=== PATIENT | male | born 1980 | race Caucasian/White ===

== ENCOUNTER 2019-07-26 17:22 | Outpatient (CLI) | payer OTHER, SELFPAY ==
--- NOTE | ~2019-07-26 | XR_ITS ---
XR shoulder LT min 2V 07/26/2019 17:54 INDICATION: Left shoulder pain PROCEDURE: 2 views left shoulder COMPARISON: No prior studies for comparison. FINDINGS: Fracture, dislocation or subluxation is not identified. The soft tissues appear within norm al limits. No foreign bodies are identified. IMPRESSION: 1: NO ACUTE BONE OR JOINT ABNORMALITY IDENTIFIED. Reviewed, dictated and finalized at location A. [facility]
== END 2019-07-26 17:23 | disposition home or self-care (01) ==
LOC: CHSIMG 17:26
PROVIDERS: PCP Family Medicine; Visit Provider Family Medicine
DX: M75.42 Impingement syndrome of left shoulder (principal); M25.512 Pain in left shoulder
CPT/HCPCS: 73030

== ENCOUNTER 2019-08-01 16:53 | Outpatient (RCR) | payer OTHER, SELFPAY ==
--- NOTE | 2019-08-01 17:55 | PTOPEVAL ---
Thank you for referring this patient to [facility] [place]. Please review, sign, date and return this plan of care [facility]. I agree with and certify that the following plan of care is medically necessary. Referring Physician Date Admitting Provider: Attending Provider: Camron Nielsen MD Referring Provider: *PT Outpatient Evaluation Start: 08/01/19 17:08 Freq: Status: Active Protocol: Document 08/01/19 17:07 OLMAN (Rec: 08/01/19 17:32 OLMAN [email or web address]) Therapy Assessment Status Assessment Status Assessment Status Evaluation Evaluation Information Problem Diagnosis left shoulder pain, impingement syndrome Onset 09/04/18 Subjective Information Pt. reports that he developed Query Text:As Reported By Patient/ shoulder pain around September of Family last year. He notes no particular incident. He describes on the top of the left shoulder and notes pain with reaching overhead. He reports no difficulty with sleeping. 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 He reports that his goal is to decrease his shoulder pain. Diagnostic Tests X-Rays For This Problem Yes Prior Level of Function Activity Level (Last 3 Months) Hand Dominance Left Activity of Daily Living Ability Independent Indoor/Home Mobility Independent Community Mobility Independent Stairs Ability Independent Functional Cognition (Planning, Shopping Independent , Taking Medications) Cooking Yes Cleaning Yes Laundry Yes Shopping Yes Driving Yes Pain Assessment Pain Scale Pain Scale Used Numeric (1 - 10) Self Report Pain Assessment Left Shoulder(s) Reported Pain Level 8 Pain Score Pain Score 8: Self Report Upper Extremity Range of Motion General Upper Extremity Range of Motion Gross Upper Extremity Range of Motion right shoulder flexion 170 Comments degrees, left shoulder flexion 138 degrees, right shoulder IR 75 degrees, left shoulder IR 50 degrees, right shoulder ER 95 degrees, left shoulder ER 75 degrees Upper Extremity
--- NOTE | 2019-09-03 11:49 | PTOPEVAL ---
Thank you for referring this patient to [facility]. Please review, sign, date and return this plan of care DIANNA. I agree with and certify that the following plan of care is medically necessary. Referring Physician Date Admitting Provider: Attending Provider: Camron Nielsen MD Referring Provider: *PT Outpatient Evaluation Start: 08/01/19 17:08 Freq: Status: Active Protocol: Document 08/31/19 12:55 OLMAN (Rec: 09/03/19 11:43 OLMAN [id number]) Therapy Assessment Status Assessment Status Assessment Status Discharge Evaluation Information Problem Diagnosis left shoulder pain Subjective Information Pt. reports that his pain is Query Text:As Reported By Patient/ much less intense. He states Family that despite pain improvments, he continues to note discouragement in regards to end range pain with overhead movement. He denies any difficulty with sleep at this time. Pt. inquires regarding possible injection. Pain Assessment Pain Scale Pain Scale Used Numeric (1 - 10) Self Report Pain Assessment Left Shoulder(s) Reported Pain Level 4 Lowest Pain Intensity 0 Greatest Pain Intensity 4 Pain Score Pain Score 4: Self Report Upper Extremity Range of Motion General Upper Extremity Range of Motion Gross Upper Extremity Range of Motion left shoulder flexion AROM 150 Comments degrees, left shoulder ER AROM 92 degrees, left shoulder IR AROM 72 degrees. Upper Extremity Muscle Strength Testing General Upper Extremity Strength Gross Upper Extremity Strength Comments left shoulder flexion 5/5, left shoulder abduction 5/5, left shoulder IR 5/5, left shoulder ER 4+/5 Special Tests-Upper Extremity Shoulder Special Tests Hawkin's Armand Test Positive Left Shoulder Special Tests Comments Neers Impingement test is positive on the left PT Clinical Summary Clinical Summary Protocol: PTEVCODE PT Clinical Summary Pt. has demonstrated progress in regards to range of motion, reported pain levels and proximal left u.e. strength. Despite these improvments he still has pain at end range of motion. At this time recommend pt. follow up with his
== END 2019-08-31 09:23 | disposition home or self-care (01) ==
LOC: CHSPT 16:53
PROVIDERS: PCP Family Medicine; Visit Provider Family Medicine
DX: M25.512 Pain in left shoulder (principal); M75.42 Impingement syndrome of left shoulder
CPT/HCPCS: 97014; 97110; 97140; 97161; G0283

== ENCOUNTER 2019-10-03 08:13 | Outpatient (CLI) | payer OTHER, SELFPAY ==
--- NOTE | ~2019-10-03 | XR_ITS ---
EXAMINATION: XR chest 2V 10/03/2019 08:33 INDICATION: Hypertension. Hyperhidrosis. PROCEDURE: 2 view chest COMPARISON: No prior studies for comparison. FINDINGS: The lungs are clear. The cardiomediastinal silhouette is within normal limits. There are no pleural effusions. There is no pneumothorax suspected. IMPRESSION: 1: NO ACUTE CARDIOPULMONARY DISEASE. Reviewed, dictated and finalized at location A.
[2019-10-03 08:26] LABS: Basophils Absolute Auto 0.05 K/mm3 (0.00-0.10); Basophils Percent Auto 0.7 % (0.0-1.0); Eosinophils Absolute Auto 0.23 K/mm3 (0.02-0.50); Eosinophils Percent Auto 3.3 % (1.0-6.0); Hematocrit 45.5 % (40.0-54.0); Hemoglobin 15.9 g/dL (14.0-18.0); Immature Granulocyte Absolute 0.04 K/mm3 (0.00-0.00); Immature Granulocyte Percent A 0.6 % (0.0-0.0); Lymphocytes Absolute Auto 2.05 K/mm3 (1.10-4.50); Lymphocytes Percent Auto 29.5 % (18.0-42.0); Mean Corpuscular HGB Conc 34.9 g/dL (32.0-36.0); Mean Corpuscular Hemoglobin 29.8 pg (27.0-31.0); Mean Corpuscular Volume 85.4 fL (78.0-102.0); Monocytes Absolute Auto 0.56 K/mm3 (0.10-0.90); Monocytes Percent Auto 8.1 % (2.0-11.0); Neutrophils Percent Auto 57.8 % (50.0-70.0); Platelet Count Result 240 K/mm3 (150-420); Red Blood Count 5.33 M/mm3 (4.70-6.10); Red Cell Distribution Width 12.4 % (11.6-14.4)
[2019-10-03 09:25] LABS: Erythrocyte Sedimentation Rate 1 mm/hr (0-15)
[2019-10-03 10:37] LABS: Alanine Aminotransferase 72 U/L (16-63); Alkaline Phosphatase 79 U/L (46-116); Anion Gap 15.6 mmol/L (7-16); Aspartate Amino Transferase 34 U/L (15-37); Bilirubin,Total 1.8 mg/dL (0.00-1.00); Blood Urea Nitrogen 12 mg/dL (7-18); Carbon Dioxide 25 mmol/L (21-32); Chloride 104 mmol/L (98-108); Estimated Glomerular Filt Rate > 60; Glucose 99 mg/dL (70-99); Osmolality Calculated 289 mOsm/kg (285-295); Potassium 4.6 mmol/L (3.5-5.1); Sodium 140 mmol/L (136-145); Total Protein 6.8 g/dL (6.4-8.2)
[2019-10-03 10:39] LABS: CRP < 0.2 mg/dL (0.0-0.9)
[2019-10-03 10:40] LABS: Thyroid Stimulating Hormone Reflex 2.43 u/IU/mL (0.36-3.74)
== END 2019-10-03 08:14 | disposition home or self-care (01) ==
LOC: CHSLAB 08:16
PROVIDERS: PCP Family Medicine; Visit Provider Specialist
DX: R61 Generalized hyperhidrosis (principal); I10 Essential (primary) hypertension
CPT/HCPCS: 36415; 71046; 80053; 84443; 85025; 85652; 86140

== ENCOUNTER 2020-09-11 07:29 | Outpatient (CLI) | payer OTHER, SELFPAY ==
--- NOTE | ~2020-09-11 | MR_ITS ---
EXAMINATION: MR shoulder LT wo con DATE: 09/11/2020 08:38 INDICATION: Impingement syndrome of the left shoulder TECHNIQUE: Magnetic resonance imaging (MRI) of the left shoulder was performed without intravenous co ntrast. Sequences included axial PD-weighted FS FSE, coronal oblique PD-weighted FS FSE, coronal obli que T2-weighted FS FSE, sagittal PD-weighted FS FSE, and sagittal T1-weighted SE. COMPARISON: None. FINDINGS: Coracoacromial arch: The acromion undersurface is curved in morphology (type II). The coracoacromial ligament is normal. M ild acromioclavicular osteoarthritis with tiny inferior osteophyte at the lateral head of the clavicl e. Rotator cuff: Mild supraspinatus and infraspinatus tendinopathy without discrete tear. Subscapularis and teres demetrius r tendons are normal. Normal rotator cuff muscle bulk and signal. Biceps tendon, glenoid labrum and glenohumeral cartilage: Long head of the biceps tendon is normal. Glenohumeral osteoarthritis with mild to moderate nonunifor m joint space narrowing with partial thickness cartilage loss with smooth chondral surface and withou t degenerative subchondral changes most prominent at the posterior superior glenoid and at the greens cutter ior and superomedial aspect of the humeral head. There are moderate size marginal osteophytes along t he inferior aspect of the humeral head. There is a linear tear at the 9:00-10:00 position of the post erior glenoid labrum. More amorphous increased signal extending into the superior glenoid labrum whic h appears consistent with less well-defined degenerative tearing. Fluid: Physiologic amount of fluid in the glenohumeral joint and biceps tendon sheath. No loose osteochondra l bodies. Small amount of fluid in the subacromial/subdeltoid bursa consistent with mild bursitis. Bones: There is cystic change at the humeral head at the bare space along the medial facet of the greater tu berosity. Otherwise normal marrow signal with no fracture or pathologic marrow replacing process. IMPRESSION: 1. Mild to moderate left glenohumeral osteoarthritis with degenerative tearing of the superior labrum and well-defined linear tear at the posterior labrum. 2. Mild supraspinatus and infraspinatus tendinopathy without discrete tear. Reviewed, dictated and finalized at location B.
== END 2020-09-11 07:30 | disposition home or self-care (01) ==
PROVIDERS: PCP Family Medicine; Visit Provider Orthopaedic Surgery
DX: M75.42 Impingement syndrome of left shoulder (principal); M19.012 Primary osteoarthritis, left shoulder
CPT/HCPCS: 73221

== ENCOUNTER 2020-09-25 14:51 | Outpatient (CLI) | payer OTHER, SELFPAY ==
--- NOTE | 2020-09-25 14:55 | ECG_ITS ---
Measurements Intervals [place] Rate: 58 P: 27 ID: [id number] QRS: 28 QRSD: 93 T: 16 QT: 395 QTc: 390 Interpretive Statements SINUS BRADYCARDIA DELAYED PRECORDIAL R/S TRANSITION BASELINE ARTIFACT- I, II, AVR, AVL, AVF BORDERLINE ECG Electronically Signed On 09-25-2020 15:22:10 CDT by Juan Torres D.O.
== END 2020-09-25 14:52 | disposition home or self-care (01) ==
LOC: ANHSURGERY 14:55
PROVIDERS: PCP Family Medicine; Visit Provider Orthopaedic Surgery
DX: Z01.818 Encounter for other preprocedural examination (principal); I10 Essential (primary) hypertension; E78.5 Hyperlipidemia, unspecified
CPT/HCPCS: 93005

== ENCOUNTER → 2020-09-30 01:04 | Outpatient (CLI) | payer OTHER, SELFPAY ==
[2020-09-30 20:47] LABS: SARS-CoV-2 RNA PCR Negative
== END ==
PROVIDERS: PCP Family Medicine; Visit Provider Orthopaedic Surgery
DX: Z01.812 Encounter for preprocedural laboratory examination (principal); Z20.822 Contact with and (suspected) exposure to COVID-19
CPT/HCPCS: C9803; U0003; U0005

== ENCOUNTER 2020-10-03 01:02 | Day surgery (SDC) | payer OTHER, SELFPAY ==
[2020-09-24 13:24] VITALS: BMI 38.2
--- NOTE | 2020-10-02 12:32 | WPDANESEPPF ---
Anes - Initial Pre Proc Eval Procedure: Operation Date: 10/03/20 12:30 Proposed Procedures p Left Shoulder Arthroscopic Labral Debridement And Subacromial Decompression, Posterior Capsular Release - Jose Stone MD Date/Time: 10/02/20 12:32 Surgeon: Jose Stone MD Pre Op Diagnosis: primary OA, Left Shoulder Patient Data Age: 40 Gender: M Height: 1.83 m Weight: 128 kg Allergies Allergy/AdvReac Type Severity Reaction Status Date / Time No Known Allergies Allergy Verified 09/24/20 13:21 Home Medications Medication Instructions Recorded Confirmed Type atenolol 25 mg tablet 50 mg PO DAILY tablet 05/17/19 09/24/20 History paroxetine HCl 20 mg tablet 10 mg PO DAILY 05/17/19 09/24/20 History rosuvastatin 20 mg tablet 20 mg PO DAILY 07/26/19 09/24/20 History Patient hx anesthesia problems: none Family hx anesthesia problems: none PMFSH Past Medical History Medical History (Updated 09/15/20 @ 16:03 by Jose Stone MD) Depression Hyperlipidemia Hypertension Impingement syndrome, shoulder, left YASMANI (obstructive sleep apnea) Uses CPAP Overweight Surgical History Surgical History History of ear surgery Hole in Right Eardrum . Family History Family History Unknown Arthritis Social History Social History Smoking packs per day: 1 Smoking cigarettes per day: 20.0 Years smoked: 17 Smoking pack-years: 17.00 Smoking status: Former smoker Tobacco type: cigarettes Smoking end date: 06/06/14 Alcohol intake: current Alcohol use details: 4/MONTH Substance use: never Substance use type: does not use Living arrangements: with family Additional living arrangements comments: Single. No Children. Additional occupation/education comments: Works at [employer] Gender identity (if verbalized by the patient): Male Spiritual care concerns: No Anes - Eval Final PreProcedure Day of Procedure 10/02/20 12:32 Patient weight: obese Heart: regular rate and rhythm Lungs: clear to auscultation and normal air movement Airway: Mallampati scale class II Neurological: alert and oriented Last oral intake: >/= 8 hours ASA classification: III Emergent: no Anesthetic plan: proceed Anesthesia type and monitoring: general ETT and standard monitoring Informed Consent: The patient's anesthetic plan and its attendant risks and benefits were discussed with the patient/family/POA. Questions were solicited and answers provided to the satisfaction of the patient/family/POA.
--- NOTE | 2020-10-02 12:37 | WPDANESPNB ---
Anes - Peripheral Nerve Block Date/Time: 10/02/20 12:37 I have discussed with the patient/family/POA the placement of a peripheral nerve block for post-operative pain management, including associated risks, benefits, complications, and side effects. Alternative methods of post-operative analgesia were detailed. Questions were solicited and answers provided to the satisfaction of the patient/family/POA. Time-Out: A pre-procedural Time-Out was completed immediately before starting the procedure and confirmed: Patient Identification, Site, Procedure, Patient Position and the Availability of Requisite Equipment. Clinical Indications: Acute post-operative pain management requested by the operative surgeon. Nerve Block Insertion Note Anes-nerve block: interscalene left Patient position: supine Skin prep: chlorhexidine Needle: 22 gauge, stimulating, insulated echogenic needle. Needle length: 50 mm Technique: ultrasound Injectate: bupivacaine 0.5% with epi 5 mcg/ml (30cc- no epi) Observations: tolerated well Complications: none Procedure start time:: 1209 Procedure end time:: 1213
[2020-10-03] VITALS (13 sets, daily range): BP systolic 118–173; BP diastolic 62–101; PULSE 50–74; RESP 14–18; TEMP 36.3–36.6; O2SAT 91–100
--- NOTE | 2020-10-03 07:28 | WPDHPUPDATE1 ---
History and Physical Update Update Date/Time: 10/03/20 07:28 History and Physical has been reviewed, including an updated exam of the patient. There are NO changes in the patient's condition. Risks, benefits, and alternatives have been discussed and questions answered. Patient agrees to proceed with procedure.
[2020-10-03] MEDS: ACETAMINOPHEN 500 MG TABLET 1000 MG PO (11:38)
[2020-10-03] MEDS: LACTATED RINGERS 1,000 ML 30 ML IV CONT ×2 (11:38→15:00)
[2020-10-03] MEDS: KETOROLAC 15 MG/ML VIAL (*BKC) IV PUSH (11:38)
[2020-10-03] MEDS: ceFAZolin 3 GM/D5W 100 ML 100 ML IVPB (12:29)
--- NOTE | 2020-10-03 17:19 | PM.PROC ---
Procedure Note - Detailed Date of procedure: 10/03/20 Post-op diagnosis: other (1. Degenerative arthritis left shoulder. 2. Impingement syndrome ) Procedure performed: 1. Arthroscopic labral debridement with chondroplasty. 2. Arthroscopic subacromial decompression. Description of procedure: The humeral head showed a large area of exposed bone, posterior superiorly. Early osteophytes were forming. Minimal synovitis; no contracture. Labrum was degenerative particularly anteriorly and posteriorly. The subscapularis was intact. No evidence of subcoracoid impingement. The posterior superior labrum was carefully trimmed and debrided. Exposed bone was evident along the entire posterior section of the glenoid approximately 15-20%. The biceps tendon appeared normal and the superior labrum was intact. The rotator cuff appeared normal both on the articular and bursal side. There was slight evidence of subacromial impingement and modest acromioplasty was performed. Anesthesia: GETA and regional Surgeon: Jose Stone MD Food And Beverage Cashier: Evelyn Carvalho PA-C Estimated blood loss (mL): 10 Complications: None Condition: stable Disposition: PACU Findings: Patient was given an interscalene block in the holding area. Preoperative antibiotics were given. The patient was brought to the operating room. Careful positioning in the lateral decubitus position was accomplished. The head neck were carefully positioned. An axillary roll was placed. The shoulder was examined. No significant instability or pathologic contracture was identified. The shoulder was prepped and draped in the usual sterile fashion. Standard posterior and anterior arthroscopic portals were established. The shoulder was inspected. The humeral head showed a large area of exposed bone, posterior superiorly. Early osteophytes were forming. Mild synovitis; no contracture. Labrum was degenerative particularly anteriorly and posteriorly. The subscapularis was intact. No evidence of subcoracoid impingement. The posterior labrum was carefully trimmed and debrided. Exposed bone was evident along the entire posterior section of the glenoid approximately 15-20%. The biceps tendon appeared normal and the superior labrum was stable. The tendon was pulled into the joint and found to have no evidence of tendinosis or tearing at the intertubercular portion. The articular rotator cuff appeared normal. Attention was turned to the subacromial space. A complete bursectomy was performed. An accessory lateral portal was created. The acromion was clearly visualized. There was subtle evidence of impingement on the bursal side rotator cuff without any significant tearing. The coracoacromial ligament was released. Careful acromioplasty was performed utilizing views from both lateral and posterior. Loose bone fragments were carefully irrigated from the joint. The arthroscopic instruments were removed. The wounds were closed with interrupted 3-0 Monocryl suture followed by Steri-Strips. A sterile dressing was applied with a sling. The patient was extubated and brought to the recovery room in stable condition. There were no complications.
== END 2020-10-03 17:42 | disposition home or self-care (01) ==
PROVIDERS: PCP Family Medicine; Visit Provider Orthopaedic Surgery
PROC: (CPT 29805; principal; 2020-10-03 12:30)
DX: M19.012 Primary osteoarthritis, left shoulder (principal); M75.42 Impingement syndrome of left shoulder; M23.42 Loose body in knee, left knee; G89.18 Other acute postprocedural pain; I10 Essential (primary) hypertension; E78.5 Hyperlipidemia, unspecified; G47.33 Obstructive sleep apnea (adult) (pediatric); E66.9 Obesity, unspecified; Z68.38 Body mass index [BMI] 38.0-38.9, adult; F32.9 Major depressive disorder, single episode, unspecified; Z87.891 Personal history of nicotine dependence
CPT/HCPCS: 64415; 29822; 93005; 94002; 94660; A4565; A9270; C9803; J0330; J0690; J1100; J1200; J1885; J2250; J2405; J2704; J2710; J3010; J7120; U0003; U0005

== ENCOUNTER 2020-10-10 07:57 | Outpatient (RCR) | payer OTHER, SELFPAY ==
--- NOTE | 2020-10-10 11:51 | PCPTNOTE ---
On 10/10/20, the student, [Lyssa Potter, SPT], provided care and completed [employer] documentation on this patient. I have reviewed the student's documentation and agree with the findings.
--- NOTE | 2020-10-10 12:23 | PTOPEVAL ---
Thank you for referring Scott Monsalve to [facility].? The patient is scheduled to be seen for therapy? ____x/week for ___ weeks. Please review, sign, date and return this plan of care DIANNA. I agree with and certify that the following plan of care is medically necessary. Referring Physician Date Admitting Provider: Attending Provider: Jose Stone MD Referring Provider: *PT Outpatient Evaluation Start: 10/10/20 07:54 Freq: Status: Active Protocol: Document 10/10/20 08:00 MS (Rec: 10/10/20 10:52 MS [email or web address]) Therapy Assessment Status Assessment Status Assessment Status Evaluation Outpatient Past Medical History Neurological History Hx Neurological Disorders No Significant History Cardiovascular History Hx Hypercholesterolemia Yes Hx Hypertension Yes Respiratory History Hx Sleep Apnea Yes: WEARS CPAP Hx Other Respiratory Disorders Yes: COVID + 06/27/20 - BODY ACHES, SNEEZING Gastrointestinal History Hx Gastrointestinal Disorders No Significant History Genitourinary History Hx Genitourinary Disorders No Significant History Musculoskeletal History Hx Arthritis Yes: BACK, HIP Hx Other Musculoskeletal Disorders Yes: OA LT SHOULDER CURRENTLY Hematological History Hx Hematological Disorders No Significant History Endocrine History Hx Endocrine Disorders No Significant History HEENT History Hx Ear Surgery Yes: 1997 Integumentary History Hx Skin Disorders No Significant History Reproductive History Hx Reproductive Disorders No Significant History Psychosocial History Hx Anxiety Yes Pain History History of Any Previous or Ongoing No Significant History Instance of Pain Anesthesia History Hx Anesthesia Reactions No Significant History Evaluation Information Problem Diagnosis L labral debridement, SAD, posterior capsule release Onset 10/03/20 Additional Evaluation Detail quick dash = 88% functionally declined Subjective Information Mr. Monsalve is a 40 year old Query Text:As Reported By Patient/ male who reports to the clinic Family s/p L labral debridement, SAD , and posterior capsule release. He reports he enters to the clinic by getting a ride from his mother who he lives in addition to his father. 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 Part of his job d
--- NOTE | 2020-10-15 16:09 | PCPTNOTE ---
On 10/15/20, the student, [Lyssa Potter, SPT], provided care and completed [employer] documentation on this patient. I have reviewed the student's documentation and agree with the findings.
--- NOTE | 2020-10-22 10:59 | PCPTNOTE ---
On 10/22/20, the student, [Lyssa Potter, SPT], provided care and completed [employer] documentation on this patient. I have reviewed the student's documentation and agree with the findings.
--- NOTE | 2020-11-06 09:16 | PCPTNOTE ---
Patient is a 40 year old male that has participated in 8 visits s/p L shoulder labral debridement. The patient presents with 174 degrees of flexion, 84 degrees of external rotation, and 74 degrees of internal rotation. He also presents with improved strength in the LUE: flexion 4+/5, ER 4/5, IR 4+/5. The patient has been progressing with open chained strengthening exercises with no increase in pain or discomfort and has consistently reported minimal pain over the past few visits. Thank you for this referral, Pamela Horton DPT
--- NOTE | 2020-11-10 14:30 | PTOPEVAL ---
Thank you for referring Scott Monsalve to [facility].? The patient is scheduled to be seen for therapy? ____x/week for ___ weeks. Please review, sign, date and return this plan of care DIANNA. I agree with and certify that the following plan of care is medically necessary. Referring Physician Date Admitting Provider: Attending Provider: Jose Stone MD Referring Provider: *PT Outpatient Evaluation Start: 10/10/20 07:54 Freq: Status: Active Protocol: Document 11/10/20 13:56 [facility] (Rec: 11/10/20 14:27 [facility] [email or web address]) Therapy Assessment Status Assessment Status Assessment Status Discharge Outpatient Past Medical History Neurological History Hx Neurological Disorders No Significant History Cardiovascular History Hx Hypercholesterolemia Yes Hx Hypertension Yes Respiratory History Hx Sleep Apnea Yes: WEARS CPAP Hx Other Respiratory Disorders Yes: COVID + 06/27/20 - BODY ACHES, SNEEZING Gastrointestinal History Hx Gastrointestinal Disorders No Significant History Genitourinary History Hx Genitourinary Disorders No Significant History Musculoskeletal History Hx Arthritis Yes: BACK, HIP Hx Other Musculoskeletal Disorders Yes: OA LT SHOULDER CURRENTLY Hematological History Hx Hematological Disorders No Significant History Endocrine History Hx Endocrine Disorders No Significant History HEENT History Hx Ear Surgery Yes: 1998 Integumentary History Hx Skin Disorders No Significant History Reproductive History Hx Reproductive Disorders No Significant History Psychosocial History Hx Anxiety Yes Pain History History of Any Previous or Ongoing No Significant History Instance of Pain Anesthesia History Hx Anesthesia Reactions No Significant History Evaluation Information Problem Diagnosis L labral debridement, SAD, posterior capsule release Onset 10/03/20 Subjective Information patient reports he feels good Query Text:As Reported By Patient/ this date. he reports he was Family released from his MD today to return to work. he reports he is returning to work tomorrow without restrictions. he reports no pain today. Pain Assessment Timing of Pain Assessment Timing of Pain Assessment Assessment Self Report Self Report Pain Level 0 Pain Score Pain Score 0: Self Report Upper Extremity Range of Motion General Upper Extremity Range of Motion Gross Upper Extremity Range of Motion arom L shoulder flex = 170 Comments degrees
== END 2020-11-10 17:37 | disposition home or self-care (01) ==
LOC: CHSPT 07:57
PROVIDERS: Visit Provider Orthopaedic Surgery
DX: Z48.89 Encounter for other specified surgical aftercare (principal)
CPT/HCPCS: 97014; 97110; 97161; G0283

== ENCOUNTER 2020-11-07 14:46 | Outpatient (CLI) | payer OTHER, SELFPAY ==
--- NOTE | ~2020-11-07 | XR_ITS ---
EXAMINATION: XR hip RT min 2V DATE: 11/07/2020 15:05 INDICATION: Chronic right hip pain. TECHNIQUE: 2 views of right hip were obtained. COMPARISON: None. FINDINGS: Bone alignment is normal. No fracture. There is mild right hip osteoarthritis. IMPRESSION: 1. Mild right hip osteoarthritis. Reviewed, dictated and finalized at location A.
== END 2020-11-07 14:47 | disposition home or self-care (01) ==
LOC: CHSIMG 14:49
PROVIDERS: PCP Family Medicine; Visit Provider Family Medicine
DX: M25.551 Pain in right hip (principal); G89.29 Other chronic pain
CPT/HCPCS: 73502

== ENCOUNTER 2020-12-16 12:50 | Outpatient (CLI) | payer OTHER, SELFPAY ==
--- NOTE | ~2020-12-16 | MR_ITS ---
EXAMINATION: MR hip RT wo con DATE: 12/16/2020 13:58 INDICATION: Right hip pain TECHNIQUE: Magnetic resonance imaging (MRI) of the right hip was performed without intravenous contr ast. Sequences included full-field axial PD-weighted FS FSE and T1-weighted FSE, coronal of the pelvi s with PD-weighted FS FSE, small field of view of the right hip with axial PD-weighted FS FSE, sagit nils PD-weighted FS FSE and coronal PD weighted FS FSE. Additional radial T1-weighted FGR oriented ort hogonal to the acetabular rim were obtained for evaluation of the labrum. COMPARISON: None FINDINGS: Bones/labrum/cartilage: Alignment is normal. No fracture, avascular necrosis or pathologic marrow replacing process. Labrum is normal. There is mild nonuniform joint space narrowing at the right hip with partial thickness car tilage loss with smooth chondral surface most prominent at the posterior superior aspect of the joint space. Mild lower lumbar spondylosis with disc height loss at L5-S1 and right paracentral disc protr usion versus extrusion at L4-L5. Fluid: Symmetric physiologic amount of fluid within both hip joints. Soft tissues: Normal and symmetric muscle bulk and signal in the pelvis and visualized proximal thighs. The iliopso as, gluteal and proximal hamstring tendons are normal. Limited evaluation of visceral organs of the p serge is unremarkable including a normal appendix. No pathologically enlarged pelvic/inguinal lympha denopathy. IMPRESSION: 1. Mild right hip osteoarthritis. 2. Mild lower lumbar spondylosis. Reviewed, dictated and finalized at location A.
== END 2020-12-16 12:51 | disposition home or self-care (01) ==
PROVIDERS: PCP Family Medicine; Visit Provider Family Medicine
DX: M25.559 Pain in unspecified hip (principal); M16.11 Unilateral primary osteoarthritis, right hip; M47.816 Spondylosis without myelopathy or radiculopathy, lumbar region
CPT/HCPCS: 73721

== ENCOUNTER → 2022-04-07 10:53 | Outpatient (CLI) | payer OTHER, SELFPAY ==
--- NOTE | ~2022-04-07 | US_ITS ---
US abdomen limited DATE: 04/07/2022 14:27 INDICATION: Elevated serum bilirubin TECHNIQUE: Real-time imaging and Doppler analysis COMPARISON: None FINDINGS: A 9 mm left hepatic cyst is noted. No other hepatic space-occupying mass lesion is evident. Normal hepatopedal portal venous flow direction. There is a nonmobile 4 mm polyp along the posterior mid wall of the body of the gallbladder. No galls tones, gallbladder wall thickening or pericholecystic fluid is noted otherwise. Negative sonographic Noland's sign. The common bile duct measures 4 mm, normal. The pancreatic tail is obscured. The pancreas is otherwise unremarkable. IMPRESSION: 4 mm gallbladder polyp 9 mm left hepatic cyst Reviewed, dictated and finalized at Location A. Reviewed, dictated and finalized at location A.
== END ==
PROVIDERS: PCP Nurse Practitioner Family; Visit Provider Nurse Practitioner Family
DX: K82.4 Cholesterolosis of gallbladder (principal); K76.89 Other specified diseases of liver
CPT/HCPCS: 76705

== ENCOUNTER 2023-08-22 10:17 | Outpatient (CLI) | payer OTHER, SELFPAY | END 2023-08-22 10:18 | disposition home or self-care (01) | LOC: CHSAUDIO 10:19 | PROVIDERS: PCP Otolaryngology; Visit Provider Otolaryngology | DX: H91.90 Unspecified hearing loss, unspecified ear (principal) | CPT/HCPCS: 92557; 92567 ==

== ENCOUNTER 2024-01-27 09:11 | Outpatient (CLI) | payer OTHER, SELFPAY ==
[2024-01-27 09:28] LABS: Basophils Absolute Auto 0.07 K/mm3 (0.00-0.10); Basophils Percent Auto 0.9 % (0.0-1.0); Eosinophils Absolute Auto 0.12 K/mm3 (0.02-0.50); Eosinophils Percent Auto 1.6 % (1.0-6.0); Hemoglobin 16.3 g/dL (14.0-18.0); Immature Granulocyte Absolute 0.05 K/mm3 (0.00-0.00); Immature Granulocyte Percent A 0.7 % (0.0-0.0); Lymphocytes Absolute Auto 2.71 K/mm3 (1.10-4.50); Lymphocytes Percent Auto 35.3 % (18.0-42.0); Mean Corpuscular Hemoglobin 28.6 pg (27.0-31.0); Mean Corpuscular Volume 84.2 fL (78.0-102.0); Mean Platelet Volume 9.5 fl (8.7-11.0); Monocytes Absolute Auto 0.65 K/mm3 (0.10-0.90); Monocytes Percent Auto 8.5 % (2.0-11.0); Neutrophils Absolute Auto 4.08 K/mm3 (1.70-7.20); Platelet Count Result 299 K/mm3 (150-420); Red Cell Distribution Width 12.6 % (11.6-14.4); White Blood Count 7.7 K/mm3 (4.8-10.8)
[2024-01-27 09:47] LABS: Hemoglobin A1C 5.4 % (<5.7)
[2024-01-27 10:26] LABS: Alanine Aminotransferase 48 U/L (16-63); Albumin Level 4.5 g/dL (3.4-5.0); Alkaline Phosphatase 86 U/L (46-116); Anion Gap 10 mmol/L (4-12); Aspartate Amino Transferase 24 U/L (15-37); Blood Urea Nitrogen 12 mg/dL (7-18); Calcium 9.8 mg/dL (8.5-10.1); Carbon Dioxide 28 mmol/L (21-32); Chloride 100 mmol/L (98-108); Cholesterol 137 mg/dL (0-200); Estimated Glomerular Filt Rate > 60; Glucose 95 mg/dL (70-99); HDL Direct 39 mg/dL (40-60); LDL Cholesterol Calculated 67 mg/dL (<130); Osmolality Calculated 285 mOsm/kg (285-295); Potassium 4.6 mmol/L (3.5-5.1); Sodium 138 mmol/L (136-145); Total Protein 7.2 g/dL (6.4-8.2); Triglycerides 153 mg/dL (0-150)
[2024-01-28 13:38] LABS: Bermuda Grass (G2) IgE <0.10 kU/L; Bermuda Grass (G2) IgE Class 0; Cat Dander IgE <0.10 kU/L; Cat Dander IgE Class 0; Cockroach IgE <0.10 kU/L; Cockroach IgE Clas 0; Common Ragweed IgE Class 0; Cottonwood IgE <0.10 kU/L; Dog Dander IgE <0.10 kU/L; Elm (T8) IgE <0.10 kU/L; Elm (T8) IgE Class 0; Hickory/Pecan IgE <0.10 kU/L; Hickory/Pecan IgE Class 0; Immunoglobulin E 51 kU/L (<OR=114); Maple Box Elder IgE Class 0; Mountain Cedar IgE <0.10 kU/L; Mountain Cedar IgE Class 0; Mouse Urine Proteins IgE <0.10 kU/L; Mouse Urine Proteins IgE Class 0; Oak IgE <0.10 kU/L; Rough Marsh <0.10 kU/L; Rough Marsh Elder Class 0; Rough Pigweed (W14) IgE <0.10 kU/L; Rough Pigweed (W14) IgE Class 0; Russian Thistle <0.10 kU/L; Sycamore IgE <0.10 kU/L; Sycamore IgE Class 0; Timothy Grass IgE <0.10 kU/L; Timothy Grass IgE Class 0; Walnut Tree IgE <0.10 kU/L; Walnut Tree IgE Class 0; White Ash IgE Class 0; White Mulberry IgE <0.10 kU/L; White Mulberry IgE Class 0
[2024-01-31 13:09] LABS: Almond (F20) IgE <0.10 kU/L; Cashew Nut (F202) IgE <0.10 kU/L; Cashew Nut (F202) IgE Class 0; Codfish (F3) IgE <0.10 kU/L; Codfish (F3) IgE Class 0; Cow's Milk (F2) IgE 0.12 kU/L; Cow's Milk (F2) IgE Class 0/1; Egg White (F1) IgE <0.10 kU/L; Egg White (F1) IgE Class 0; Hazelnut (F17) IgE <0.10 kU/L; Hazelnut (F17) IgE Class 0; Peanut (F13) IgE <0.10 kU/L; Peanut (F13) IgE Class 0; Salmon (F41) IgE <0.10 kU/L; Salmon (F41) IgE Class 0; Scallop (F338) IgE <0.10 kU/L; Scallop (F338) IgE Class 0; Sesame Seed <0.10 kU/L; Shrimp (F24) IgE <0.10 kU/L; Soybean (F14) IgE <0.10 kU/L; Soybean (F14) IgE Class 0; Tuna (F40) <0.10 kU/L; Tuna (F40) Class 0; Walnut (F256) IgE <0.10 kU/L; Walnut (F256) IgE Class 0; Wheat (F4) IgE <0.10 kU/L; Wheat (F4) IgE Class 0
[2024-02-01 11:23] LABS: Alternaria alternata IgE <0.10 kU/L; Alternaria alternata IgE Class 0; Aspergillus fumigatus IgE <0.10 kU/L; Cladosporium herbarum IgE <0.10 kU/L; Cladosporium herbarum IgE Clas 0; Dermatophagoides Farinae Class 0; Dermatophagoides Pterony Class 0; Dermatophagoides Pteronyssinus <0.10 kU/L; Peniciliium notatum class 0; Penicillium notatum (M1) IgE <0.10 kU/L
== END 2024-01-27 09:12 | disposition home or self-care (01) ==
LOC: CHSLAB 09:14
PROVIDERS: PCP Nurse Practitioner Family; Visit Provider Nurse Practitioner Family
DX: Z00.00 Encounter for general adult medical examination without abnormal findings (principal); J32.9 Chronic sinusitis, unspecified
CPT/HCPCS: 36415; 80053; 80061; 82785; 83036; 84443; 85025; 86003

== ENCOUNTER 2024-07-25 00:16 | Day surgery (SDC) | payer OTHER, SELFPAY ==
[2024-07-09 09:20] VITALS: BMI 34.3
--- OUTSIDE RECORDS SUMMARY | 2024-07-25 00:20 | XMS_ITS | Clinical Summary ---
Author Organization [facility] Address [address] [place] [address] Care Team Providers Care Wood Products Manufacturer Name Role Phone Yash Loza MD Primary Care Provider Allergies No known active allergies Medications atenoloL (TENORMIN) 50 mg tablet Take 50 mg by mouth daily 08/19/2020 Active PARoxetine (PAXIL) 10 mg tablet Take 10 mg by mouth daily 10/23/2020 Active rosuvastatin (CRESTOR) 20 mg tablet Take 20 mg by mouth daily 08/19/2020 Active Active Problems No known active problems Surgical History Surgery Date Site/Laterality Comments SHOULDER ARTHROSCOPY Medical History Medical History Date Comments Hypertension Peripheral neuropathy Osteoarthritis Family History Medical History Relation Name Comments Arthritis Other Heart disease Other Relation Name Status Comments Other Social History Tobacco Use Types Packs/Day Years Used Date Smoking Tobacco: Former Smokeless Tobacco: Never AUDIT-C Answer Date Recorded Q1: How often do you have a drink containing alc ohol? Monthly or less 02/03/2021 Average Number of Drinks Not on file Frequency of Binge Drinking Not on file 01/06 Personal Safety Answer Date Recorded Getting School Help Needed Not on file 08/20 Sex and Gender Information Value Date Recorded Sex Assigned at Not on file Legal Sex Male 3:08 PM CDT Gender Identity Not on file Sexual Orientation Not on file Obstetrics History Last Filed Vital Signs Vital Sign Reading Time Taken Comments Blood Pressure 127/83 02/03/2021 11:05 AM CDT Pulse 53 02/03/2021 11:05 AM CDT Temperature - - Respiratory Rate - - Oxygen Saturation - - Inhaled Oxygen Concentration - - Weight 137.9 kg (304 lb) 02/03/2021 11:05 AM CDT Height 182.9 cm (6') 02/03/2021 11:05 AM CDT Body Mass Index 41.23 02/03/2021 11:05 AM CDT Plan of Treatment Not on file Insurance [facility] H[facility]/PPO Address: [address] [address] Care Teams Wood Products Manufacturer Relationship Specialty Start Date End Date Yash Loza MD [address] [place] [address] [place] [address] PCP - General Family Medicine 12/16/20
--- OUTSIDE RECORDS SUMMARY | 2024-07-25 00:20 | XMS_ITS | Clinical Summary ---
Author Organization [facility] [place] Address [address] [address] Care Team Providers Care Molder Fitting Name Role Phone Kelvin Aguilera DO Primary Care Provider [phone] Allergies No known active allergies Medications lisinopriL (PRINIVIL) 10 mg tabletIndication s:HTN (hypertension), benign Take 1 Tablet (10 mg) by mouth daily. 90 Tablet 1 06/21/2023 Active rosuvastatin (CRESTOR) 20 mg tablet take 1 tablet daily 90 Tablet 3 12/02/2023 Active PARoxetine HCl (PAXIL) 10 mg tabletIndication s:Anxiety state take 1 tablet daily 90 Tablet 3 12/02/2023 Active Active Problems Problem Noted Date Diagnosed Date Generalized anxiety disorder 06/21/2023 YASMANI on CPAP 12/03/2022 Overview (12/03/2022): Severe on sleep study 2017. In Media Vitamin D deficiency 11/26/2022 Elevated bilirubin 11/26/2022 Overview (11/26/2022): Negative eval at hepatology consult 2021 Environmental and seasonal allergies 09/02/2021 Anxiety state 05/18/2019 HTN (hypertension), benign 05/18/2019 Hyperlipidemia Encounters Date Type Department Care Team Description 07/10/2024 External Device Data [facility] ABSTRACTION Provider, Abstract 06/27/2024 External Device Data [facility] AB[facility] Provider, Abstract 06/26/2024 External Device Data [facility] Provider, Abstract from Last 3 Months Immunizations Immunization Administration Dates Next Due (ADACEL/BOOSTRIX)(10 YR UP) TDAP VACCINE, 0.5ML, IM 05/18/2019 (PFIZER)(12 YR UP) COVID-19 VACCINE - EMERGENCY USE AUTHORIZATION, MRNA, [id number](PF) 30 MCG/0.3 ML IM SUSP 11/11/2020,10/21/2020 INFLUENZA VACCINE QUADRIVALENT 6 MOS UP IM 03/07 INFLUENZA VACCINE QUADRIVALE NT 6 MOS UP PF IM 03/17/2023,03/25/2021,03/03/2020 INFLUENZA VACCINE TRIVALENT SPLIT VIRUS, (6 MOS UP), 0.5ML (PF), IM 03/14/2024 Family History Medical History Relation Name Comments Heart Disease Father Hypertension Father Diabetes Maternal Grandmother Healthy Mother Relation Name Status Comments Father Alive Maternal Grandmother Mother Alive Social History Tobacco Use Types Packs/Day Years Used Date Smoking Tobacco: Former Smokeless Tobacco: Never Tobacco Cessation:Counseling Given: Not Answered Alcohol Use Standard Drinks/Week Comments Yes 3 (1 standard drink = 0.6 oz pur e alcohol) Sex and Gender Information Value Date Recorded Sex Assigned at Not on file Legal Sex Male 7:42 AM CDT Gender Identity Not on file Sexual Orientation Not on file Last Filed Vital Signs Vital Sign Reading Time Taken Comments Blood Pressure 128/76 08/29/2023 10:18 AM CDT Pulse 61 06/21/2023 7:29 AM EMERGENCY ROOM TECH Temperature 36.3 C (97.3 F) 06/21/2023 7:29 AM EMERGENCY ROOM TECH Respiratory Rate 18 06/21/2023 7:29 AM EMERGENCY ROOM TECH Oxygen Saturation 95% 06/21/2023 7:29 AM EMERGENCY ROOM TECH Inhaled Oxygen Concentration - - Weight 128.4 kg (283 lb) 08/29/2023 10:18 AM CDT Height 185.4 cm (6' 1 ) 08/29/2023 10:18 AM CDT Body Mass Index 37.34 08/29/2023 10:18 AM CDT Plan of Treatment Health Maintenance Due Date Last Done Comments HEPATITIS B VACCINES (1 of 3 - 19+ 3-dose series) 1998 COLORECTAL SCREENING 01/12/2024 Colorectal Cancer Screening 01/12/2024 FIT-DNA Q 3 years 01/12/2024 FIT/FOBT Q 1 year 01/12/2024 Flex Sig/CT Colonography Q 5 years 01/12/2024 COVID-19 Vaccine (2023- season) 2024 11/11/2020, 10/21/2020 Pre-Diabetes and Diabetes Screening 03/31/2025 03/31/2022, 09/02/2021, 05/21/2020 DTAP/TDAP/TD VACCINES (2 - Td or Tdap) 05/18/2029 05/18/2019 INFLUENZA VACCINE Completed 03/14/2024, , 03/25/2021, Additional history exists HPV VACCINES Aged Out No longer eligi ble based on patient's age to complete this topic PNEUMOCOCCAL VACCINE 0-64 YEARS Aged Out No longer eligible based on patient's age to complete this topic Procedures Procedure Name Priority Date/Time Associated Diagnosis Comments HEMOGLOBIN A1C Routine 03/31/2022 7:19 AM CDT Screening for condition from Last 3 Months or Most Recently Relevant to Health Maintenance Results * HEMOGLOBIN A1C (03/31/2022 7:19 AM CDT) HEMOGLOBIN A1C 5.4 <5.7 % of total Hgb [facility] [place] [facility] Comment: For the purpose of screening for the presence of diabetes: <5.7% Consistent with the absence of diabetes 5.7-6.4% Consistent with increased risk for diabetes (prediabetes) > or =6.5% Consistent with diabetes This assay result is consistent with a decreased risk of diabetes. Currently, no consensus exists regarding use of hemoglobin A1c for diagnosis of diabetes in children. According to [place] Diabetes Association (ADA) guidelines, hemoglobin A1c <7.0% represents optimal control in non- diabetic patients. Different metrics may apply to specific patient populations. Standards of Medical Care in Diabetes(ADA). ESTIMATED AVERAGE GLUCOSE (MG/DL) 108 mg/dL [facility] ESTIMATED AVERAGE GLUCOSE (MMOL/L) 6.0 mmol/L [facility] Comment: Test Performed at: [facility] [address] [place] [address] Marco Roberto D.O., MPH Blood 03/31/2022 7:19 AM CDT 04/01/2022 8:27 AM CDT Shira An[facility] CHEMISTRY ORDERABLES F inal Result [facility] [phone] [facility] [address] [phone] from Last 3 Months or Most Recently Relevant to Health Maintenance Insurance * Guarantor: [employer] D (C) Account Type Relation to Patient Date of Phone Billing Address Corporate Employer ATTN: [employer] [address] [address] [place] Care Teams Molder Fitting Relationship Specialty Start Date End Date Kelvin Aguilera DO [address] [place] [phone] PCP - General Family Practice 12/19/23
--- OUTSIDE RECORDS SUMMARY | 2024-07-25 00:20 | XMS_ITS | Referral Summary ---
Author Organization [facility] Address [address] [place] [address] Care Team Providers Care Hat Renovator Name Role Phone Yash Loza MD Primary Care Provider Allergies No known active allergies Medications atenoloL (TENORMIN) 50 mg tablet Take 50 mg by mouth daily 08/19/2020 Active PARoxetine (PAXIL) 10 mg tablet Take 10 mg by mouth daily 10/23/2020 Active rosuvastatin (CRESTOR) 20 mg tablet Take 20 mg by mouth daily 08/19/2020 Active Active Problems No known active problems Social History Tobacco Use Types Packs/Day Years Used Date Smoking Tobacco: Former Smokeless Tobacco: Never AUDIT-C Answer Date Recorded Q1: How often do you have a drink containing alc ohol? Monthly or less 02/03/2021 Average Number of Drinks Not on file 021 Frequency of Binge Drinking Not on file [...] Plan of Treatment Not on file Insurance [facility] HMO/PPO Address: [address] [address] Care Teams Hat Renovator Relationship Specialty Start Date End Date Yash Lzoa MD [address] [place] [address] [place] [address] PCP - General Family Medicine 12/16/20
[2024-07-25 06:17] VITALS: BP 134/97; PULSE 65; RESP 18; TEMP 36.3; O2SAT 99; BMI 34.8
[2024-07-25] MEDS: LACTATED RINGERS 1,000 ML 150 ML IV CONT (06:25)
--- NOTE | 2024-07-25 07:05 | WPDANESEPPF ---
Anes - Initial Pre Proc Eval Procedure: Operation Date: 07/25/24 07:30 Proposed Procedures p Colonoscopy - Gerry Jeronimo MD Date/Time: 07/25/24 07:05 Surgeon: Gerry Jeronimo MD Pre Op Diagnosis: fecal abnormalities Patient Data Age: 44 Gender: M Height: 1.85 m Weight: 119.7 kg Last Vital Signs Temp 36.3 C L 07/25/24 06:17 Pulse 65 07/25/24 06:17 Resp 18 07/25/24 06:17 BP 134/97 H 07/25/24 06:17 Pulse Ox 99 07/25/24 06:17 O2 Del Method Room Air 07/25/24 06:17 Allergies Allergy/AdvReac Type Severity Reaction Status Date / Time No Known Allergies Allergy Verified 07/25/24 06:16 Home Medications ?Medication ?Instructions ?Recorded ?Confirmed ?Type paroxetine HCl 20 mg tablet 10 mg PO DAILY 05/17/19 07/25/24 History lisinopril 10 mg tablet 10 mg PO DAILY #90 tabs 01/31/24 07/25/24 Rx rosuvastatin 20 mg tablet See Rx Instructions .Route 07/16/24 07/25/24 Rx .COMPLEX #90 tabs Patient hx anesthesia problems: none Family hx anesthesia problems: none Results Review: All pre-operative results and documents have been reviewed as part of the pre-operative evaluation. [facility] Past Medical History Medical History Abnormal gallbladder ultrasound Depression Hyperbilirubinemia Hyperlipidemia Hypertension Impingement syndrome, shoulder, left YASMANI (obstructive sleep apnea) Uses CPAP Overweight Surgical History Surgical History History of arthroscopic surgery of shoulder (~10/03/20) History of ear surgery Hole in Right Eardrum . Family History Family History Unknown Arthritis Social History Social History Smoking packs per day: 1 Smoking cigarettes per day: 20.0 Years smoked: 10 Smoking pack-years: 10.00 Smoking status: Former smoker Tobacco type: cigarettes Smoking end date: 06/06/14 Alcohol intake: never Alcohol use details: drink through 30s but now rarely - not currently drinking. Substance use: current Substance use type: marijuana Other substance usage details: Daily Do You Feel Safe in your Home?: Yes Lack of Transportation: No Lack of Food: Never True Current Housing: I Have Housing Concerned About Future Housing: No Difficulty Paying Gas/Electric Bills: No Difficulty Paying for Meds: No Currently Unemployed: No Education: Associate Degree Living arrangements: with family Additional living arrangements comments: mother Sheffield, Occupation/Education: occupation Additional occupation/education comments: Works at [employer] Gender identity (if verbalized by the patient): Male Spiritual care concerns: No Anes - Eval Final PreProcedure Day of Procedure 07/25/24 07:05 Patient weight: obese Heart: regular rate and rhythm Lungs: clear to auscultation Airway: Mallampati scale class II Neurological: alert and oriented Last oral intake: >/= 8 hours ASA classification: III Emergent: no Anesthetic plan: proceed Anesthesia type and monitoring: general GIVS and standard monitoring Results Review: All pre-operative results and documents have been reviewed as part of the pre-operative evaluation. Informed Consent: The patient's anesthetic plan and its attendant risks and benefits were discussed with the patient/family/POA. Questions were solicited and answers provided to the satisfaction of the patient/family/POA.
--- NOTE | 2024-07-25 07:07 | P.HP_ITS ---
H&P: HPI History of Present Illness Date/Time: 07/25/24 07:07 Chief Complaint: screening colonoscopy Narrative: This is the patient's first colonoscopy. he was found to be Cologuard positive. There are no GI symptoms and there is no family history of colorectal cancer. Review of Systems Review of Systems: All systems reviewed & are unremarkable except as noted in HPI and below PMFSH Past Medical History Medical History Abnormal gallbladder ultrasound Depression Hyperbilirubinemia Hyperlipidemia Hypertension Impingement syndrome, shoulder, left YASMANI (obstructive sleep apnea) Uses CPAP Overweight Surgical History Surgical History History of arthroscopic surgery of shoulder (~10/03/20) History of ear surgery Hole in Right Eardrum . Family History Family History Unknown Arthritis Social History Social History Smoking packs per day: 1 Smoking cigarettes per day: 20.0 Years smoked: 10 Smoking pack-years: 10.00 Smoking status: Former smoker Tobacco type: cigarettes Smoking end date: 06/06/14 Alcohol intake: never Alcohol use details: drink through 30s but now rarely - not currently drinking. Substance use: current Substance use type: marijuana Other substance usage details: Daily Do You Feel Safe in your Home?: Yes Lack of Transportation: No Lack of Food: Never True Current Housing: I Have Housing Concerned About Future Housing: No Difficulty Paying Gas/Electric Bills: No Difficulty Paying for Meds: No Currently Unemployed: No Education: Associate Degree Living arrangements: with family Additional living arrangements comments: mother [place], Occupation/Education: occupation Additional occupation/education comments: Works at [employer] Gender identity (if verbalized by the patient): Male Spiritual care concerns: No Meds Home Medications and Allergies Home Medications ?Medication ?Instructions ?Recorded ?Confirmed ?Type paroxetine HCl 20 mg tablet 10 mg PO DAILY 05/17/19 07/25/24 History lisinopril 10 mg tablet 10 mg PO DAILY #90 tabs 01/31/24 07/25/24 Rx rosuvastatin 20 mg tablet See Rx Instructions .Route 07/16/24 07/25/24 Rx .COMPLEX #90 tabs Allergies Allergy/AdvReac Type Severity Reaction Status Date / Time No Known Allergies Allergy Verified 07/25/24 06:16 Vital Signs Vital Signs - 24 hr 07/25/24 06:17 Temperature 97.4 F L Pulse Rate 65 Respiratory Rate 18 Blood Pressure 134/97 H Pulse Oximetry 99 Oxygen Delivery Room Air Exam Const: General: cooperative and healthy appearing Resp: Effort & Inspection: normal respiratory effort and able to speak in complete sentences Auscultation: clear to auscultation bilaterally Cardio: Rate: regular rate Rhythm: regular rhythm GI: Inspection: normal to inspection GI Palp: No No hepatosplenomegaly present Auscultation: normal bowel sounds Rectal Exam: deferred Skin: General skin exam: normal color Psych: Appearance: grossly normal Mental Status: mental status grossly normal Assessment and Plan Assessment and plan (1) Positive colorectal cancer screening using Cologuard test: Code(s): R19.5 - Other fecal abnormalities Status: Acute Assessment and Plan: The patient is deemed a good candidate for the procedure. Consent signed. Will proceed.
[2024-07-25 08:16] VITALS: BP 113/78; PULSE 70; RESP 22; O2SAT 97
[2024-07-25 08:26] VITALS: BP 106/55; PULSE 61; RESP 20; O2SAT 98
[2024-07-25 08:36] VITALS: BP 128/91; PULSE 52; RESP 17; O2SAT 99
== END 2024-07-25 08:57 | disposition home or self-care (01) ==
PROVIDERS: PCP Family Medicine; Visit Provider Internal Medicine Gastroenterology
PROC: 0DJD8ZZ Inspection of Lower Intestinal Tract, Via Natural or Artificial Opening Endoscopic (ICD-10-PCS; CPT 45378; principal; 2024-07-25 07:30)
DX: R19.5 Other fecal abnormalities (principal); D12.4 Benign neoplasm of descending colon; D12.5 Benign neoplasm of sigmoid colon; D12.3 Benign neoplasm of transverse colon; D37.4 Neoplasm of uncertain behavior of colon; E78.5 Hyperlipidemia, unspecified; I10 Essential (primary) hypertension; F32.A Depression, unspecified; M75.42 Impingement syndrome of left shoulder; G47.33 Obstructive sleep apnea (adult) (pediatric); F12.90 Cannabis use, unspecified, uncomplicated; E66.9 Obesity, unspecified; Z68.34 Body mass index [BMI] 34.0-34.9, adult; Z99.89 Dependence on other enabling machines and devices; Z98.890 Other specified postprocedural states; Z87.891 Personal history of nicotine dependence
CPT/HCPCS: 45380; 45381; 45385; 88305; J2704; J7120

== ENCOUNTER 2024-08-01 08:34 | Outpatient (CLI) | payer OTHER, SELFPAY ==
--- NOTE | ~2024-08-01 | CT_ITS ---
EXAMINATION: CT chest abdomen pelvis w con DATE: 08/01/2024 09:08 INDICATION: Colon cancer TECHNIQUE: Computed tomography (CT) of the chest, abdomen, and pelvis was performed with 100 mL Omnip aque-350 intravenous contrast. Automated exposure control and iterative reconstruction technique were employed. The dose-length product was 1468.64 mGy-cm. COMPARISON: None FINDINGS: CHEST CT: 3.1 cm right thyroid nodule. 1.2 cm nodule with lobular margins in the right lower lobe. 3 mm left lo wer lobe nodule. 3 mm calcified right middle lobe nodule consistent with old granulomatous disease. N o pulmonary edema or pleural effusion. Heart size is normal. Small amount of atherosclerotic coronary artery calcification. No pericardial effusion. Thoracic aorta is normal in caliber with no dissectio n. No pathologically enlarged thoracic lymphadenopathy. Mild thoracic spondylosis. ABDOMEN/PELVIS CT: Diffuse hepatic steatosis with couple subcentimeter low-attenuation likely cysts or hemangiomas. Ther e is an additional 8 mm low-attenuation likely cyst or hemangioma in the spleen. Tiny gallstones at t he dependent fundus of the normal-appearing gallbladder. Pancreas, bilateral adrenal glands and kidne ys are normal. Bladder is normal. Small bowel and appendix are normal. There is short segment of focal wall thickening at the mid sigmoid colon with associated focal increa sed prominence of the adjacent vasa recta which is suspicious for the site of the reported colon canc er. There is also an immediately adjacent mildly prominent 10 x 7 mm mesenteric lymph node which rais es suspicion for metastatic disease. No other pathologically enlarged abdominal or pelvic lymphadenop athy. No free intraperitoneal gas or fluid. L5 spondylolysis with bilateral pars intra-articular is defects, 6 mm anterolisthesis L5 on S1 and is associated mild disc height loss with degenerative endp late changes. IMPRESSION: 1. Focal wall thickening at the mid sigmoid colon consistent with reported primary colon cancer with suspicious 10 x 7 mm lymph node at the immediately adjacent sigmoid mesentery raising concern for met astatic disease. 2. Indeterminate 1.2 cm right lower lobe nodule with lobular margins also suspicious for malignancy w hich could be either metastatic or primary. Consider CT-guided percutaneous biopsy. 3. Cholelithiasis. Reviewed, dictated and finalized at location B. OPERATOR IMPRESSION: 1. Focal wall thickening at the mid sigmoid colon consistent with reported prim mary colon cancer with suspicious 10 x 7 mm lymph node at the immediately adjace nt sigmoid mesentery raising concern for metastatic disease. 2. Indeterminate 1.2 cm right lower lobe nodule with lobular margins also suspi cious for malignancy which could be either metastatic or primary. Consider CT-g uided percutaneous biopsy. 3. Cholelithiasis.
--- OUTSIDE RECORDS SUMMARY | 2024-08-01 08:58 | XMS_ITS | Clinical Summary ---
Author Organization [facility] [employer] [place] Address [address] [place] [address] Care Team Providers Care Manager Clinical Services Name Role Phone Kelvin Aguilera DO Primary Care Provider [phone] Allergies No known active allergies Medications lisinopriL [...] Encounters Date Type Department Care Team Description 07/31/2024 External Device Data [facility] ABSTRACTION Provider, Abstract 07/10/2024 External Device Data [facility] ABSTRACTION Provider, Abstract 06/27/2024 External Device Data [facility] ABSTRACTION Provider, Abstract 06/26/2024 External Device Data [facility] ABSTRACTION Provider, Abstract from Last 3 Months Immunizations Immunization Administration Dates Next Due (ADACEL/BOOSTRIX)(10 YR UP) TDAP VACCINE, 0.5ML, IM 05/18/2019 (PFIZER)(12 YR UP) COVID-19 VACCINE - EMERGENCY USE AUTHORIZATION, MRNA, [id number](PF) 30 MCG/0.3 ML IM SUSP 11/11/2020,10/21/2020 INFLUENZA [...] AM CDT Pulse 61 06/21/2023 7:29 AM DIGITAL MARKETING COORDINATOR Temperature 36.3 C (97.3 F) 06/21/2023 7:29 AM DIGITAL MARKETING COORDINATOR Respiratory Rate 18 06/21/2023 7:29 AM DIGITAL MARKETING COORDINATOR Oxygen Saturation 95% 06/21/2023 7:29 AM DIGITAL MARKETING COORDINATOR Inhaled Oxygen Concentration - - Weight 128.4 [...] Colonography Q 5 years 01/12/2024 COVID-19 Vaccine (3 - 4-25 season) 2024 11/11/2020, 10/21/2020 Pre-Diabetes and Diabetes [...] A1C 5.4 <5.7 % of total Hgb [facility] Comment: For the purpose of screening for the presence of diabetes: <5.7% Consistent with the absence of diabetes 5.7-6.4% Consistent with increased risk for diabetes (prediabetes) > or =6.5% Consistent with diabetes This assay result is consistent with a decreased risk of diabetes. Currently, no consensus exists regarding use of hemoglobin A1c for diagnosis of diabetes in children. According to [place] Diabetes Association (ADA) guidelines, hemoglobin A1c <7.0% represents optimal control in non- diabetic patients. Different metrics may apply to specific patient populations. Standards of Medical Care in Diabetes(ADA). ESTIMATED AVERAGE GLUCOSE (MG/DL) 108 mg/dL [facility] ESTIMATED AVERAGE GLUCOSE (MMOL/L) 6.0 mmol/L [facility] Comment: Test Performed at: [facility] [address] [place] [address] Marco Roberto D.O., MPH Blood 03/31/2022 7:19 AM CDT 04/01/2022 8:27 AM CDT Shira Nathalie Silvio PERSONAL FINANCIAL PLANNER CHEMISTRY ORDERABLES F inal Result [facility] [phone] [facility] [address] [phone] from Last 3 Months or Most Recently Relevant to Health Maintenance Insurance * Guarantor: [employer] D (C) Account Type Relation to Patient Date of Phone Billing Address Corporate Employer ATTN: [employer] [address] [address] [place] [employer] Care Teams Manager Clinical Services Relationship Specialty Start Date End Date Kelvin Aguilera DO [address] [place] [phone] PCP - General Family Practice 12/19/23
--- OUTSIDE RECORDS SUMMARY | 2024-08-01 08:58 | XMS_ITS | Encounter Summary ---
Author Organization [facility] Address [address] [place] [address] Care Team Providers Care International Flight Attendant Name Role Phone Kelvin Aguilera DO Primary Care Provider Encounter Details Date Type Department Care Team (Late st Contact Info) Description 07/31/2024 External Device Data [facility]STRACTION Provider, Abstract NO ADDRESS ON FILE Social History Tobacco Use Types Packs/Day Years Used Date Smoking Tobacco: Former Smokeless Tobacco: Never Alcohol Use Standard Drinks/Week Comments Yes 3 (1 standard drink = 0.6 oz pur e alcohol) Sex and Gender Information Value Date Recorded Sex Assigned at Not on file Legal Sex Male 7:42 AM CDT Gender Identity Not on file Sexual Orientation Not on file documented as of this encounter Plan of Treatment Not on file documented as of this encounter Visit Diagnoses Not on filedocumented in this encounter Care Teams International Flight Attendant Relationship Specialty Start Date End Date Kelvin Aguilera DO [address] [place] [address] PCP - General Family Practice 12/19/23 documented as of this encounter
--- OUTSIDE RECORDS SUMMARY | 2024-08-01 08:58 | XMS_ITS | Clinical Summary ---
Author Organization [facility] Address [address] [place] [address] Care Team Providers Care Chute Man Name Role Phone Yash Loza MD Primary [...] Plan of Treatment Not on file Insurance [facility] Care Teams Chute Man Relationship Specialty Start Date End Date Yash Loza MD [address] [place] [address] [place] [address] PCP - General Family Medicine 12/16/20
--- OUTSIDE RECORDS SUMMARY | 2024-08-01 08:58 | XMS_ITS | Referral Summary ---
Author Organization [facility] Address [address] [place] [address] Care Team Providers Care Inweaver Name Role Phone Yash Loza MD Primary [...] Plan of Treatment Not on file Insurance [facility] Care Teams Inweaver Relationship Specialty Start Date End Date Yash Loza MD [address] [place] [address] [place] [address] PCP - General Family Medicine 12/16/20
[2024-08-01 09:02] LABS: Estimated Glomerular Filt Rate 60
== END 2024-08-01 08:35 | disposition home or self-care (01) ==
PROVIDERS: PCP Family Medicine; Visit Provider Internal Medicine Gastroenterology
DX: C18.9 Malignant neoplasm of colon, unspecified (principal); R91.1 Solitary pulmonary nodule; K80.20 Calculus of gallbladder without cholecystitis without obstruction
CPT/HCPCS: 71260; 74177; Q9967

== ENCOUNTER 2024-08-21 08:02 | Outpatient (CLI) | payer OTHER, SELFPAY ==
--- OUTSIDE RECORDS SUMMARY | 2024-08-21 08:16 | XMS_ITS | Clinical Summary ---
Author Organization [facility] (FORMERLY [facility])[3] [employer] [place] Address [address] [address] Care Team Providers Care Maintenance Millwright Name Role Phone Kelvin Aguilera DO Primary Care Provider [phone] Allergies No known active allergies Medications lisinopriL [...] COVID-19 VACCINE - EMERGENCY USE AUTHORIZATION, MRNA, [id number](PF) 30 MCG/0.3 ML IM SUSP 11/11/2020,10/21/2020 INFLUENZA [...] AM CDT Pulse 61 06/21/2023 7:29 AM COMMERCIAL MARKETING SPECIALIST Temperature 36.3 C (97.3 F) 06/21/2023 7:29 AM COMMERCIAL MARKETING SPECIALIST Respiratory Rate 18 06/21/2023 7:29 AM COMMERCIAL MARKETING SPECIALIST Oxygen Saturation 95% 06/21/2023 7:29 AM COMMERCIAL MARKETING SPECIALIST Inhaled Oxygen Concentration - - Weight 128.4 [...] age to complete this topic PNEUMOCOCCAL VACCINE 0-49 YEARS Aged Out No longer eligible based on patient's age to complete this topic Procedures Procedure Name Priority Date/Time Associated Diagnosis Comments HEMOGLOBIN A1C Routine 03/31/2022 7:19 AM CDT Screening for condition from Last 3 Months or Most Recently Relevant to Health Maintenance Results * HEMOGLOBIN A1C (03/31/2022 7:19 AM CDT) HEMOGLOBIN A1C 5.4 <5.7 % of total Hgb [employer] nexa Comment: For the purpose of screening for the presence of diabetes: <5.7% Consistent with the absence of diabetes 5.7-6.4% Consistent with increased risk for diabetes (prediabetes) > or =6.5% Consistent with diabetes This assay result is consistent with a decreased risk of diabetes. Currently, no consensus exists regarding use of hemoglobin A1c for diagnosis of diabetes in children. According to [place] Diabetes Association (ADA) guidelines, hemoglobin A1c <7.0% represents optimal control in non- diabetic patients. Different metrics may apply to specific patient populations. Standards of Medical Care in Diabetes(ADA). ESTIMATED AVERAGE GLUCOSE (MG/DL) 108 mg/dL [facility] ESTIMATED AVERAGE GLUCOSE (MMOL/L) 6.0 mmol/L [facility] Comment: Test Performed at: [facility] [address] [place] [address] Marco Roberto D.O., MPH Blood 03/31/2022 7:19 AM CDT 04/01/2022 8:27 AM CDT Shira Nathalie [employer] LATHE SET UP PERSON CHEMISTRY ORDERABLES F inal Result [facility] [phone] [facility] [address] [id number] from Last 3 Months or Most Recently Relevant to Health Maintenance Insurance * Guarantor: OLD [employer] D (C) Account Type Relation to Patient Date of Phone Billing Address Corporate Employer ATTN: [employer]ERTAD QUIÑON[employer] [address] [address] [place] OPEN ACCESS Care Teams Maintenance Millwright Relationship Specialty Start Date End Date Kelvin Aguilera DO [address] [place] [id number] PCP - General Family Practice 12/19/23
--- OUTSIDE RECORDS SUMMARY | 2024-08-21 08:16 | XMS_ITS | Referral Summary ---
Author Organization [facility] Address [address] [place] [address] Care Team Providers Care Senior Account Manager Name Role Phone Yash Loza MD Primary [...] Plan of Treatment Not on file Insurance [facility] Care Teams Senior Account Manager Relationship Specialty Start Date End Date Yash Loza MD [address] [place] [address] [place] [address] PCP - General Family Medicine 12/16/20
--- OUTSIDE RECORDS SUMMARY | 2024-08-21 08:16 | XMS_ITS | Clinical Summary ---
Author Organization [facility] Address [address] [place] [address] Care Team Providers Care Home Appliance Tech Name Role Phone Yash Loza MD Primary [...] Plan of Treatment Not on file Insurance [facility] Care Teams Home Appliance Tech Relationship Specialty Start Date End Date Yash Loza MD [address] [place] [address] [place] [address] PCP - General Family Medicine 12/16/20
--- NOTE | 2024-08-21 08:54 | ECG_ITS ---
Test Date: 2024-08-21 09:12:10 Measurements Intervals [place] Rate: 40 P: 47 AL: 150 QRS: 30 QRSD: 90 T: 54 QT: 392 QTc: 322 Interpretive Statements SINUS BRADYCARDIA WITH SINUS ARRHYTHMIA WARNING: DATA QUALITY MAY AFFECT INTERPRETATION No previous ECG available for comparison Electronically Signed On 08-21-2024 16:57:05 CDT by Berta Delgado M.D.
[2024-08-21 09:39] LABS: Hematocrit 47.1 % (42.0-52.0); Hemoglobin 15.6 g/dL (14.0-18.0)
== END 2024-08-21 08:03 | disposition home or self-care (01) ==
LOC: ANHSURGERY 08:05
PROVIDERS: Anesthesiology; PCP Family Medicine; Visit Provider Surgery
DX: Z01.818 Encounter for other preprocedural examination (principal); K63.89 Other specified diseases of intestine; I10 Essential (primary) hypertension
CPT/HCPCS: 36415; 85014; 85018; 86850; 86900; 86901; 93005

== ENCOUNTER 2024-08-30 14:14 | Inpatient (IN) | payer OTHER, SELFPAY ==
[2024-08-21 08:14] VITALS: BP 136/90; PULSE 65; RESP 16; TEMP 36.4; O2SAT 97; BMI 35.2
--- NOTE | 2024-08-21 08:34 | PC.NURSE ---
Report to the Outpatient Waiting Room, entrance under the green pavilion located off [facility], at time ___6:00AM____ on date ___08/30/24____. Planned Procedure Time: ___7:30AM .? Time changes happen often and if your time is changed the preop area will call you the afternoon before. - You and your visitor will be asked to self-screen and do not enter if you have any COVID symptoms. Please call surgeon if you need to reschedule. - A mask is optional within the hospital at this time. CLEAR LIQUID DIET ALONG WITH BOWEL PREP DAY BEFORE SURGERY. Patients may have clear liquids (water, carbonated beverages, clear teas, apple juice) until 3 hours prior to surgery (4:30AM) with a maximum of 20 ounces. - No smoking, or chewing tobacco (or any form of nicotine). No chewing gum, candy or mints. Take only the following medications with a SIP of water on the morning of surgery: NONE DO NOT STOP ANY OF YOUR OTHER PRESCRIPTION MEDICATIONS PRIOR TO SURGERY EXCEPT THE FOLLOWING Hold all vitamins and supplements for 3 days per anesthesiologist. Medications to discontinue per physician NONE Date to take last dose Please no make-up, nail yi, hairspray, perfume, deodorant, or body powder the day of surgery.? No jewelry (including any body piercings) or valuables the day of surgery, leave them at home.? Please take a shower or bath the night before, or the morning of, surgery with an antibacterial soap.? Wear comfortable, loose fitting clothing.? - Jewelry must be removed prior to entering the operating room.? Rings and piercings that are not removed may be cut off. - The hospital will not accept responsibility for valuables.? - Please leave all valuables, including medications, at home the day of surgery. If you are going home after surgery, a licensed over the road driver must drive you home.? - NO public transportation without another adult if you receive anesthesia. - We recommend that an adult stay with you for 24 hours following discharge. - We also recommend that you do not drive, make important decision, drink alcoholic beverages, or take any drugs that were not prescribed by your health care provider for at least 24 hours after your discharge time. Follow any additional instructions given to you from your surgeon. BOWEL PREP ENSURE BUNDLE ANTIBIOTICS DAY BEFORE SURGERY HIBICLENS SHOWER NIGHT BEFORE AND MORNING OF SURGERY Telephone instructions given to ___PATIENT and asked if any additional questions and then verbalized understanding. Patient advised to call surgeon office or pre surgery nurse liaison [phone] if any additional questions.
--- NOTE | 2024-08-29 07:27 | WPDURCON ---
Assessment and Plan Assessment and plan (1) Dysplastic colon polyp: Code(s): K63.5 - Polyp of colon Status: Acute Assessment and Plan: Cystoscopy, bilateral ureteral catheterization Urology Consult Note HPI Date Seen: 08/29/24 Requesting Physician: Ruiz Biswas MD Primary Care Provider: Kelvin Aguilera DO Consult Narrative Narrative: Scott Monsalve is a 44 year old male unknown to our practice and without prior history. He's been found to have a dysplastic colon polyp and scheduled for sigmoid colectomy. We're asked to place bilat. ureteral catheters. Review of Systems Review of Systems: All systems reviewed & are unremarkable except as noted in HPI and below PMFSH Past Medical History Medical History (Updated 07/26/24 @ 15:39 by Glenny Khan) Anxiety Abnormal gallbladder ultrasound Hyperbilirubinemia Impingement syndrome, shoulder, left YASMANI (obstructive sleep apnea) Uses CPAP Hypertension Hyperlipidemia Depression Overweight Surgical History Surgical History (Updated 07/26/24 @ 14:16 by Keon Dudley MA) Hx of colonoscopy 2024 History of arthroscopic surgery of shoulder (~10/03/20) History of ear surgery Hole in Right Eardrum . Family History Family History (Updated 07/26/24 @ 14:16 by Keon Dudley MA) Unknown Arthritis Father Hypertension Heart disease Social History Social History Smoking packs per day: 1 Smoking cigarettes per day: 20.0 Years smoked: 10 Smoking pack-years: 10.00 Smoking status: Former smoker Tobacco type: cigarettes Smoking end date: 12/04/17 Additional smoking assessment comments: VAPES THC Alcohol intake: former Alcohol use details: HEAVY DRINKER IN PAST, QUIT 2004 Substance use: current Substance use type: marijuana Other substance usage details: Daily Do You Feel Safe in your Home?: Yes Lack of Transportation: No Lack of Food: Never True Current Housing: I Have Housing Concerned About Future Housing: No Difficulty Paying Gas/Electric Bills: No Difficulty Paying for Meds: No Currently Unemployed: No Education: Associate Degree Living arrangements: with family Additional living arrangements comments: PARENTS Occupation/Education: occupation Additional occupation/education comments: Works at [employer] Gender identity (if verbalized by the patient): Male Spiritual care concerns: No Meds Home Medications and Allergies Home Medications ?Medication ?Instructions ?Recorded ?Confirmed ?Type lisinopril 10 mg tablet 10 mg PO DAILY #90 tabs 01/31/24 08/21/24 Rx rosuvastatin 20 mg tablet See Rx Instructions .Route 07/16/24 08/21/24 Rx .COMPLEX #90 tabs ciprofloxacin HCl 500 mg tablet 500 mg .Route .COMPLEX #1 tablet 07/26/24 08/21/24 Rx metronidazole 500 mg tablet 500 mg .Route .COMPLEX #3 tabs 07/26/24 08/21/24 Rx paroxetine HCl 10 mg tablet 10 mg PO HS 08/21/24 08/21/24 History Allergies Allergy/AdvReac Type Severity Reaction Status Date / Time No Known Allergies Allergy Verified 08/21/24 08:09 Exam Const: General: no acute distress Resp: Effort & Inspection: normal respiratory effort GI: Inspection: non-distended GI Palp: No abdominal tenderness and No Guarding due to palpation present (GI) Auscultation: normal bowel sounds
[2024-08-30] VITALS (13 sets, daily range): BP systolic 100–165; BP diastolic 69–95; PULSE 70–120; RESP 12–20; TEMP 36.2–36.6; O2SAT 94–100; BMI 34.2
--- OUTSIDE RECORDS SUMMARY | 2024-08-30 00:23 | XMS_ITS | Clinical Summary ---
Author Organization [facility] Address [address] [place] [address] Care Team Providers Care Outside Installation Machinist Name Role Phone Yash Loza MD Primary [...] Plan of Treatment Not on file Insurance [facility] HMO/PPO Address: [address] [address] Care Teams Outside Installation Machinist Relationship Specialty Start Date End Date Yash Loza MD [address] [place] [address] [place] [address] PCP - General Family Medicine 12/16/20
--- OUTSIDE RECORDS SUMMARY | 2024-08-30 00:23 | XMS_ITS | Clinical Summary ---
Author Organization [facility] [employer] [place] Address [address] [place] [address] Care Team Providers Care Programmer Business Name Role Phone Kelvin Aguilera DO Primary Care Provider [phone] Allergies No known active allergies Medications lisinopriL [...] COVID-19 VACCINE - EMERGENCY USE AUTHORIZATION, MRNA, [id number](PF) 30 MCG/0.3 ML IM SUSP 11/11/2020,10/21/2020 INFLUENZA [...] AM CDT Pulse 61 06/21/2023 7:29 AM JAVA USER INTERFACE DEVELOPER Temperature 36.3 C (97.3 F) 06/21/2023 7:29 AM JAVA USER INTERFACE DEVELOPER Respiratory Rate 18 06/21/2023 7:29 AM JAVA USER INTERFACE DEVELOPER Oxygen Saturation 95% 06/21/2023 7:29 AM JAVA USER INTERFACE DEVELOPER Inhaled Oxygen Concentration - - Weight 128.4 [...] A1C 5.4 <5.7 % of total Hgb [employer] nexa Comment: For the purpose of screening for the presence of diabetes: <5.7% Consistent with the absence of diabetes 5.7-6.4% Consistent with increased risk for diabetes (prediabetes) > or =6.5% Consistent with diabetes This assay result is consistent with a decreased risk of diabetes. Currently, no consensus exists regarding use of hemoglobin A1c for diagnosis of diabetes in children. According to [place] Diabetes Association (ADA) guidelines, hemoglobin A1c <7.0% represents optimal control in non- diabetic patients. Different metrics may apply to specific patient populations. Standards of Medical Care in Diabetes(ADA). ESTIMATED AVERAGE GLUCOSE (MG/DL) 108 mg/dL [facility] ESTIMATED AVERAGE GLUCOSE (MMOL/L) 6.0 mmol/L [facility] Comment: Test Performed at: [facility] [address] [place] [address] Marco Roberto D.O., MPH Blood 03/31/2022 7:19 AM CDT 04/01/2022 8:27 AM CDT Shira Nathalie Silvio DIET ASSISTANT CHEMISTRY ORDERABLES F inal Result [facility] [phone] [facility] [address] [address] [id number] from Last 3 Months or Most Recently Relevant to Health Maintenance Insurance * Guarantor: OLD WORKFLOW[employer] THRU D (C) Account Type Relation to Patient Date of Phone Billing Address Corporate Employer ATTN: [employer]ERTAD QUIÑONES [address] [address] [place] OPEN ACCESS Care Teams Programmer Business Relationship Specialty Start Date End Date Kelvin Aguilera DO [address] [place] [id number] PCP - General Family Practice 12/19/23
--- OUTSIDE RECORDS SUMMARY | 2024-08-30 00:23 | XMS_ITS | Referral Summary ---
Author Organization [facility] Address [address] [place] [address] Care Team Providers Care Patternmaker Hand Name Role Phone Yash Loza MD Primary [...] Plan of Treatment Not on file Insurance [facility] HMO/PPO Address: [address] [address] Care Teams Patternmaker Hand Relationship Specialty Start Date End Date Yash Loza MD [address] [place] [address] [place] [address] PCP - General Family Medicine 12/16/20
--- NOTE | 2024-08-30 06:16 | WPDHPUPDATE1 ---
History and Physical Update Update Date/Time: 08/30/24 06:16 History and Physical has been reviewed, including an updated exam of the patient. There are NO changes in the patient's condition. Risks, benefits, and alternatives have been discussed and questions answered. Patient agrees to proceed with procedure.
[2024-08-30] MEDS: ALVIMOPAN 12 MG CAPSULE PO ×2 (07:00→21:04)
[2024-08-30] MEDS: ACETAMINOPHEN 500 MG TABLET 1000 MG PO (07:00)
[2024-08-30] MEDS: KETOROLAC 15 MG/ML VIAL (*BKC) IV PUSH (07:01)
--- NOTE | 2024-08-30 07:18 | PM.IMHP ---
H&P: HPI History of Present Illness Date/Time: 08/30/24 07:18 Chief Complaint: Dysplastic sigmoid colon polyp Narrative: Mr. Monsalve presents to the office at the request of Dr. Jeronimo for evaluation. He recently had a positive Cologuard and subsequently underwent colonoscopy on 07/25/2024 which showed multiple polyps; in the descending colon, distal sigmoid colon, and transverse colon, with pathology showing these to be tubular adenomas. There was a polyp in his proximal sigmoid colon which showed superficial sampling of adenomatous epithelium with high-grade dysplasia that was 3.5cm and not amenable to complete endoscopic resection. He has occasional bleeding with BMs, but no pain. Normal BMs without issue. Has family history of colon CA a his maternal uncle but that person developed colon cancer at advanced age. He has not had any other prior abdominal surgery. Review of Systems Review of Systems: The remainder of the review of systems to include constitutional, HEENT, cardiovascular, respiratory, GI, , integumentary, musculoskeletal, endocrine, immunologic, hematologic, psychiatric, and neurologic are all negative except for which is mentioned above in the HPI. [facility] Past Medical History Medical History Anxiety Abnormal gallbladder ultrasound Hyperbilirubinemia Impingement syndrome, shoulder, left YASMANI (obstructive sleep apnea) Uses CPAP Hypertension Hyperlipidemia Depression Overweight Surgical History Surgical History Hx of colonoscopy 2024 History of arthroscopic surgery of shoulder (~10/03/20) History of ear surgery Hole in Right Eardrum . Family History Family History Unknown Arthritis Father Hypertension Heart disease Social History Social History Smoking packs per day: 1 Smoking cigarettes per day: 20.0 Years smoked: 10 Smoking pack-years: 10.00 Smoking status: Former smoker Tobacco type: cigarettes Smoking end date: 12/04/17 Additional smoking assessment comments: VAPES THC Alcohol intake: former Alcohol use details: HEAVY DRINKER IN PAST, QUIT 2004 Substance use: current Substance use type: marijuana Other substance usage details: Daily Do You Feel Safe in your Home?: Yes Lack of Transportation: No Lack of Food: Never True Current Housing: I Have Housing Concerned About Future Housing: No Difficulty Paying Gas/Electric Bills: No Difficulty Paying for Meds: No Currently Unemployed: No Education: Associate Degree Living arrangements: with family Additional living arrangements comments: PARENTS Occupation/Education: occupation Additional occupation/education comments: Works at [employer] Gender identity (if verbalized by the patient): Male Spiritual care concerns: No Meds Home Medications and Allergies Home Medications ?Medication ?Instructions ?Recorded ?Confirmed ?Type lisinopril 10 mg tablet 10 mg PO DAILY #90 tabs 01/31/24 08/30/24 Rx rosuvastatin 20 mg tablet See Rx Instructions .Route 07/16/24 08/30/24 Rx .COMPLEX #90 tabs ciprofloxacin HCl 500 mg tablet 500 mg .Route .COMPLEX #1 tablet 07/26/24 08/30/24 Rx metronidazole 500 mg tablet 500 mg .Route .COMPLEX #3 tabs 07/26/24 08/30/24 Rx paroxetine HCl 10 mg tablet 10 mg PO HS 08/21/24 08/30/24 History Allergies Allergy/AdvReac Type Severity Reaction Status Date / Time No Known Allergies Allergy Verified 08/30/24 06:48 Vital Signs Vital Signs - 24 hr 08/30/24 06:57 Temperature 36.3 C L Pulse Rate 70 Blood Pressure 147/91 H Pulse Oximetry 97 Oxygen Delivery Room Air Exam Const: General: comfortable and no acute distress HENMT: Ears: TM's normal bilaterally Face/Nose/Sinus: Normal nares present Mouth: Yes moist mucous membranes Eyes: General: appearance normal, both eyes and all related structures Sclera: sclerae normal Pupils: Equal, round and reactive pupils present EOM: EOMs intact bilaterally Neck: Neck: supple and no JVD Resp: Effort & Inspection: normal respiratory effort Auscultation: clear to auscultation bilaterally Cardio: Rate: regular rate Rhythm: regular rhythm GI: Other: Soft, nontender, nondistended. Obese. He has a mild 2cm diastasis in the epigastric region. No ventral hernias and no masses . Skin: General skin exam: normal color and no rashes or lesions noted Neuro: General: gait normal Speech: normal speech Motor exam (neuro): 5/5 motor strength present throughout Sensory Exam: normal sensation Extrem: General: normal to inspection Psych: Mental Status: mental status grossly normal Affect: normal affect Assessment and Plan Assessment and plan (1) Dysplastic colon polyp: Code(s): K63.5 - Polyp of colon Status: Acute Assessment and Plan: Prior to the patients office visit, I reviewed the colonoscopy report from Dr. Jeronimo and the pathology results. Finding were discussed in detail with the patient and his mother. Explained given the high risk of this developing into colon CA, I've recommended proceeding with robotic assisted laparoscopic sigmoid resection, possible open to be performed in the OR under general anesthesia with plans for full admission after surgery. Discussed the surgery with the patient in detail including description, risks, benefits, the need for bowel prep and Ensure nutrition drinks, risk for anastomotic leak and need for return for surgery, possible ostomy placement, expected hospital stay after surgery, anticipated recovery, and expected outcome.? Also discussed the need for ureteral stent placement during surgery. All questions answered and he agrees to proceed as discussed.
--- NOTE | 2024-08-30 07:21 | WPDHPUPDATE1 ---
History and Physical Update Update Date/Time: 08/30/24 07:21 History and Physical has been reviewed, including an updated exam of the patient. There are NO changes in the patient's condition. Risks, benefits, and alternatives have been discussed and questions answered. Patient agrees to proceed with procedure.
--- NOTE | 2024-08-30 07:27 | P.PNAN_ITS ---
Anes - Initial Pre Proc Eval Procedure: Operation Date: 08/30/24 07:30 Proposed Procedures p Robotic Assisted Laparoscopic Sigmoid Colon Resection Possible Open - Ruiz Biswas MD s Bilateral Ureteral Stent Placement for Abdominal Surgery - Yash Marvin MD Date/Time: 08/30/24 07:27 Surgeon: Ruiz Biswas MD Pre Op Diagnosis: sigmoid mass Patient Data Age: 44 Gender: M Height: 1.85 m Weight: 117.5 kg Last Vital Signs Temp 97.4 F L 08/30/24 06:57 Pulse 70 08/30/24 06:57 Resp 16 08/21/24 08:14 BP 147/91 H 08/30/24 06:57 Pulse Ox 97 08/30/24 06:57 O2 Del Method Room Air 08/30/24 06:57 Allergies Allergy/AdvReac Type Severity Reaction Status Date / Time No Known Allergies Allergy Verified 08/30/24 06:48 Home Medications ?Medication ?Instructions ?Recorded ?Confirmed ?Type lisinopril 10 mg tablet 10 mg PO DAILY #90 tabs 01/31/24 08/30/24 Rx rosuvastatin 20 mg tablet See Rx Instructions .Route 07/16/24 08/30/24 Rx .COMPLEX #90 tabs ciprofloxacin HCl 500 mg tablet 500 mg .Route .COMPLEX #1 tablet 07/26/24 08/30/24 Rx metronidazole 500 mg tablet 500 mg .Route .COMPLEX #3 tabs 07/26/24 08/30/24 Rx paroxetine HCl 10 mg tablet 10 mg PO HS 08/21/24 08/30/24 History Patient hx anesthesia problems: none Family hx anesthesia problems: none Results Review: All pre-operative results and documents have been reviewed as part of the pre- operative evaluation. [facility] Past Medical History Medical History Anxiety Abnormal gallbladder ultrasound Hyperbilirubinemia Impingement syndrome, shoulder, left YASMANI (obstructive sleep apnea) Uses CPAP Hypertension Hyperlipidemia Depression Overweight Surgical History Surgical History Hx of colonoscopy 2024 History of arthroscopic surgery of shoulder (~10/03/20) History of ear surgery Hole in Right Eardrum . Family History Family History Unknown Arthritis Father Hypertension Heart disease Social History Social History Smoking packs per day: 1 Smoking cigarettes per day: 20.0 Years smoked: 10 Smoking pack-years: 10.00 Smoking status: Former smoker Tobacco type: cigarettes Smoking end date: 12/04/17 Additional smoking assessment comments: VAPES THC Alcohol intake: former Alcohol use details: HEAVY DRINKER IN PAST, QUIT 2004 Substance use: current Substance use type: marijuana Other substance usage details: Daily Do You Feel Safe in your Home?: Yes Lack of Transportation: No Lack of Food: Never True Current Housing: I Have Housing Concerned About Future Housing: No Difficulty Paying Gas/Electric Bills: No Difficulty Paying for Meds: No Currently Unemployed: No Education: Associate Degree Living arrangements: with family Additional living arrangements comments: PARENTS Occupation/Education: occupation Additional occupation/education comments: Works at [employer] Gender identity (if verbalized by the patient): Male Spiritual care concerns: No Anes - Eval Final PreProcedure Day of Procedure 08/30/24 07:27 Patient weight: obese Lungs: normal air movement Airway: Mallampati scale class III and special considerations (L upper incisor w large prev chip/slanted area noted. ) Neurological: alert and oriented Last oral intake: >/= 8 hours ASA classification: III Emergent: no Anesthetic plan: proceed Anesthesia type and monitoring: general ETT and standard monitoring Results Review: All pre-operative results and documents have been reviewed as part of the pre- operative evaluation. HTN, hyperlipidemia, YASMANI mild, on CPAP. Informed Consent: The patient's anesthetic plan and its attendant risks and benefits were discussed with the patient/family/POA. Questions were solicited and answers provided to the satisfaction of the patient/family/POA.
[2024-08-30] MEDS: metroNIDAZOLE 500 MG/ISO 100ML 500 MG/100 ML BAG 100 MG IVPB (07:38)
[2024-08-30] MEDS: ceFAZolin 2 GM/D5W 50 ML 2 GM/50 ML BAG IVPB (07:38)
[2024-08-30] MEDS: LACTATED RINGERS 1,000 ML 30 ML IV CONT ×2 (07:40→12:55)
--- NOTE | 2024-08-30 08:23 | W.PM.PROC2 ---
Procedure Note - Detailed Date of Procedure 08/30/24 Pre-op Diagnosis Sigmoid mass Post-op Diagnosis Same Procedure Performed Cystoscopy, bilateral ureteral catheterization Surgeon Yash Marvin MD Anesthesia General Description of Procedure The patient was brought to the operative suite where he was prepped and draped in a routine sterile fashion while in a dorsal lithotomy position after the uneventful induction of a general anesthetic. Cystoscopy was undertaken with a 21F rigid cystoscope. There were no urethral strictures. The prostatic uretehral estimated lenght was 1.5cm. There was no obstruction of the prostatic urethra with no median lobe enlargement. The bladder itself was endoscopically normal without foreign body or neoplasm. The bladder mucosa was without hyperemia. There was a single orthotopic ureteral orifice bilaterally with clear reflex of urine. 5F whistle-tip catheters were place in each ureter and advanced to the kidneys without difficulty. 3cc of ICG was injected in each ureteral catheter. An 18F Brock catheter was placed and the ureteral catheters were fixed to the Brock catheter with silk ties. The patient tolerated this aspect of the procedure well. Pathology None sent Complications No immediate complications Condition Stable
[2024-08-30] MEDS: BUPivacaine HCL 0.5% PF 30 ML VIAL INFILTRATE (09:15)
[2024-08-30] MEDS: LIDO 1%/EPINEPHRINE 1:100,000 50 ML VIAL 30 ML INFILTRATE (09:16)
[2024-08-30] MEDS: INDOCYANINE GREEN 25 MG VIAL WITH DILUENT 3.75 MG IV PUSH (09:33)
--- NOTE | 2024-08-30 12:59 | P.OPB_ITS ---
Procedure Note - Brief Procedure Note - Brief Date of procedure: 08/30/24 Dysplastic sigmoid polyp Post-op diagnosis: Same Procedure performed: Robotic assisted laparoscopic partial sigmoid resection with [id number] stapled colonic anastomosis Surgeon: Ruiz Biswas MD [employer] Supervisor: Felisha GAUTAM Anesthesia: GETA Findings: Patient had a 3cm proximal sigmoid polyp with a noted proximal and distal to the mass in the proximal sigmoid colon. The patient had a very the sigmoid colon. Due to him having such a redundant sigmoid colon and the polyp being essentially at the junction of the descending and sigmoid colon only a partial sigmoid colectomy was performed. A [id number] stapled anastomosis was performed extracorporeally after resection of the tumor. Implants: None Estimated blood loss (mL): 50 Drains: No Packing: No Pathology: Yes (Segment of sigmoid colon to pathology) Complications: No immediate complications Condition: Stable Disposition: PACU
[2024-08-30] MEDS: fentaNYL CITRATE INJ (*CRX) 100 MCG/2 ML VIAL 25 MCG IV PUSH ×4 (13:03→13:21)
[2024-08-30] MEDS: ONDANSETRON INJ 4 MG/2 ML VIAL IV PUSH (13:17)
[2024-08-30] MEDS: HYDROmorphone HCL INJ (*CRX) 1 MG/ML SYR 0.25 MG IV PUSH ×4 (13:22→13:39)
--- NOTE | 2024-08-30 14:43 | PC.NURSE ---
This patient, Scott Monsalve, was admitted to 3 [facility] Surg Room 322-01. Patient/family oriented to hospital policies and general routines including ID bracelet, bed and alarms, visiting hours, pain management, procedures, bathroom and other care routines, personal items, smoking policy, room service/diet, and visiting hours. Information on how to activate the Rapid Response Team has been discussed. Patient/Family are encouraged to report perceived risks to care and to ask questions if they do not understand what they are told or what they should do.
[2024-08-30] MEDS: MORPHINE SULFATE (*CRX) 4 MG/ML INJ IV PUSH (14:49)
[2024-08-30] MEDS: ceFAZolin 1 GM/NS 50 ML 1 GM/50 ML BAG IVPB (17:18)
[2024-08-30] MEDS: oxyCODONE HCL (*CRX) 5 MG TAB IR PO (17:19)
[2024-08-30] MEDS: LACTATED RINGERS 1,000 ML 130 ML IV CONT (17:19)
--- NOTE | 2024-08-30 19:00 | P.OP_ITS ---
Procedure Note - Detailed Date of Procedure 08/30/24 Pre-op Diagnosis Dysplastic Sigmoid Colonic Polyp Post-op Diagnosis Same Procedure Performed Robotic assisted laparoscopic partial sigmoid colectomy with [id number] stapled colonic anastomosis Surgeon Ruiz Biswas MD Plaster Pattern Caster Felisha Britton [facility] Anesthesia General Indications Patient is a 44-year-old gentleman who had a screening colonoscopy performed. He was found have multiple colon illness polyps. The majority of the polyps were tubular adenomas and were completely removed with the endoscopic procedure. However there was a 3cm polyp in the proximal sigmoid colon which was biopsied initialed grade dysplasia but no invasive or insight to disease. The patient presents now for resection of the plastic polyp in the proximal sigmoid colon with a robotic assisted laparoscopic approach. Findings The patient had an easily identifiable polyp in the area of the junction of the descending left colon and proximal sigmoid colon. The polyp had been tattooed proximal and distal with ink by the endoscopist. There were no adhesions in the pelvis. There was no evidence of invasion of the tumor be on the serosa of the sigmoid colon. No peritoneal masses was seen. After resection the specimen was sent to pathology and the specimen was opened. The initial distal margin was 2.5cm. With this being the case and the suspicion that the tumor was actually an invasive tumor I elected to get at least 3cm of distal margin and so I resected another 1 to 2 cm of sigmoid colon and sent this to pathology for permanent section as additional distal margin. Continuity of the bowel was reestablished with a [id number]-ss-[id number] stapled colocolonic anastomosis. Description of Procedure After informed consent was obtained patient brought to the operating room was placed supine position and then general endotracheal anesthesia was administered. He was then placed in the lithotomy position and Dr. Marvin from Urology came into the operating room then placed ureteral stents for pelvic surgery performed a cystoscopy. 3cc of ICG dye was injected into both ureters at the time of the cystoscopy and placement of the stents. The urology procedure is dictated separately. The patient then had rectal washout with Betadine solution and the abdomen and perineum was then prepped and draped usual sterile fashion. Time-out was then performed correctly identifying the patient as well as procedure to be performed. He was given perioperative IV antibiotics. I entered the abdomen left upper quadrant utilizing a 5mm Optiview port. Once inside the abdomen insufflated to adequate pneumoperitoneum of 15mmHg of CO2. There were no adhesions to obscure my view of the pelvis. The patient was then placed 15? head down in the Trendelenburg position and this was the small bowel to follow-up out of the pelvis. Additional robotic trocar ports to include a 12mm right lower quadrant trocar port and 3 more 8mm the trocar ports were placed across the abdomen. The [email or web address] Lui robot was then brought to the patient's bedside and docked. The robotic arms were then attached robotic ports and then robotic instruments were advanced into the abdomen under direct visualization. I then scrubbed out the procedure to perform the dissection robotically. I 1st started by identifying the area of the polyp. This was easily found as the endoscopies had tattooed the lesion just proximal and distal to the polyp. The patient had a very redundant sigmoid colon. The polyp was situated just at the junction of the descending left colon and the proximal sigmoid colon. With an atraumatic robotic grasper I held the segment of colon up that need to be resected and incised the peritoneum of the mesentery down towards the inferior mesenteric artery. I then made a defect through the mesentery about 5cm proximal to the polyp. A 60mm robotic Endo-JELANI stapler was then used to divide the descending left colon this point. In the pelvis I then identified the ureters bilaterally with firefly as the ureters had been marked with ICG dye through the stents. There was strong fluorescence of bilateral ureters and my dissection of the mesentery to the segment of sigmoid colon that was resected was well away from these visualized ureters. I went distally and made a defect through the mesentery distal to the most distal tattoo. I then utilized the vessel sealer to divide the mesentery between these 2 segments. As the patient had a pretty redundant sigmoid colon I felt that I would be able to exterior lyse the proximal sigmoid colon through a GelPort in a lower abdominal Pfannenstiel incision. I then had the robotic instruments removed from the abdomen and the Lui robot undocked from the patient's bedside. I then scrubbed back into the procedure and made a 7cm transverse Pfannenstiel incision in the lower abdominal wall through the skin. I incised and divided the median Herber a in the midline in a muscle-splitting incision vertically. Once inside the abdomen I open the incision vertically for about 7 8cm in length. A GelPort was then placed into the abdomen to provide access. Once this was done I was in the able to deliver the proximal sigmoid colon up through the hand port and then I divided the sigmoid colon in the midportion distal to the most distal inked portion of the colon. This is done with a JELANI 75 stapler. The specimen was then marked with a suture distal resection margin and sent to pathology. The specimen was opened pathology and on gross examination the polyp appeared to extend into the muscularis of the bowel wall. This was highly suggestive this is likely an invasive adenocarcinoma. The distal stapled margin was 2.5cm. With this being likely a invasive adenocarcinoma I want to get at least 3cm distally and so then through the GelPort with the mid portion of the sigmoid colon exterior lysed I resected another 1 to 2 cm of the sigmoid colon. I made a defect through the mesentery with electrocautery and then used a reload to the GI 75 stapler to divide the sigmoid colon again another 1 to 2 cm of distal margin. The mesentery to the segment was then divided between clamps and tied off with 2-0 silk sutures. This additional distal margin was sent for in formalin to pathology. I then delivered the proximal end of the colon descending left colon up through the GelPort. I had enough proximal and distal colon to perform a extracorporeal stapled [id number]-uw-azwa colocolonic anastomosis. I made sure that the 2 ends of the bowel were not twisted and then removed the corner of the staple line to each end of the bowel with Metzenbaum scissors. A reload to the JELANI 75 stapler was then used to create a ayjm-vt-zaxu stapled anastomosis. The resulting enterotomy in the top anastomosis was then closed utilizing a running 3-0 absorbable V lock suture in the inner mucosal and serosal layer. This is then followed by buttressing with additional interrupted 3-0 silk sutures placed in Lembert fashion. The anastomosis was widely patent. There was no tension on the anastomosis. It was then reduced back into the abdomen through the GelPort. I then reached she had the pneumoperitoneum and had the [employer] robot read docked to the patient's bedside. I then scrubbed out the procedure stat back down the Lui robot to examine the anastomosis in the pelvis. I once again confirmed that there was no twisting of the mesentery or bowel. Under firefly the 2 ends of the bowel at the anastomosis appeared to be well perfused. There is no bleeding. I then had the robotic instruments r emoved from the patient's abdomen and the Lui robot undocked from the patient's bedside. I then scrubbed back in the procedure to close the port sites. All the port sites were then irrigated with sterile saline solution. The extraction GelPort site was also irrigated. That incision was then closed at the fascial level utilizing looped 1. PDS sutures started each of the incision. The and then run to the met in the middle and then the 2 sutures were then tied together. The subcutaneous tissues in the Pfannenstiel incision was then closed utilizing interrupted 3-0 Vicryl sutures. The skin edges were then approximated utilizing a running subcuticular 4-0 Monocryl suture. The 12mm right lower quadrant trocar port fascial defect was closed utilizing 0 Vicryl suture at the fascial level. Skin edges in all the port sites were then approximated utilizing a running subcuticular 4-0 Monocryl suture. The incisions were all then cleaned and skin glue was applied. The patient tolerated the procedure well no complications. All sponges, needles, and instrument counts were correct at the end procedure. EBL was _50__cc. The patient was awakened and taken to recovery in stable and satisfactory condition. At the end the procedure both ureteral stents were removed and the Brock catheter was removed. Both stents appeared to be completely intact and removed in their entirety. Implants None Estimated Blood Loss 50 Drains No Packing No Pathology Yes (Segment of sigmoid colon to pathology) Complications No immediate complications Condition Stable Disposition PACU [facility] Billing Surgery - Charge Forward: Surgery Billing
[2024-08-30] MEDS: IBUPROFEN IV 800 MG/200 ML 800 MG/200 ML BAG 400 MG IVPB (21:02)
[2024-08-30] MEDS: ROSUVASTATIN 20 MG TABLET BY MOUTH (21:04)
[2024-08-30] MEDS: PARoxetine 10 MG TABLET PO (21:04)
[2024-08-30] MEDS: lisinopriL 10 MG TABLET PO (21:04)
[2024-08-31] MEDS: ceFAZolin 1 GM/NS 50 ML 1 GM/50 ML BAG IVPB ×2 (00:24→08:37)
[2024-08-31] MEDS: HYDROcodone/acetaminophen (*CRX) 5-325 MG TABLET 1 TAB PO ×4 (00:28→18:06)
[2024-08-31] MEDS: IBUPROFEN IV 800 MG/200 ML 800 MG/200 ML BAG 400 MG IVPB ×4 (00:56→21:11)
[2024-08-31 04:24] VITALS: BP 101/69; PULSE 104; RESP 16; TEMP 36.3; O2SAT 96
--- NOTE | 2024-08-31 07:19 | PM.PNGS ---
Progress Note: A&P Assessment and Plan (1) Dysplastic colon polyp: Code(s): K63.5 - Polyp of colon Status: Acute Assessment and Plan: Had a rough night with nausea and abdominal pain. Feeling better this morning although still having quite a bit of pain. Continue liquids today and up walking. Repeat labs tomorrow and advance diet as tolerated. Subjective Subjective Date/Time Seen: 08/31/24 07:19 Patient reports: still having pain, voiding w/o difficulty, no flatus, no bowel movement, nausea and afebrile Exam GI: Inspection: non-distended and incision (Dry and intact) GI Palp: Yes Soft to palpation and Yes Tenderness to palpation present (GI) Objective Data Vital Signs Vital Signs: Vital Signs - 24 hr 08/30/24 12:55 08/30/24 13:10 08/30/24 13:25 Temperature 36.2 C L Pulse Rate 93 89 88 Respiratory Rate 16 12 12 Blood Pressure 164/74 H 153/75 H 165/92 H Pulse Oximetry 98 98 99 Oxygen Delivery Simple Face Mask Simple Face Mask Room Air Oxygen Flow Rate 8 8 08/30/24 13:40 08/30/24 13:55 08/30/24 14:07 Temperature Pulse Rate 85 82 80 Respiratory Rate 12 20 16 Blood Pressure 142/95 H 159/89 H 133/84 Pulse Oximetry 94 98 96 Oxygen Delivery Room Air Room Air Room Air Oxygen Flow Rate 08/30/24 14:35 08/30/24 14:50 08/30/24 15:20 Temperature 36.4 C 36.4 C 36.5 C Pulse Rate 80 83 79 Respiratory Rate 17 17 17 Blood Pressure 134/70 143/72 H 136/76 Pulse Oximetry 100 98 95 Oxygen Delivery Oxygen Flow Rate 08/30/24 16:20 08/30/24 20:00 08/30/24 20:24 Temperature 36.4 C 36.2 C L Pulse Rate 76 120 H Respiratory Rate 17 16 Blood Pressure 134/75 100/70 Pulse Oximetry 97 98 Oxygen Delivery Room Air Oxygen Flow Rate 08/30/24 23:54 08/31/24 04:24 Temperature 36.6 C 36.3 C L Pulse Rate 109 H 104 H Respiratory Rate 16 16 Blood Pressure 101/69 101/69 Pulse Oximetry 95 96 Oxygen Delivery Oxygen Flow Rate Intake/Output Intake/Output: Intake & Output 08/28/24 08/29/24 08/30/24 08/31/24 23:59 23:59 23:59 23:59 Intake Total 940 650 Output Total 150 Balance 790 650 Meds/Results Medications: Active Medications Generic Name Dose Route Start Last Admin Trade Name Freq PRN Reason Stop Dose Admin Acetaminophen 1,000 mg 08/30/24 14:14 Acetaminophen 500 Mg Tablet PO Q6H PRN Mild Pain (1-3) or Fever Hydrocodone Bitart/Acetaminophen 1 tab 08/30/24 14:14 08/31/24 07:02 Hydrocodone/Acetaminophen (*Crx) 5-325 Mg Tablet PO 1 tab Q4H PRN Administration Pain Rated 4-6 Alvimopan 12 mg 08/30/24 21:00 08/30/24 21:04 Alvimopan 12 Mg Capsule PO 08/31/24 21:01 12 mg Q12HR DENISSE Administration Enoxaparin Sodium 40 mg 08/30/24 14:14 08/30/24 15:45 Enoxaparin 40 Mg/0.4 Ml Syringe SUB-Q Not Given DAILY DENISSE Ibuprofen 800 mg in 200 mls @ 400 mls/hr 08/30/24 14:14 08/31/24 01:26 Caldolor 800 Mg/200 Ml IVPB Infused Q6H DENISSE Infusion Cefazolin Sodium 1 gm in 50 mls @ 100 mls/hr 08/30/24 16:00 08/31/24 00:54 Ancef 1 Gm/Ns 50 Ml IVPB 08/31/24 08:29 Infused Q8H DENISSE Infusion Lactated Ringer's 1,000 mls @ 130 mls/hr 08/30/24 14:14 08/31/24 05:36 Lr - Lactated Ringers Iv IV CONT Not Given .[id number] DENISSE Lisinopril 10 mg 08/30/24 21:00 08/30/24 21:04 Lisinopril 10 Mg Tablet PO 10 mg HS DENISSE Administration Morphine Sulfate 4 mg 08/30/24 14:14 08/30/24 14:49 Morphine Sulfate (*Crx) 4 Mg/Ml Inj IV PUSH 4 mg Q4H PRN Administration Pain Rated 7-10 Ondansetron HCl 4 mg 08/30/24 14:14 Ondansetron Inj 4 Mg/2 Ml Vial IV PUSH Q6H PRN Nausea And Vomiting Oxycodone HCl 5 mg 08/30/24 14:14 08/30/24 17:19 Oxycodone Hcl (*Crx) 5 Mg Tab Ir PO 5 mg Q4H PRN Administration Pain Rated 7-10 Pantoprazole Sodium 40 mg 08/31/24 09:00 Pantoprazole 40 Mg Tablet PO QAM DENISSE Paroxetine HCl 10 mg 08/30/24 21:00 08/30/24 21:04 Paroxetine 10 Mg Tablet PO 10 mg HS DENISSE Administration Rosuvastatin Calcium 20 mg 08/30/24 21:00 08/30/24 21:04 Rosuvastatin 20 Mg Tablet BY MOUTH 20 mg HS DENISSE Administration
--- NOTE | 2024-08-31 07:57 | WPDANESPN ---
Anes - Prog Note Post-Op Date/Time: 08/31/24 07:57 Cardiovascular status: normal Respiratory status: normal Airway patency: baseline Mental status: baseline Post-Op hydration status: normal Vital Signs: Last Vital Signs Temp 97.4 F L 08/31/24 04:24 Pulse 104 H 08/31/24 04:24 Resp 16 08/31/24 04:24 BP 101/69 08/31/24 04:24 Pulse Ox 96 08/31/24 04:24 O2 Del Method Room Air 08/30/24 20:00 O2 Flow Rate 8 08/30/24 13:10 Pain Score (VAS): 0/10 I/O: Intake & Output 08/30/24 08/30/24 08/31/24 15:59 23:59 07:59 Intake Total 450 490 650 Output Total 150 Balance 450 340 650 Post-procedural complaints: none Patient Feedback: Patient satisfied with anesthetic care.
[2024-08-31 08:24] VITALS: BP 125/66; PULSE 99; RESP 18; TEMP 35.9; O2SAT 98
[2024-08-31 08:31] LABS: Basophils Percent Auto 0.1 % (0.2-1.2); Hematocrit 43.5 % (42.0-52.0); Hemoglobin 14.3 g/dL (14.0-18.0); Immature Granulocyte Absolute 0.06 K/mm3 (0.00-0.031); Immature Granulocyte Percent A 0.4 % (0-0.5); Lymphocytes Absolute Auto 2.68 K/mm3 (0.9-3.2); Lymphocytes Percent Auto 16.3 % (18.3-44.2); Mean Corpuscular HGB Conc 32.9 g/dl (32-36); Mean Corpuscular Hemoglobin 28.3 pg (26-34); Mean Platelet Volume 9.7 fl (7.4-10.4); Monocytes Absolute Auto 1.5 K/mm3 (0.1-0.6); Monocytes Percent Auto 8.8 % (2.6-8.5); Neutrophils Absolute Auto 12.3 K/mm3 (1.3-6.7); Neutrophils Percent Auto 74.4 % (45.5-73.1); Platelet Count Result 265 k/mm3 (150-375); Red Blood Count 5.06 M/mm3 (4.6-6.20); White Blood Count 16.5 K/mm3 (4.5-10.0)
[2024-08-31] MEDS: ALVIMOPAN 12 MG CAPSULE PO ×2 (08:38→21:11)
[2024-08-31] MEDS: PANTOPRAZOLE 40 MG TABLET PO (08:38)
[2024-08-31 08:40] LABS: Alanine Aminotransferase 32 U/L (6-50); Albumin Level 4.2 g/dL (3.5-5.1); Alkaline Phosphatase 57 U/L (38-126); Anion Gap 10 mmol/L (4-12); Aspartate Amino Transferase 26 U/L (17-59); Bilirubin,Total 2.2 mg/dL (0.2-1.3); Blood Urea Nitrogen 11 mg/dL (9-20); Calcium 9.3 mg/dL (8.4-10.2); Carbon Dioxide 24 mmol/L (22-30); Chloride 102 mmol/L (98-107); Estimated CRCL calculation 123 ml/min; Estimated Glomerular Filt Rate > 60; Glucose 107 mg/dL (65-110); Potassium 4.1 mmol/L (3.4-5.0); Sodium 136 mmol/L (137-145)
[2024-08-31] MEDS: ENOXAPARIN 40 MG/0.4 ML SYRINGE SUB-Q (08:41)
[2024-08-31] MEDS: LACTATED RINGERS 1,000 ML 100 ML IV CONT ×2 (08:41→18:38)
[2024-08-31 12:24] VITALS: BP 137/77; PULSE 86; RESP 18; TEMP 35.9; O2SAT 98
[2024-08-31 16:24] VITALS: BP 124/76; PULSE 96; RESP 16; TEMP 36.3; O2SAT 95
[2024-08-31 21:00] VITALS: BP 125/89; PULSE 83; RESP 16; TEMP 36.4; O2SAT 98
[2024-08-31] MEDS: ROSUVASTATIN 20 MG TABLET BY MOUTH (21:11)
[2024-08-31] MEDS: PARoxetine 10 MG TABLET PO (21:11)
[2024-08-31] MEDS: lisinopriL 10 MG TABLET PO (21:11)
[2024-08-31] MEDS: oxyCODONE HCL (*CRX) 5 MG TAB IR PO (21:15)
[2024-09-01 01:45] VITALS: PULSE 88; O2SAT 95
[2024-09-01] MEDS: oxyCODONE HCL (*CRX) 5 MG TAB IR PO (02:30)
[2024-09-01] MEDS: IBUPROFEN IV 800 MG/200 ML 800 MG/200 ML BAG 400 MG IVPB ×3 (04:01→13:25)
[2024-09-01] MEDS: LACTATED RINGERS 1,000 ML 100 ML IV CONT (05:08)
[2024-09-01 05:35] VITALS: BP 121/91; PULSE 85; RESP 16; TEMP 36.6; O2SAT 99
[2024-09-01 06:45] LABS: Hematocrit 43.8 % (42.0-52.0); Hemoglobin 14.2 g/dL (14.0-18.0); Mean Corpuscular HGB Conc 32.4 g/dl (32-36); Mean Corpuscular Hemoglobin 28.5 pg (26-34); Platelet Count Result 253 k/mm3 (150-375); Red Blood Count 4.98 M/mm3 (4.6-6.20); White Blood Count 11.9 K/mm3 (4.5-10.0)
[2024-09-01] MEDS: MORPHINE SULFATE (*CRX) 4 MG/ML INJ IV PUSH (06:48)
[2024-09-01 06:55] LABS: Anion Gap 9 mmol/L (4-12); Blood Urea Nitrogen 10 mg/dL (9-20); Calcium 9.3 mg/dL (8.4-10.2); Carbon Dioxide 31 mmol/L (22-30); Chloride 100 mmol/L (98-107); Estimated CRCL calculation 117 ml/min; Estimated Glomerular Filt Rate > 60; Glucose 102 mg/dL (65-110); Potassium 3.8 mmol/L (3.4-5.0); Sodium 140 mmol/L (137-145)
[2024-09-01] MEDS: PANTOPRAZOLE 40 MG TABLET PO (08:49)
[2024-09-01] MEDS: HYDROcodone/acetaminophen (*CRX) 5-325 MG TABLET 1 TAB PO ×4 (09:58→22:29)
[2024-09-01] MEDS: ENOXAPARIN 40 MG/0.4 ML SYRINGE SUB-Q (12:26)
--- NOTE | 2024-09-01 12:35 | PM.PNGS ---
Progress Note: A&P Assessment and Plan (1) Dysplastic colon polyp: Code(s): K63.5 - Polyp of colon Status: Acute Assessment and Plan: Doing well postop day 2. Will advance to low-fiber diet. Increase ambulation. Recheck labs and exam again tomorrow. Probably home tomorrow. (2) YASMANI (obstructive sleep apnea): Code(s): G47.33 - Obstructive sleep apnea (adult) (pediatric) Status: Acute Assessment and Plan: On home CPAP settings Subjective Subjective Date/Time Seen: 09/01/24 12:35 Post Op day: 2 Patient reports: feels better, pain is less, voiding w/o difficulty, flatus, no bowel movement and afebrile Exam GI: Inspection: incision (Incisions dry, healing, looked good) GI Palp: Yes Soft to palpation and Yes Tenderness to palpation present (GI) Auscultation: normal bowel sounds Objective Data Vital Signs Vital Signs: Vital Signs - 24 hr 08/31/24 16:24 08/31/24 21:00 09/01/24 01:45 Temperature 36.3 C L 36.4 C Pulse Rate 96 83 88 Respiratory Rate 16 16 Blood Pressure 124/76 125/89 Pulse Oximetry 95 98 95 09/01/24 05:35 Temperature 36.6 C Pulse Rate 85 Respiratory Rate 16 Blood Pressure 121/91 H Pulse Oximetry 99 Intake/Output Intake/Output: Intake & Output 08/29/24 08/30/24 08/31/24 09/01/24 23:59 23:59 23:59 23:59 Intake Total 940 4555 1820 Output Total 150 Balance 790 4555 1820 Meds/Results Medications: Active Medications Generic Name Dose Route Start Last Admin Trade Name Freq PRN Reason Stop Dose Admin Acetaminophen 1,000 mg 08/30/24 14:14 Acetaminophen 500 Mg Tablet PO Q6H PRN Mild Pain (1-3) or Fever Hydrocodone Bitart/Acetaminophen 1 tab 08/30/24 14:14 09/01/24 09:58 Hydrocodone/Acetaminophen (*Crx) 5-325 Mg Tablet PO 1 tab Q4H PRN Administration Pain Rated 4-6 Enoxaparin Sodium 40 mg 08/30/24 14:14 09/01/24 12:26 Enoxaparin 40 Mg/0.4 Ml Syringe SUB-Q 40 mg DAILY DENISSE Administration Lisinopril 10 mg 08/30/24 21:00 08/31/24 21:11 Lisinopril 10 Mg Tablet PO 10 mg HS DENISSE Administration Morphine Sulfate 4 mg 08/30/24 14:14 09/01/24 06:48 Morphine Sulfate (*Crx) 4 Mg/Ml Inj IV PUSH 4 mg Q4H PRN Administration Pain Rated 7-10 Ondansetron HCl 4 mg 08/30/24 14:14 Ondansetron Inj 4 Mg/2 Ml Vial IV PUSH Q6H PRN Nausea And Vomiting Oxycodone HCl 5 mg 08/30/24 14:14 09/01/24 02:30 Oxycodone Hcl (*Crx) 5 Mg Tab Ir PO 5 mg Q4H PRN Administration Pain Rated 7-10 Pantoprazole Sodium 40 mg 08/31/24 09:00 09/01/24 08:49 Pantoprazole 40 Mg Tablet PO 40 mg QAM DENISSE Administration Paroxetine HCl 10 mg 08/30/24 21:00 08/31/24 21:11 Paroxetine 10 Mg Tablet PO 10 mg HS DENISSE Administration Rosuvastatin Calcium 20 mg 08/30/24 21:00 08/31/24 21:11 Rosuvastatin 20 Mg Tablet BY MOUTH 20 mg HS DENISSE Administration Labs Labs: Laboratory Results - last 24 hr 09/01/24 06:16 WBC 11.9 H RBC 4.98 Hgb 14.2 Hct 43.8 MCV 88.0 MCH 28.5 MCHC 32.4 RDW 13.0 Plt Count 253 MPV 10.0 Sodium 140 Potassium 3.8 Chloride 100 Carbon Dioxide 31 H Anion Gap 9 BUN 10 Creatinine 0.94 Estim Creat Clear Calc 117 Estimated GFR > 60 Glucose 102 Calcium 9.3
[2024-09-01 14:00] VITALS: BP 123/83; PULSE 66; RESP 18; TEMP 36.4; O2SAT 100
[2024-09-01] MEDS: lisinopriL 10 MG TABLET PO (20:17)
[2024-09-01] MEDS: PARoxetine 10 MG TABLET PO (20:17)
[2024-09-01] MEDS: ROSUVASTATIN 20 MG TABLET BY MOUTH (20:17)
[2024-09-01 21:00] VITALS: BP 132/78; PULSE 65; RESP 16; TEMP 36.7; O2SAT 97
[2024-09-01 22:51] VITALS: PULSE 80; O2SAT 95
[2024-09-02] MEDS: HYDROcodone/acetaminophen (*CRX) 5-325 MG TABLET 1 TAB PO (03:49)
[2024-09-02 05:30] VITALS: BP 148/90; PULSE 67; RESP 18; TEMP 36.3; O2SAT 99
[2024-09-02 06:54] LABS: Hemoglobin 13.4 g/dL (14.0-18.0); Mean Corpuscular HGB Conc 32.7 g/dl (32-36); Mean Corpuscular Hemoglobin 28.4 pg (26-34); Mean Corpuscular Volume 86.9 fl (80-100); Mean Platelet Volume 10.1 fl (7.4-10.4); Platelet Count Result 234 k/mm3 (150-375); Red Blood Count 4.72 M/mm3 (4.6-6.20); Red Cell Distribution Width 12.8 % (11.5-14.5); White Blood Count 9.1 K/mm3 (4.5-10.0)
[2024-09-02 07:08] LABS: Anion Gap 8 mmol/L (4-12); Blood Urea Nitrogen 10 mg/dL (9-20); Calcium 9.3 mg/dL (8.4-10.2); Carbon Dioxide 29 mmol/L (22-30); Chloride 101 mmol/L (98-107); Estimated CRCL calculation 117 ml/min; Estimated Glomerular Filt Rate > 60; Glucose 95 mg/dL (65-110); Potassium 4.1 mmol/L (3.4-5.0); Sodium 138 mmol/L (137-145)
[2024-09-02 07:50] VITALS: PULSE 67; RESP 18; O2SAT 99
[2024-09-02] MEDS: ACETAMINOPHEN 500 MG TABLET 1000 MG PO (08:47)
[2024-09-02] MEDS: PANTOPRAZOLE 40 MG TABLET PO (08:48)
--- NOTE | 2024-09-02 11:15 | P.DS_ITS ---
DS: Admitting Diagnosis Discharge Date 09/02/2024 Admitting Diagnosis * Dysplastic sigmoid colon polyp * Obstructive sleep apnea on CPAP * Hypertension DS: Discharge Diagnosis Discharge Diagnosis (1) Dysplastic colon polyp: Code(s): K63.5 - Polyp of colon Status: Chronic (2) YASMANI (obstructive sleep apnea): Code(s): G47.33 - Obstructive sleep apnea (adult) (pediatric) Status: Chronic (3) Hypertension: Qualifiers: Hypertension type: primary hypertension Qualified Code(s): I10 - Essential (primary) hypertension Code(s): I10 - Essential (primary) hypertension Status: Chronic DS: Summary Hospital Course Hospital Course: Patient is a 44-year-old man who had a positive Cologuard test. He saw Dr. Kandace ospina for colonoscopy and was found to have multiple polyps. There was a 3.5 cm dysplastic polyp in the proximal sigmoid colon that could not be removed colonoscopically. Patient saw Dr. Biswas in consultation. Discussion regarding surgery was carried out and planned. Patient underwent a home bowel preparation and was taken to surgery on 08/30/2024. He underwent robotic assisted laparoscopic sigmoidectomy with side to side colonic anastomosis. Under anesthesia but just prior to the operation, bilateral ureteral stents were placed by Dr. Marvin. Postoperatively, the patient did well. He had some bowel movements the day after surgery. He initially was requiring intravenous analgesics for pain and was not able to ambulate independently. This improved and his diet was slowly advanced to regular. Pathology is pending at the time of this dictation. On postop day 3., he was comfortable on oral analgesics and needing them infrequently. He was ambulating independently and tolerating solid food. He is discharged in good condition on postop day 3. Status at Discharge Functional status at discharge: independent ambulation Overall status at discharge: patient is progressing back to baseline Time Spent with Patient Time attestation: Total time spent providing and/or coordinating discharge services: Time spent: Less than 30 minutes DS: Data Data Completed and Pending Pending studies at discharge: Pending at discharge 08/30/24 11:05 Surgical [PTH] Routine Surgical [PTH] Routine Labs on day of discharge: Labs from last 24 hours 09/02/24 06:26 WBC 9.1 RBC 4.72 Hgb 13.4 L Hct 41.0 L MCV 86.9 MCH 28.4 MCHC 32.7 RDW 12.8 Plt Count 234 MPV 10.1 Sodium 138 Potassium 4.1 Chloride 101 Carbon Dioxide 29 Anion Gap 8 BUN 10 Creatinine 0.94 Estim Creat Clear Calc 117 Estimated GFR > 60 Glucose 95 Calcium 9.3 Discharge Plan Discharge Attending physician on discharge: Ruiz Biswas Consulting providers: Yash Marvin Discharging Clinician: Demarcus Navarro Anticipated Discharge Date/Time: 09/02/24 11:23 Patient Disposition: Home, Self-Care Activity: may shower, no straining and as tolerated Diet: regular Wound Care Instructions: incision open to air Discharge Instructions: * Ambulate 3-4 x per day and as tolerated. * No lifting over 15-20lbs. * May bathe or shower. * Stairs are OK. * May drive a car in 3 days. Patient Instructions: Antibiotic Form Patient Language: Serbian Stand Alone Forms: General Discharge Information Follow-up/Referrals: Ruiz Biswas MD [Physician] - 2 Weeks (Call to make appointment if you do not already have a follow-up appointment) Discharge Medications: New oxycodone-acetaminophen [Percocet] 5-325 mg tablet 0.5 - 1 tablet PO Q4H PRN (Reason: pain) Qty: 12 0RF Continued paroxetine HCl 10 mg tablet 10 mg PO HS lisinopril 10 mg tablet 10 mg PO DAILY Qty: 90 1RF Patient Comments: HS rosuvastatin 20 mg tablet See Rx Instructions .ROUTE .COMPLEX Qty: 90 3RF Dose Instruction: TAKE 1 TABLET DAILY Patient Comments: HS Rx Instructions: TAKE 1 TABLET DAILY Discontinued ciprofloxacin HCl 500 mg tablet 500 mg .ROUTE .COMPLEX Qty: 1 0RF Rx Instructions: 500 mg Take 1 tablet by mouth at 2:00pm the day before surgery.; metronidazole 500 mg tablet 500 mg .ROUTE .COMPLEX Qty: 3 0RF Rx Instructions: 500 mg Take 1 tablet by mouth at 1:00pm, 2:00pm, and 11:00pm the day before surgery.; Date of admission: 08/30/24 14:14 Primary Care Provider: Kelvin Aguilera Admitting Provider: Ruiz Biswas Attending physician on admission: Ruiz Biswas Condition: Improved
[2024-09-02 11:42] LABS: Glucose Point of Care 86 mg/dl (65-105)
== END 2024-09-02 11:45 | disposition home or self-care (01) | DRG 331 ==
LOC: ANH3MEDSUR 14:27
PROVIDERS: Urology; Admitting Provider Surgery; PCP Family Medicine; Visit Provider Surgery
PROC: 0DBN4ZZ Excision of Sigmoid Colon, Percutaneous Endoscopic Approach (ICD-10-PCS; principal; 2024-08-30 07:30)
PROC: 0TJB8ZZ Inspection of Bladder, Via Natural or Artificial Opening Endoscopic (ICD-10-PCS; 2024-08-30 07:30)
DX: C18.7 Malignant neoplasm of sigmoid colon (principal); G47.33 Obstructive sleep apnea (adult) (pediatric); I10 Essential (primary) hypertension; E78.5 Hyperlipidemia, unspecified; Z87.891 Personal history of nicotine dependence
CPT/HCPCS: 36415; 80048; 80053; 82948; 85025; 85027; 88307; 88309; A9270; C1729; C1758; C1769; J0690; J1100; J1171; J1650; J1741; J1836; J1885; J2003; J2004; J2250; J2270; J2405; J2704; J3010; J7030; J7120

== ENCOUNTER 2024-09-12 15:33 | Outpatient (CLI) | payer OTHER, SELFPAY ==
[2024-09-12 15:44] LABS: Basophils Absolute Auto 0.1 K/mm3 (0.0-0.1); Basophils Percent Auto 0.4 % (0.2-1.2); Eosinophils Absolute Auto 0.1 K/mm3 (0-0.3); Eosinophils Percent Auto 0.9 % (0-4.4); Hematocrit 45.6 % (42.0-52.0); Hemoglobin 15.3 g/dL (14.0-18.0); Immature Granulocyte Absolute 0.07 K/mm3 (0.00-0.031); Immature Granulocyte Percent A 0.5 % (0-0.5); Lymphocytes Absolute Auto 3.07 K/mm3 (0.9-3.2); Lymphocytes Percent Auto 22.4 % (18.3-44.2); Mean Corpuscular HGB Conc 33.6 g/dl (32-36); Mean Corpuscular Hemoglobin 28.5 pg (26-34); Mean Corpuscular Volume 84.9 fl (80-100); Mean Platelet Volume 9.8 fl (7.4-10.4); Monocytes Absolute Auto 0.9 K/mm3 (0.1-0.6); Monocytes Percent Auto 6.2 % (2.6-8.5); Neutrophils Absolute Auto 9.6 K/mm3 (1.3-6.7); Neutrophils Percent Auto 69.6 % (45.5-73.1); Platelet Count Result 391 k/mm3 (150-375); Red Blood Count 5.37 M/mm3 (4.6-6.20); Red Cell Distribution Width 12.8 % (11.5-14.5); White Blood Count 13.7 K/mm3 (4.5-10.0)
--- OUTSIDE RECORDS SUMMARY | 2024-09-12 16:50 | XMS_ITS | Encounter Summary ---
Author Organization [facility] Address [address] [place] [address] Care Team Providers Care Regulatory Assistant Name Role Phone Kelvin Aguilera DO Primary Care Provider [phone] Reason for Referral * PET Scan (Routine) - Pending Review Specialty Diagnoses / Procedures Referred By Mena t Referred To Contact Diagnoses Malignant neoplasm of colon, unspecified part of colon (CMS/HCC) Procedures PET TUMOR OR INFECTION IMG W CT SKB Dimitri Fall MD [address] [place] [address] Phone: tel: fax: [place] [phone] Referral ID Status Reason Start Date Expiration Date Visits Requested Visits Authorized [id number] Pending Review [facility] CTS 09/12/2024 10/13/2025 1 1 Reason for Visit * Reason Comments Cancer Establish Care Encounter Details Date Type Department Care Team (Late st Contact Info) Description 09/12/2024 3:00 PM CDT Office Visit [facility] [address] [facility] [facility] [address] [place] [address] Dimitri Stiles MD [address] [place] [address] Malignant neoplasm of colon, unspecified part of colon (CMS/HCC) (Primary Dx) Social History Tobacco Use Types Packs/Day Years [...] on file documented as of this encounter Last Filed Vital Signs Vital Sign Reading Time Taken Comments Blood Pressure 142/95 09/12/2024 2:36 PM CDT Pulse 74 09/12/2024 2:31 PM CDT Temperature 35.9 C (96.7 F) 09/12/2024 2:31 PM CDT Respiratory Rate 17 09/12/2024 2:31 PM CDT Oxygen Saturation 97% 09/12/2024 2:3 1 PM CDT Inhaled Oxygen Concentration - - Weight 115.4 kg (254 lb 6.4 oz) 09/12/2024 2:31 PM CDT New patient weight for us Height 185.4 cm (6' 1 ) 09/12/2024 2:31 PM CDT Body Mass Index 33.56 09/12/2024 2:31 PM CDT documented in this encounter Progress Notes * Dimitri Stiles MD - 09/12/2024 4:11 PM CDT Hematology-oncology consult Note Requesting Physician Ruiz Biswas MD Primary Care Physician Kelvin Aguilera DO Problem list Patient Active Problem List Diagnosis Code Hyperlipidemia E78.5 Anxiety state F41.1 HTN (hypertension), benign I10 Environmental and seasonal allergies J30.89 Vitamin D deficiency E55.9 Elevated bilirubin R17 YASMANI on CPAP G47.33 Generalized anxiety disorder F41.1 Previous TREATMENT ? Measurable Disease ? Reason for Visit Scott Monsalve is a 44 y.o. male who was referred for consultation for colon cancer. History of present illness This is a 44-year-old slightly obese male with history of hypertension, hyperlipidemia and anxiety diagnosed with colon cancer after having a positive Cologuard test. He had occasional bright red blood from the stool. He underwent colonoscopy on July 15, 2024 that showed multiple polyps in the descending colon with some high-grade dysplasia. Patient had CT scan chest abdomen pelvis done on August 01, 2024 that showed 1.2 cm right lower lobe lung nodule along with focal wall thickening of the mid sigmoid colon suspicious for malignancy. Patient had robotic partial sigmoid colectomy done on August 30, 2024. Pathology from sigmoid colectomy showed all 19 lymph node negative for malignancy with T3 disease. He is slowly recovering well from the surgery. Patient denies any personal history of malignancy. He quit smoking in 2006 after smoking 10 to 15 years heavily. There is a family history of colon cancer in uncle. He denies any other new complaints. Past Medical History Past Medical History: Diagnosis Date HTN (hypertension) Hyperlipidemia Surgical History Past Surgical History: Procedure Laterality Date HX COLON SURGERY 08/30/2024 HX SHOULDER SURGERY Left 10/03/2020 TYMPANOPLASTY Medications Current Outpatient Medications Medication Sig Dispense Refill rosuvastatin (CRESTOR) 20 mg tablet take 1 tablet daily 90 Tablet 3 PARoxetine HCl (PAXIL) 10 mg tablet take 1 tablet daily 90 Tablet 3 lisinopriL (PRINIVIL) 10 mg tablet Take 1 Tablet (10 mg) by mouth daily. 90 Tablet 1 No current facility-administered medications for this visit. Allergies No Known Allergies Immunizations: Immunization History Administered Date(s) Administered (ADACEL/BOOSTRIX)(10 YR UP) TDAP VACCINE, 0.5ML, IM 05/18/2019 (PFIZER)(12 YR UP) COVID-19 VACCINE - EMERGENCY USE AUTHORIZATION, MRNA, [id number](PF) 30 MCG/0.3 MLIM SUSP 10/21/2020, 11/11/2020 INFLUENZA VACCINE QUADRIVALENT 6 MOS UP IM 03/07/2019 INFLUENZA VACCINE QUADRIVALENT 6 MOS UP PF IM 03/03/2020, 03/25/2021, 03/17/2023 INFLUENZA VACCINE TRIVALENT SPLIT VIRUS, (6 MOS UP), 0.5ML (PF), IM 03/14/2024 Family History Family History Problem Relation Name Age of Onset Heart Disease Father Hypertension Father Healthy Mother No Known Problems Sister Social History Social History Tobacco Use Smoking status: Former Smokeless tobacco: Never Substance Use Topics Alcohol use: Yes Alcohol/week: 3.0 standard drinks of alcohol Types: 3 Cans of beer per week Review of Systems Constitutional: Patient did not mention fever; no night sweats; no anorexia; no weight loss; no fatique NEENT: Patient did not mention headache; no change in vision; no change in hearing; no sore throat;no dysphagia Respiratory: Patient did not mention shortness of breath; no pleuritic chest pain; no cough; no hemoptysis Cardiac: Patient did not mention cardiac-like chest pain; no palpitations; no orthopnea; no PND; noDOE GI: Patient did not mention abdominal pain; no nausea; no vomiting; no diarrhea; no hematochezia; no melena : Patient did not mention dysuria; no frequency; no hesitancy; no hematuria EPIDEMIOLOGY INVESTIGATOR: Musculosketetal: Patient did not mention bone pain; no arthralgia; no joint swelling; no myalgia; Skin: Patient did not mention pruritis; no rash; no petechiae; no ecchymoses Endocrine: Patient did not mention polydipsia; no polyuria; no unusual weight gain Neuro: Patient did not mention headache; no change in vision; no sensory changes; no muscle weakness; no confusion; no seizures Psych: Patient did not mention anxiety; no depression; Physical Exam Vitals: As per nursing note Constitutional: Well developed, well nourished, no acute distress, non-toxic appearance Teeth and gum. No signs of infection or swelling. Eyes: PERRL, conjunctiva normal HEENT: Atraumatic, external ears normal, nose normal, oropharynx moist, no pharyngeal exudates. no sinus tenderness Neck- normal range of motion, no tenderness, supple Respiratory: No respiratory distress, normal breath sounds, no rales, no wheezing Cardiovascular: Normal rate, normal rhythm, no murmurs, no gallops, no rubs GI: Soft, nondistended, normal bowel sounds, nontender, no splenomegaly, no hepatomegaly, no mass, no rebound, no guarding : No costovertebral angle tenderness Musculoskeletal: No edema, no tenderness, no deformities. Back- no tenderness Integument: Well hydrated, no rash, Digits and nails inspection normal Lymphatic: No lymphadenopathy noted Neurologic: Alert & oriented x 3, CN 2-12 normal, normal motor function, normal sensory function, no focal deficits noted Psychiatric: Speech and behavior appropriate ? labs No results found for this or any previous visit (from the past 24 hours). Pathology ? Imaging & Other Studies Performance Status? Assessment / Plan: ? 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 Pathology showed no evidence of lymphovascular invasion, negative perineural invasion and tumor budding score low with all margins negative. 19 lymph node examined and all came back negative for malignancy. Microsatellite instability results not available. CT chest abdomen pelvis done on August 01 showed 3.1 cm thyroid nodule, 1.2 cm right lower lobe lung nodule and 3 mm left lower lobe lung nodule and 3 mm right middle lobe nodule consistent with old granulomatous disease. Focal wall thickening of the sigmoid colon. I will order PET scan while waiting for the MSI testing results. Based on the PET scan we will decide about biopsy of right lower lobe lung nodule. Based on the MSI testing we will discuss adjuvant chemotherapy for stage II colon cancer which seems to be low risk based on the risk profile. I will also check CEA level today. Anemia. I will check CBC and CMP along with iron studies. Hyperlipidemia. He is on Crestor. Hypertension. He is on lisinopril. Anxiety/depression. He is on Paxil. Thank you very much for allowing me to participate in Scott Monsalve's evaluation and management. Please feel free to contact if I can be of any further assistance in your patient???s care requiring hematology or oncology evaluation. Sincerely, ? ? Dimitri Stiles M.D. cell TOBACCO COUNSELING He is not a tobacco/nicotine user. Dimitri Stiles MD ,09/12/2024 4:11 PM ? Total time spent 60 minutes, two third of the total time spent counseling patient [id number]. CC:?Requesting Physician Ruiz Biswas MD Primary Care Physician Kelvin Aguilera, documented in this encounter Plan of Treatment Upcoming Encounters Date Type Department Care Team (Late st Contact Info) Description 10/11/2024 11:00 AM CDT Office Visit [facility] Oncology and Hematology - [place] [address] [place] [address] Dimitri Stiles MD [address] [facility] [facility] [address] [place] [address] Scheduled Orders Name Type Priority Associated Diagnoses Orde r Schedule CBC WITH DIFFERENTIAL Lab Stat Malignant neoplasm of colon, unspecified part of colon (CMS/HCC) Expected: 09/12/2024, Expires: 09/12/2025 COMPREHENSIVE METABOLIC PANEL Lab Stat Malignant neoplasm of colon, unspecified part of colon (CMS/HCC) Expected: 09/12/2024, Expires: 09/12/2025 CEA Lab Routine Malignant neoplasm of colon, unspecified part of colon (CMS/HCC) Expected: 09/12/2024, Expires: 09/12/2025 PET TUMOR OR INFECTION IMG W CT SKB [facility] Imaging Routine Malignant neoplasm of colon, unspecified part of colon (CMS/HCC) 1 Occurrences starting 09/12/2024 until 09/12/2025 documented as of this encounter Visit Diagnoses Diagnosis Malignant neoplasm of colon, unspecified part of colon (CMS/HCC)- Primary documented in this encounter Care Teams Regulatory Assistant Relationship Specialty Start Date End Date Kelvin Aguilera DO [address] [place] [address] PCP - General Family Practice 12/19/23 documented as of this encounter
--- OUTSIDE RECORDS SUMMARY | 2024-09-12 16:50 | XMS_ITS | Referral Summary ---
Author Organization [facility] Address [address] [place] [address] Care Team Providers Care Mitigation Supervisor Name Role Phone Yash Loza MD Primary [...] Plan of Treatment Not on file Insurance [facility] Care Teams Mitigation Supervisor Relationship Specialty Start Date End Date Yash Loza MD [address] [place] [address] [place] [address] PCP - General Family Medicine 12/16/20
--- OUTSIDE RECORDS SUMMARY | 2024-09-12 16:50 | XMS_ITS | Clinical Summary ---
[facility] Address [address] [place] [address] Care Team Providers Care Limousine And Hearse Upholsterer Name Role Phone Yash Loza MD Primary [...] Plan of Treatment Not on file Insurance [facility] HMO/PPO Address: [address] [address] Care Teams Limousine And Hearse Upholsterer Relationship Specialty Start Date End Date Yash Loza MD [address] [place] [address] [place] [address] PCP - General Family Medicine 12/16/20
--- OUTSIDE RECORDS SUMMARY | 2024-09-12 16:50 | XMS_ITS | Clinical Summary ---
Author Organization [facility] [place] Address [address] [place] [address] Care Team Providers Care Herb Doctor Name Role Phone Kelvin Aguilera DO Primary Care Provider [phone] Allergies No known active allergies Medications lisinopriL [...] Encounters Date Type Department Care Team Description 09/12/2024 3:00 PM CDT Office Visit [facility] Oncology and Hematology - [place] [address] [place] [address] Dimitri Stiles MD Malignant neoplasm of colon, unspecified part of colon (CMS/HCC) (Primary Dx) 07/31/2024 External Device Data STL ABSTRACTION Provider, Abstract 07/10/2024 External Device Data STL ABSTRACTION Provider, Abstract 06/27/2024 External Device Data STL ABSTRACTION Provider, Abstract 06/26/2024 External Device Data STL ABSTRACTION Provider, Abstract from Last 3 Months Immunizations Immunization Administration Dates Next Due (ADACEL/BOOSTRIX)(10 YR UP) TDAP VACCINE, 0.5ML, IM 05/18/2019 (PFIZER)(12 YR UP) COVID-19 VACCINE - EMERGENCY USE AUTHORIZATION, MRNA, [id number](PF) 30 MCG/0.3 ML IM SUSP 11/11/2020,10/21/2020 INFLUENZA VACCINE QUADRIVALENT 6 MOS UP IM 03/07 INFLUENZA VACCINE QUADRIVALE NT 6 MOS UP PF IM 03/17/2023,03/25/2021,03/03/2020 INFLUENZA VACCINE TRIVALENT SPLIT VIRUS, (6 MOS UP), 0.5ML (PF), IM 03/14/2024 Family History Medical History Relation Name Comments Heart Disease Father Hypertension Father Healthy Mother No Known Problems Sister Relation Name Status Comments Father Alive Mother Alive Sister Alive Social History Tobacco Use Types Packs/Day [...] Mass Index 33.56 09/12/2024 2:31 PM CDT Plan of Treatment Upcoming Encounters Date Type Department Care Team (Late st Contact Info) Description 10/11/2024 11:00 AM CDT Office Visit [facility] Oncology and Hematology - [place] [address] [facility] [facility] [place] [address] Dimitri Stiles MD [address] [place] [address] Health Maintenance Due Date Last Done Comments HEPATITIS B VACCINES (1 of 3 - 19+ 3-dose series) 1998 COLORECTAL SCREENING 01/12/2024 Colorectal Cancer Screening 01/12/2024 FIT-DNA Q 3 years 01/12/2024 FIT/FOBT Q 1 year 01/12/2024 Flex Sig/CT Colonography Q 5 years 01/12/2024 COVID-19 Vaccine ( season) 2024 11/11/2020, 10/21/2020 Preventative Visit- Commercial 06/06/2024 DTAP/TDAP/TD VACCINES (2 - Td or Tdap) 05/18/2029 05/18/2019 INFLUENZA VACCINE Completed 03/14/2024, , 03/25/2021, Additional history exists HPV VACCINES Aged Out No longer eligi ble based on patient's age to complete this topic Insurance [employer] * Guarantor: [employer] D (C) Account Type Relation to Patient Date of Phone Billing Address Corporate Employer ATTN: [employer] [address] [address] [employer] Care Teams Herb Doctor Relationship Specialty Start Date End Date Kelvin Aguilera DO [address] [place] [address] PCP - General Family Practice 12/19/23
[2024-09-12 18:51] LABS: Alanine Aminotransferase 22 U/L (6-50); Albumin Level 4.7 g/dL (3.5-5.1); Alkaline Phosphatase 67 U/L (38-126); Anion Gap 10 mmol/L (4-12); Aspartate Amino Transferase 41 U/L (17-59); Bilirubin,Total 1.3 mg/dL (0.2-1.3); Blood Urea Nitrogen 19 mg/dL (9-20); Calcium 9.6 mg/dL (8.4-10.2); Carbon Dioxide 27 mmol/L (22-30); Chloride 100 mmol/L (98-107); Estimated Glomerular Filt Rate > 60; Glucose 90 mg/dL (65-110); Potassium 4.4 mmol/L (3.4-5.0); Sodium 137 mmol/L (137-145)
[2024-09-12 19:24] LABS: Carcinoembryonic Antigen 3.1 ng/mL (0.0-3.0)
== END 2024-09-12 15:34 | disposition home or self-care (01) ==
LOC: ANHLAB 15:34
PROVIDERS: PCP Family Medicine; Visit Provider Internal Medicine Hematology & Oncology
DX: C18.9 Malignant neoplasm of colon, unspecified (principal)
CPT/HCPCS: 36415; 80053; 82378; 85025

== ENCOUNTER 2024-09-13 10:00 | Outpatient (CLI) | payer OTHER, SELFPAY ==
--- OUTSIDE RECORDS SUMMARY | 2024-09-13 10:40 | XMS_ITS | Clinical Summary ---
Author Organization [facility] [employer] [place] Address [address] [place] [address] Care Team Providers Care Aircraft Detail Draftsperson Name Role Phone Kelvin Aguilera DO Primary Care Provider [phone] Allergies No known active allergies Medications lisinopriL [...] Encounters Date Type Department Care Team Description 09/13/2024 Telephone [facility] Oncology and Hematology - [place] [address] [place] [address] Dimitri Stiles MD [employer] Testing 09/13/2024 Telephone [facility] Oncology and Hematology [place] [address] [place] [address] Dimitri Stiles MD Add on MSI Testing 09/12/2024 3:00 PM CDT Office Visit [facility] Oncology and Hematology - [place] [address] [place] [address] Dimitri Stiles MD Malignant neoplasm of [...] COVID-19 VACCINE - EMERGENCY USE AUTHORIZATION, MRNA, [id number](PF) 30 MCG/0.3 ML IM SUSP 11/11/2020,10/21/2020 INFLUENZA [...] Description 10/11/2024 11:00 AM CDT Office Visit [facility] Oncology and Hematology - [place] [address] [facility] [address] [place] [address] Dimitri Stiles MD [address] [address] [facility] [address] [place] [address] Health Maintenance Due Date Last Done Comments HEPATITIS B VACCINES (1 of 3 - 19+ 3-dose series) 1998 COVID-19 Vaccine ( - 2023- season) 2024 11/11/2020, 10/21/2020 Preventative Visit- Commercial 06/06/2024 Pre-Diabetes and Diabetes Screening 03/31/2025 03/31/2022, 09/02/2021, [...] A1C 5.4 <5.7 % of total Hgb [facility] Comment: For the purpose of screening for the presence of diabetes: <5.7% Consistent with the absence of diabetes 5.7-6.4% Consistent with increased risk for diabetes (prediabetes) > or =6.5% Consistent with diabetes This assay result is consistent with a decreased risk of diabetes. Currently, no consensus exists regarding use of hemoglobin A1c for diagnosis of diabetes in children. According to [place] Diabetes Association (ADA) guidelines, hemoglobin A1c <7.0% represents optimal control in non- diabetic patients. Different metrics may apply to specific patient populations. Standards of Medical Care in Diabetes(ADA). ESTIMATED AVERAGE GLUCOSE (MG/DL) 108 mg/dL [facility] ESTIMATED AVERAGE GLUCOSE (MMOL/L) 6.0 mmol/L [facility] Comment: Test Performed at: [facility] [address] [address] Marco Roberto D.O., MPH Blood 03/31/2022 7:19 AM CDT 04/01/2022 8:27 AM CDT Shira Anguiano CYLINDER FILLER CHEMISTRY ORDERABLES F inal Result [facility] [phone] [facility] [place] [address] [address] from Last 3 Months or Most Recently Relevant to Health Maintenance Insurance [employer] * Guarantor: [employer] D (C) Account Type Relation to Patient Date of Phone Billing Address Corporate Employer ATTN: [employer] [address] [address] [employer] Care Teams Aircraft Detail Draftsperson Relationship Specialty Start Date End Date Kelvin Aguilera DO [address] [place] [address] PCP - General Family Practice 12/19/23
--- OUTSIDE RECORDS SUMMARY | 2024-09-13 10:40 | XMS_ITS | Clinical Summary ---
Author Organization [facility] Address [address] [place] [address] Care Team Providers Care Pcas Name Role Phone Yash Loza MD Primary [...] Plan of Treatment Not on file Insurance [facility] Care Teams Pcas Relationship Specialty Start Date End Date Yash Loza MD [address] [place] [address] [place] [address] PCP - General Family Medicine 12/16/20
--- OUTSIDE RECORDS SUMMARY | 2024-09-13 10:40 | XMS_ITS | Encounter Summary ---
Author Organization [facility] [email or web address] [facility] Address [address] [place] [address] Care Team Providers Care Special Events Director Name Role Phone Kelvin Aguilera DO Primary Care Provider [phone] Reason for Referral * PET Scan (Routine) - Pending Review Specialty Diagnoses / Procedures Referred By Mena t Referred To Contact Diagnoses Malignant neoplasm of colon, unspecified part of colon (CMS/HCC) Procedures PET TUMOR OR INFECTION IMG W CT SKB Dimitri Fall MD [address] [place] [address] Phone: tel: fax: [place] [phone] Referral ID Status Reason Start Date Expiration Date Visits Requested Visits Authorized [id number] Pending Review STL CTS 09/12/2024 10/13/2025 1 1 Reason for Visit * Reason Comments Cancer Establish Care Encounter Details Date Type Department Care Team (Late st Contact Info) Description 09/12/2024 3:00 PM CDT Office Visit [facility] Oncology and Hematology [facility] [address] [facility] [address] [place] [address] Dimitri Stiles MD [address] [place] [address] Malignant neoplasm of colon, unspecified [...] COVID-19 VACCINE - EMERGENCY USE AUTHORIZATION, MRNA, [id number](PF) 30 MCG/0.3 MLIM SUSP 10/21/2020, 11/11/2020 INFLUENZA [...] dysuria; no frequency; no hesitancy; no hematuria CREPE MACHINE OPERATOR: Musculosketetal: Patient did not mention bone pain; [...] of the total time spent counseling patient [id number]. CC:?Requesting Physician Ruiz Biswas MD Primary Care Physician Kelvin Aguilera, documented in this encounter Plan of Treatment Upcoming Encounters Date Type Department Care Team (Late st Contact Info) Description 10/11/2024 11:00 AM CDT Office Visit [facility] Oncology and Hematology - [place] [address] [facility] [address] [place] [address] Dimitri Stiles MD [address] [facility] [address] [place] [address] Scheduled Orders Name Type Priority [...] Primary documented in this encounter Care Teams Special Events Director Relationship Specialty Start Date End Date Kelvin Aguilera DO [address] [place] [address] PCP - General Family Practice 12/19/23 documented as of this encounter
--- OUTSIDE RECORDS SUMMARY | 2024-09-13 10:40 | XMS_ITS | Encounter Summary ---
Author Organization [facility] [employer] [facility] Address [address] [place] [address] Care Team Providers Care Title Insurance Examiner Name Role Phone Kelvin Aguilera DO Primary Care Provider [phone] Reason for Visit * Reason Onset Date Comments Tempus Testing 09/13/2024 Encounter Details Date Type Department Care Team (Late Contact Info) Description 09/13/[address] [facility] Oncology and Hematology - [place] [address] [email or web address] [address] [place] [address] Dimitri Stiles MD [address] [facility] [address] [place] [address] Tempus Testing Social History Tobacco Use Types Packs/Day Years [...] on file documented as of this encounter Miscellaneous Notes * Telephone Encounter - Kiah Jefferson - 09/13/2024 8:33 AM CDT Called patient and had to leave a message. I let him know that Dr. Stiles has ordered some tempus testing and we would need him to come back to the office for the blood work. I asked him to call the office back and let us know when he could come up and get the labs drawn. documented in this encounter Plan of Treatment Upcoming Encounters Date Type Department Care Team (Late st Contact Info) Description 10/11/2024 11:00 AM CDT Office Visit [facility] Oncology and Hematology - [place] [address] [place] [address] Dimitri Stiles MD [address] [facility] [address] [place] [address] documented as of this encounter Visit Diagnoses Not on filedocumented in this encounter Care Teams Title Insurance Examiner Relationship Specialty Start Date End Date Kelvin Aguilera DO [address] [place] [address] PCP - General Family Practice 12/19/23 documented as of this encounter
--- OUTSIDE RECORDS SUMMARY | 2024-09-13 10:40 | XMS_ITS | Referral Summary ---
[facility] Organization [facility] Address [address] [place] [address] Care Team Providers Care Senior Credit Analyst Name Role Phone Yash Loza MD Primary [...] Plan of Treatment Not on file Insurance [facility] Care Teams Senior Credit Analyst Relationship Specialty Start Date End Date Yash Loza MD [address] [place] [address] [place] [address] PCP - General Family Medicine 12/16/20
--- OUTSIDE RECORDS SUMMARY | 2024-09-13 10:40 | XMS_ITS | Encounter Summary ---
Author Organization [facility] [employer] [facility] Address [address] [place] [address] Care Team Providers Care Edger Operator Name Role Phone Kelvin Aguilera DO Primary Care Provider [phone] Reason for Visit * Reason Onset Date Comments Add on MSI Testing 09/13/2024 Encounter Details Date Type Department Care Team ([facility] st Contact Info) Description 09/13/2024 Telephone [facility] Oncology and Hematology - [place] [address] [facility] [address] [place] [address] Dimitri Stiles MD [address] [facility] [address] [place] [address] Add on MSI Testing Social History Tobacco Use Types Packs/Day [...] Telephone Encounter - Kiah Jefferson - 09/13/2024 7:49 AM CDT Spoke with [facility] and [facility]. Asked to add on MSI testing to patients recent pathology. She asked me to fax over an order. Order faxed over. She is aware of patient and all information. * Telephone Encounter - Kiah Jefferson - 09/13/2024 7:28 AM CDT ----- Message from Dr. Dimitri Stiles sent at 09/12/2024 4:18 PM CDT ----- Can we call pathology to run MSI testing. documented in this encounter Plan of Treatment Upcoming Encounters Date Type Department Care Team (Late st Contact Info) Description 10/11/2024 11:00 AM CDT Office Visit [facility] Oncology and Hematology [facility] [address] [facility] [address] [place] [address] Dimitri Stiles MD [address] [facility] [address] [place] [address] Pending Results Name Type Priority Associated Diagnoses Date /Time [facility] XT DNA AND RNA Lab Routine Malignant neoplasm of colon, unspecified part of colon (CMS/HCC) 09/13/2024 7:32 AM CDT [facility] NORMAL BLOOD Lab Routine Malignant neoplasm of colon, unspecified part of colon (CMS/HCC) 09/13/2024 7:32 AM CDT Scheduled Orders Name Type Priority Associated Diagnoses Orde r Schedule MISCELLANEOUS LAB TEST Lab Routine Malignant neoplasm of colon, unspecified part of colon (CMS/HCC) Expected: 09/13/2024, Expires: 09/13/2025 [facility] DNA AND RNA Lab Routine Malignant neoplasm of colon, unspecified part of colon (CMS/HCC) Expected: 09/13/2024, Expires: 09/13/2025 [facility]F Lab Routine Malignant neoplasm of colon, unspecified part of colon (CMS/HCC) Expected: 09/13/2024, Expires: 09/13/2025 [facility] DNA AND RNA SOLID TUMOR Lab Routine Malignant neoplasm of colon, unspecified part of colon (CMS/HCC) Ordered: 09/13/2024 documented as of this encounter Visit Diagnoses Diagnosis Malignant neoplasm of colon, unspecified part of colon (CMS/HCC)- Primary documented in this encounter Care Teams Edger Operator Relationship Specialty Start Date End Date Kelvin Aguilera DO [address] [place] [id number] PCP - General Family Practice 12/19/23 documented as of this encounter
[2024-09-14 00:52] LABS: Kit Draw Collected
== END 2024-09-13 10:01 | disposition home or self-care (01) ==
PROVIDERS: PCP Family Medicine; Visit Provider Internal Medicine Hematology & Oncology
DX: C18.9 Malignant neoplasm of colon, unspecified (principal)
CPT/HCPCS: 36415

== ENCOUNTER 2024-10-02 10:34 | Outpatient (CLI) | payer OTHER, SELFPAY ==
--- NOTE | ~2024-10-02 | PE_ITS ---
EXAMINATION: PET skull to mid thigh DATE: 10/02/2024 13:02 INDICATION: Malignant colon cancer TECHNIQUE: Blood glucose level was 93 mg/dL. 9.959 mCi of 18-fluorodeoxyglucose (18-FDG) was administ ered i.v. Low dose computed tomography (CT) images were acquired from the base of the brain to the pr oximal thighs for attenuation correction and anatomic localization. Positron emission tomography (PET ) images were acquired in the same distribution beginning 51 minutes after injection. Images includin g fused PET/CT images were reconstructed in axial, coronal, and sagittal planes. Automated exposure c ontrol technique was employed. The dose-length product was 1434.33mGy-cm. COMPARISON: None FINDINGS: Head/neck: There is symmetric increased activity in the oral cavity, palatine tonsils, laryngeal muscles and ocu lar muscles without CT correlate, likely physiologic. Additional mild uptake throughout the right mas seter muscle without radiologic correlate, also likely physiologic. No pathologically enlarged cervic al lymphadenopathy or suspicious foci of increased FDG uptake in the visualized head or neck. Chest: 1.3 x 1.1 cm right lower lobe nodule without evident FDG uptake. No other suspicious pulmonary nodule s, pulmonary edema, pleural effusion or pneumothorax. Heart size normal. Atherosclerotic coronary art oz calcification. No pericardial effusion. Thoracic aorta normal caliber. No pathologically enlarged or FDG avid thoracic lymphadenopathy. 3.6 cm right thyroid nodule without abnormal activity and acti vity. Abdomen/pelvis/proximal thighs: Physiologic renal accumulation and excretion of FDG activity in the kidneys, bladder and along portio ns of ureters. Normal degree and heterogenous pattern of increased uptake throughout the liver withou t radiologic correlate or dominant FDG avid lesion. The gallbladder, pancreas, spleen and bilateral a drenal glands are normal. Mild moderate uptake scattered throughout the bowels without radiologic cor relate, also likely physiologic. Interval resection of the prior mass at the sigmoid colon. There is expected increased activity at the sigmoid anastomosis as well as mild uptake along a couple surgical wound along the anterior pelvic and anterolateral right lower quadrant abdominal anderson. Normal appen chilango. No other abnormal foci of increased FDG uptake or pathologically enlarged lymphadenopathy in the abdomen, pelvis or proximal thighs. 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 No susp icious lytic, blastic or abnormally FDG avid bone lesions. IMPRESSION: 1. Expected physiologic uptake at a sigmoid anastomosis post resection of a previously seen sigmoid c olon cancer. No lesion suspicious for metastatic disease. 2. No abnormal uptake to suggest malignancy associated with a 1.3 cm right lower lobe nodule. While r eassuring this does not absent exclude a slowly growing lung cancer and would recommend 6 month follo w-up low-dose noncontrast chest CT. Reviewed, dictated and finalized at location B. IMPRESSION: 1. Expected physiologic uptake at a sigmoid anastomosis post resection of a pre viously seen sigmoid colon cancer. No lesion suspicious for metastatic disease. 2. No abnormal uptake to suggest malignancy associated with a 1.3 cm right lowe r lobe nodule. While reassuring this does not absent exclude a slowly growing l eric cancer and would recommend 6 month follow-up low-dose noncontrast chest CT.
[2024-10-02 11:05] LABS: Glucose Point of Care 93 mg/dl (65-105)
--- OUTSIDE RECORDS SUMMARY | 2024-10-02 11:46 | XMS_ITS | Referral Summary ---
Author Organization [facility] Address [address] [place] [address] Care Team Providers Care Clean Out Driller Name Role Phone Yash Loza MD Primary [...] of Treatment Not on file Insurance [facility] Care Teams Clean Out Driller Relationship Specialty Start Date End Date Yash Loza MD [address] [place] [address] [place] [address] PCP - General Family Medicine 12/16/20
--- OUTSIDE RECORDS SUMMARY | 2024-10-02 11:46 | XMS_ITS | Clinical Summary ---
Author Organization [facility] [place] Address [address] [place] [address] Care Team Providers Care Door Glass Installer Name Role Phone Kelvin Aguilera DO Primary Care Provider [phone] Allergies No known active allergies Medications lisinopriL [...] Encounters Date Type Department Care Team Description 09/14/2024 Orders Only [facility] Oncology and Hematology - [place] [address] [place] [address] Dimitri Stiles MD 09/13/2024 Telephone [facility] Oncology and Hematology - [place] [address] [place] [address] Dimitri Stiles MD [facility] 09/13/2024 Telephone [facility] Oncology and Hematology [facility] [address] [place] [address] Dimitri Stiles MD Add on MSI Testing 09/12/2024 3:00 PM CDT Office Visit [facility] Oncology and [facility] [address] [place] [address] Dimitri Stiles MD Malignant neoplasm of colon, unspecified part of colon (CMS/HCC) (Primary Dx) 07/31/2024 External Device Data STL ABSTRACTION Provider, Abstract 07/10/2024 External Device Data STL ABSTRACTION Provider, Abstract from Last 3 Months Immunizations Immunization Administration Dates Next Due (ADACEL/BOOSTRIX)(10 YR UP) TDAP VACCINE, 0.5ML, IM 05/18/2019 (PFIZER)(12 YR UP) COVID-19 VACCINE - EMERGENCY USE AUTHORIZATION, MRNA, [id number](PF) 30 MCG/0.3 ML IM SUSP 11/11/2020,10/21/2020 INFLUENZA [...] Description 10/11/2024 11:00 AM CDT Office Visit [facility] Oncology and Hematology - [place] [address] [facility] [address] [place] [address] Dimitri Stiles MD [address] [facility] [address] [place] [address] Health Maintenance Due Date Last Done Comments HEPATITIS B VACCINES (1 of 3 - 19+ 3-dose series) 1998 COVID-19 Vaccine ( season) 2024 11/11/2020, 10/21/2020 Pre-Diabetes and Diabetes Screening 03/31/2025 03/31/2022, 09/02/2021, 05/21/2020 DTAP/TDAP/TD VACCINES (2 - Td or Tdap) 05/18/2029 05/18/2019 INFLUENZA VACCINE Completed 03/14/2024, , 03/25/2021, Additional history exists HPV VACCINES Aged Out No longer eligi ble based on patient's age to complete this topic Procedures Procedure Name Priority Date/Time Associated Diagnosis Comments [facility] XF Routine 09/22/2024 2:45 PM CDT Malignant neoplasm of colon, unspecified part of colon (CMS/HCC) [facility] XT NORMAL BLOOD Routine 7:32 AM CDT Malignant neoplasm of colon, unspecified part of colon (CMS/HCC) COMPREHENSIVE METABOLIC PANEL Routine 09/12/2024 2:10 PM CDT CBC WITH AUTODIFFERENTIAL Routine 09/12/2024 1:58 PM CDT HEMOGLOBIN A1C Routine 03/31/2022 7:19 AM CDT Screening for condition from Last 3 Months or Most Recently Relevant to Health Maintenance Results * [facility] XF (09/22/2024 2:45 PM CDT) Reason for Study To identify mutations relevant to patient's cancer. 09/22/2024 2:45 PM CDT [facility] Genetic Diseases Assessed Cancer 09/22/2024 2:45 PM CDT [facility] Description of Ranges of DNA Sequences Examined 105 gene liquid biopsy 09/22/2024 2:45 PM CDT [facility] Overall Interpretation inconclusive 09/22/2024 2:45 PM CDT [facility] Portal [email or web address] 09/22/2024 2:45 PM CDT [facility] Comment:[facility] link Low Coverage Regions MSH3, TERT, TSC2 09/22/2024 2:45 PM CDT [facility] Blood Tumor Mutational [place] Note bTMB cannot be calculated due to insufficient circulating tumor DNA. 09/22/2024 2:45 PM CDT [facility] Genomic Variant Note No reportable pathogenic variants were found. 09/22/2024 2:45 PM CDT [facility] Microsatellite Instability Note MSI-High not detected 09/22/2024 2:45 PM CDT [facility] Variants of Unknown Significance Note No reportable variants of unknown significance (VUSs) were found. 09/22/2024 2:45 PM CDT [facility] Treatment Implications Note No reportable treatment options found. 09/22/2024 2:45 PM CDT [facility] Blood specimen (specimen) 09/15/2024 11:11 PM CDT us Dimitri Stiles MD MOLECULAR ORDERABLES Final Resu lt Performing Organization Address City/[facility]/ZIP Co de Phone Number [facility] [address] [facility], [address] [place] [address], [place] [phone] [facility] [address] [facility], [address] [place] [address] * [facility] X[facility] NORMAL BLOOD (09/13/2024 7:32 AM CDT) [facility] 09/13/2024 11:01 PM CDT [facility] Comment:See NGS Report for R esults. Blood specimen (specimen) 09/13/2024 7:32 AM CDT 09/13/2024 7:33 AM CDT us Dimitri Stiles MD MOLECULAR ORDERABLES Final Resu lt Performing Organization Address [facility] Co de Phone Number [facility] [address] [facility], [address] [place] [address], [place] [phone] [facility] [address] [facility], [address] [place] [address] * COMPREHENSIVE METABOLIC PANEL (09/12/2024 2:10 PM CDT) Blood us Dimitri Stiles MD CHEMISTRY ORDERABLES Final Resu lt * CBC WITH AUTODIFFERENTIAL (09/12/2024 1:58 PM CDT) Blood us Dimitri Stiles MD HEMATOLOGY ORDERABLES Final Res ult * HEMOGLOBIN A1C (03/31/2022 7:19 AM CDT) [...] diagnosis of diabetes in children. According to [place] Diabetes Association (ADA) guidelines, hemoglobin A1c <7.0% represents optimal control in non- diabetic patients. Different metrics may apply to specific patient populations. Standards of Medical Care in Diabetes(ADA). ESTIMATED AVERAGE GLUCOSE (MG/DL) 108 mg/dL [facility] ESTIMATED AVERAGE GLUCOSE (MMOL/L) 6.0 mmol/L [facility] Comment: Test Performed at: [facility] [id number] [place] [id number] Marco Roberto D.O., MPH Blood 03/31/2022 7:19 AM CDT 04/01/2022 8:27 AM CDT Shira Anguiano [facility] CHEMISTRY ORDERABLES F inal Result [facility] [phone] [facility] [id number] [address] [place], [place] [phone] from Last 3 Months or Most Recently Relevant to Health Maintenance Insurance [employer] * Guarantor: MICHELLE MILLER-[employer] ([employer]) Account Type Relation to Patient Date of Phone Billing Address Corporate Employer ATTN: [employer] [address] [address] [employer] Care Teams Door Glass Installer Relationship Specialty Start Date End Date Kelvin Aguilera DO [address] [place] [address] PCP - General Family Practice 12/19/23
--- OUTSIDE RECORDS SUMMARY | 2024-10-02 11:46 | XMS_ITS | Clinical Summary ---
Author Organization [facility] Address [address] [place] [address] Care Team Providers Care Drophammer Operator Name Role Phone Yash Loza MD Primary [...] Plan of Treatment Not on file Insurance [facility] H[facility]/PPO Address: [address] [address] Care Teams Drophammer Operator Relationship Specialty Start Date End Date Yash Loza MD [address] [place] [address] [place] [address] PCP - General Family Medicine 12/16/20
== END 2024-10-02 10:35 | disposition home or self-care (01) ==
PROVIDERS: PCP Family Medicine; Visit Provider Internal Medicine Hematology & Oncology
DX: C18.9 Malignant neoplasm of colon, unspecified (principal); Z90.49 Acquired absence of other specified parts of digestive tract; Z98.0 Intestinal bypass and anastomosis status; R91.1 Solitary pulmonary nodule
CPT/HCPCS: 78815; A9552

== ENCOUNTER 2024-11-05 08:04 | Outpatient (CLI) | payer OTHER, SELFPAY ==
--- OUTSIDE RECORDS SUMMARY | 2024-11-05 08:08 | XMS_ITS | Referral Summary ---
Author Organization [facility] Address [address] [place] [address] Care Team Providers Care Yarn Carrier Name Role Phone Yash Loza MD Primary [...] Plan of Treatment Not on file Insurance [facility] Care Teams Yarn Carrier Relationship Specialty Start Date End Date Yash Loza MD [address] [place] [address] [place] [address] PCP - General Family Medicine 12/16/20
--- OUTSIDE RECORDS SUMMARY | 2024-11-05 08:08 | XMS_ITS | Clinical Summary ---
Author Organization [facility] Address [address] [place] [address] Care Team Providers Care Air Hose Coupler Name Role Phone Yash Loza MD Primary [...] file Insurance [facility] Care Teams Air Hose Coupler Relationship Specialty Start Date End Date Yash Loza MD [address] [place] [address] [place] [address] PCP - General Family Medicine 12/16/20
--- OUTSIDE RECORDS SUMMARY | 2024-11-05 08:08 | XMS_ITS | Clinical Summary ---
Author Organization [facility] Address [address] [place] [address] [place] [address] Care Team Providers Care Director Human Services Name Role Phone Kelvin Aguilera DO Primary Care Provider [phone] Allergies No known active allergies Medications lisinopriL (PRINIVIL) 10 mg tabletIndicat ions:HTN (hypertension ), benign Take 1 Tablet (10 mg) by mouth daily. 90 Tablet 1 06/21/19 24 Active rosuvastatin (CRESTOR) 20 mg tablet take 1 tablet daily 90 Tablet 3 12/02/19 24 Active PARoxetine HCl (PAXIL) 10 mg tabletIndicat ions:Anxiety state take 1 tablet daily 90 Tablet 3 12/02/19 24 Active capecitabine (XELODA) 150 mg tablet TAKE 4 TABLETS OF 150 MG WITH 4 TABLETS OF 500 MG (TOTAL 2,600 MG) TWICE DAILY WITH MEALS FOR 14 DAYS ON, 7 DAYS OFF. TAKE ON DAYS 1 THROUGH 14 FOR A 21 DAY CYCLE (FOR 6 CYCLES) 112 Tablet 10/23/19 25 Active capecitabine (XELODA) 500 mg tablet TAKE 4 TABLETS OF 500 MG WITH 4 TABLETS OF 150 MG (TOTAL DOSE 2,600 MG) TWICE DAILY WITH MEALS FOR 14 DAYS ON, 7 DAYS OFF 112 Tablet 10/23/19 25 Active capecitabine (XELODA) 150 mg tablet Take 4 Tablets (600 mg) by mouth 2 times daily with meals for 14 days on, 7 days off with 1 other capecitabine prescription for 2,600 mg total. 112 Tablet 10/12/19 25 025 Discontinued(R eorder) capecitabine (Xeloda) 500 mg tablet Take 4 Tablets (2,000 mg) by mouth 2 times daily with meals for 14 days on, 7 days off with 1 other capecitabine prescription for 2,600 mg total. 112 Tablet 10/12/19 25 025 Discontinued(R eorder) capecitabine (XELODA) 150 mg tablet Take 4 Tablets (600 mg) by mouth 2 times daily with meals for 14 days on, 7 days off with 1 other capecitabine prescription for 2,600 mg total. 112 Tablet 10/13/19 25 025 Discontinued capecitabine (Xeloda) 500 mg tablet Take 4 Tablets (2,000 mg) by mouth 2 times daily with meals for 14 days on, 7 days off with 1 other capecitabine prescription for 2,600 mg total. 112 Tablet 10/13/19 25 025 Discontinued Active Problems Problem Noted Date Diagnosed Date Generalized anxiety disorder 06/21/2023 YASMANI on CPAP 12/03/2022 Overview (12/03/2022): Severe on sleep study 2017. In Media Vitamin D deficiency 11/26/2022 Elevated bilirubin 11/26/2022 Overview (11/26/2022): Negative eval at hepatology consult 2021 Environmental and seasonal allergies 09/02/2021 Anxiety state 05/18/2019 HTN (hypertension), benign 05/18/2019 Hyperlipidemia Encounters Date Type Department Care Team Description 10/22/2024 Refill [facility] ([facility]3] Oncology and Hematology - [place] [address] [place] [address] Dimitri Stiles MD 10/22/2024 Refill [facility]3] Oncology and Hematology - [place] [address] [place] [address] Dimitri Stiles MD 10/16/2024 Specialty Pharmacy [facility] [address] [place] [phone] Sharon Curtis, PHARMACIST 10/12/2024 Specialty Pharmacy [facility] [address] [place] [phone] Sharon Curtis, PHARMACIST Specialty Pharmacy Refill Coordination 10/12/2024 Refill [facility] ([facility]3] Oncology and Hematology - [place] [address] Dimitri Stiles MD 10/12/2024 Specialty Pharmacy [facility] [address] [facility] [place] [address] Sharon Curtis, PHARMACIST Specialty Pharmacy Prior Auth Coordination 10/11/2024 11:00 AM CDT Office Visit [facility] ([facility]3] Oncology and Hematology - [place] [address] [place] [address] Dimitri Stiles MD Malignant neoplasm of colon, unspecified part of colon (CMS/HCC) (Primary Dx) 10/11/2024 Orders Only [facility]3] Oncology and Hematology - [place] [address] [place] [address] Dimitri Stiles MD 10/04/2024 Orders Only [facility]3] Oncology and Hematology - [place] [address] [place] [address] Dimitri Stiles MD 10/03/2024 Orders Only [facility]3] Oncology and Hematology - [place] [address] [place] [phone] Dimitri Stiles MD 09/14/2024 Orders Only [facility]3] Oncology and Hematology - [place] [address] [place] [address] Dimitri Stiles MD 09/13/2024 Telephone [facility]3] Oncology and Hematology - [place] [address] [place] [address] Dimitri Stiles MD [facility] 09/13/2024 Telephone [facility]3] Oncology and Hematology - [place] [address] [place] [address] Dimitri Stiles MD Add on [facility] 09/12/2024 3:00 PM CDT Office Visit [facility]3] Oncology and Hematology - [place] [address] [place] [address] Dimitri Stiles MD Malignant neoplasm of colon, unspecified part of colon (CMS/HCC) (Primary Dx) from Last 3 Months Immunizations Immunization Administration Dates Next Due (ADACEL/BOOSTRIX)(10 YR UP) TDAP VACCINE, 0.5ML, IM 05/18/2019 (PFIZER)(12 YR UP) COVID-19 VACCINE - EMERGENCY USE AUTHORIZATION, MRNA, [id number](PF) 30 MCG/0.3 ML IM SUSP 11/11/2020,10/21/2020 INFLUENZA [...] Sign Reading Time Taken Comments Blood Pressure 128/89 10/11/2024 10:58 AM CDT Pulse 64 10/11/2024 10:55 AM CDT Temperature 36.2 C (97.1 F) 10/11/2024 10:55 AM CDT Respiratory Rate 16 10/11/2024 10:55 AM CDT Oxygen Saturation 98% 10/11/2024 10:55 AM CDT Inhaled Oxygen Concentration - - Weight 120.2 kg (265 lb) 10/11/2024 10:55 AM CDT Height 185.4 cm (6' 1) 09/12/2024 2:31 PM CDT Body Mass Index 34.96 09/12/2024 2:31 PM CDT Plan of Treatment Upcoming Encounters Date Type Department Care Team (Late st Contact Info) Description 11/05/2024 8:45 AM CDT Office Visit [facility]3] Oncology and Hematology - [facility] [address] [facility] [address] [place] [address] Dimitri Stiles MD [address] [facility] [address] [place] [address] Health Maintenance Due Date Last Done Comments HEPATITIS B VACCINES (1 of 3 - 19+ 3-dose series) 1998 COVID-19 Vaccine (2023- season) 2024 11/11/2020, 10/21/2020 Pre-Diabetes and Diabetes Screening 03/31/2025 03/31/2022, 09/02/2021, 05/21/2020 DTAP/TDAP/TD VACCINES (2 - Td or Tdap) 05/18/2029 05/18/2019 INFLUENZA VACCINE Completed 03/14/2024, , 03/25/2021, Additional history exists HPV VACCINES Aged Out No longer eligi ble based on patient's age to complete this topic Procedures Procedure Name Priority Date/Time Associated Diagnosis Comments PET BONE IMG W CT SKL BSE MID THG Routine 10/02/2024 3:14 PM CDT PET BONE IMG W CT SKL BSE MID THG Routine 10/02/2024 9:19 AM CDT GLUCOSE LEVEL Routine 10/02/2024 8:25 AM CDT [facility] Routine 09/22/2024 2:45 PM CDT [...] Recently Relevant to Health Maintenance Results * PET BONE IMG W CT SKB MDTH (10/02/2024 3:14 PM CDT) Only the most recent of2 resultswithin the time period is included. Anatomical Region Laterality Modality Positron Emissio n Tomography (PET) Dimitri Stiles MD PE ORDERABLES Final Result * GLUCOSE LEVEL (10/02/2024 8:25 AM CDT) Blood Dimitri Stiles MD CHEMISTRY ORDERABLES Final Resu lt * [facility] XF (09/22/2024 2:45 PM CDT) Reason for Study To identify mutations relevant to patient's cancer. 09/22/2024 2:45 PM CDT [facility] Genetic Diseases Assessed Cancer 09/22/2024 2:45 PM CDT [facility] Description of Ranges of DNA Sequences Examined 105 gene liquid biopsy 09/22/2024 2:45 PM CDT [facility] Overall Interpretation inconclusive 09/22/2024 2:45 PM CDT [facility] [email or web address] 09/22/2024 2:45 PM CDT [facility] Comment:[facility] link Low Coverage Regions MSH3, TERT, TSC2 09/22/2024 2:45 PM CDT [facility] Blood Tumor Mutational [place] Note bTMB cannot be calculated due to [...] ORDERABLES Final Resu lt Performing Organization Address [facility] de Phone Number [facility] [address] [facility], [address] [place] [phone], [facility] [address] [facility], [address] [place] [phone] * [facility] NORMAL BLOOD (09/13/2024 7:32 AM CDT) [facility] 09/13/2024 11:01 PM CDT [facility] Comment:See NGS Report for R esults. Blood specimen (specimen) 09/13/2024 7:32 AM CDT 09/13/2024 7:33 AM CDT us Dimitri Stiles MD MOLECULAR ORDERABLES Final Resu lt Performing Organization Address [facility] de Phone Number [facility] [address] [facility], [address] [place] [address], [place] [phone] [facility] [address] [facility], [address] [place] [id number] * COMPREHENSIVE METABOLIC PANEL (09/12/2024 2:10 PM CDT) Blood us Dimitri Stiles MD CHEMISTRY ORDERABLES Final Resu lt * CBC WITH AUTODIFFERENTIAL (09/12/2024 1:58 PM CDT) Blood us Dimitri Stiles MD HEMATOLOGY ORDERABLES Final Res ult * HEMOGLOBIN A1C (03/31/2022 7:19 AM CDT) HEMOGLOBIN A1C 5.4 <5.7 % of total Hgb [facility] Comment: For the purpose of screening for the presence of diabetes: <5.7% Consistent with the absence of diabetes 5.7-6.4% Consistent with increased risk for diabetes (prediabetes) > or =6.5% Consistent with diabetes This assay result is consistent with a decreased risk of diabetes. Currently, no consensus exists regarding use of hemoglobin A1c for diagnosis of diabetes in children. According to [place] Diabetes Association (ADA) guidelines, hemoglobin A1c <7.0% represents optimal control in non- diabetic patients. Different metrics may apply to specific patient populations. Standards of Medical Care in Diabetes(ADA). ESTIMATED AVERAGE GLUCOSE (MG/DL) 108 mg/dL [facility] ESTIMATED AVERAGE GLUCOSE (MMOL/L) 6.0 mmol/L [facility] Comment: Test Performed at: [facility] [address] [place] [address] Marco Roberto D.O., MPH Blood 03/31/2022 7:19 AM CDT 04/01/2022 8:27 AM CDT Shira Anguiano SAP TECHNICAL ARCHITECT CHEMISTRY ORDERABLES F inal Result [facility] [phone] [facility] [address] [place] [phone] from Last 3 Months or Most Recently Relevant to Health Maintenance [facility] [employer] [facility] * Guarantor: MICHELLE MILLER[employer] A MOHSEN Landers (C) Account Type Relation to Patient Date of Phone Billing Address Corporate Employer ATTN: [employer] [address] [address] [employer] Care Teams Director Human Services Relationship Specialty Start Date End Date Kelvin Aguilera DO [address] [place] [address] PCP - General Family Practice 12/19/23
[2024-11-05 08:24] LABS: Basophils Absolute Auto 0.1 K/mm3 (0.0-0.1); Basophils Percent Auto 0.5 % (0.2-1.2); Eosinophils Absolute Auto 0.1 K/mm3 (0-0.3); Hematocrit 40.4 % (42.0-52.0); Hemoglobin 13.4 g/dL (14.0-18.0); Immature Granulocyte Absolute 0.04 K/mm3 (0.00-0.031); Immature Granulocyte Percent A 0.4 % (0-0.5); Lymphocytes Absolute Auto 1.59 K/mm3 (0.9-3.2); Lymphocytes Percent Auto 16.8 % (18.3-44.2); Mean Corpuscular HGB Conc 33.2 g/dl (32-36); Mean Corpuscular Hemoglobin 28.5 pg (26-34); Mean Platelet Volume 9.3 fl (7.4-10.4); Monocytes Percent Auto 10.9 % (2.6-8.5); Neutrophils Absolute Auto 6.6 K/mm3 (1.3-6.7); Neutrophils Percent Auto 70.4 % (45.5-73.1); Platelet Count Result 293 k/mm3 (150-375); Red Cell Distribution Width 14.5 % (11.5-14.5); White Blood Count 9.4 K/mm3 (4.5-10.0)
[2024-11-05 08:29] LABS: Blood Urea Nitrogen 7 mg/dL (8-26); Carbon Dioxide 25 mmol/L (22-30); Chloride 100 mmol/L (98-109); Estimated Glomerular Filt Rate > 60; Glucose 109 mg/dL (70-105); Ionized Calcium (POC) 1.26 mmol/L (1.11-1.31); Potassium 4.4 mmol/L (3.5-4.9); Sodium 138 mmol/L (138-146)
== END 2024-11-05 08:05 | disposition home or self-care (01) ==
LOC: ANHLAB 08:05
PROVIDERS: Visit Provider Internal Medicine Hematology & Oncology
DX: C18.9 Malignant neoplasm of colon, unspecified (principal)
CPT/HCPCS: 36415; 80047; 85025

== ENCOUNTER 2024-12-04 14:23 | Outpatient (CLI) | payer OTHER, SELFPAY ==
--- OUTSIDE RECORDS SUMMARY | 2024-12-04 14:26 | XMS_ITS | Clinical Summary ---
Author Organization [facility] Building [facility] Address [address] [place] [address] Care Team Providers Care Night Court Magistrate Name Role Phone Yash Loza MD Primary [...] of Treatment Not on file Insurance [facility] Care Teams Night Court Magistrate Relationship Specialty Start Date End Date Yash Loza MD [address] [place] [address] [place] [address] PCP - General Family Medicine 12/16/20
--- OUTSIDE RECORDS SUMMARY | 2024-12-04 14:26 | XMS_ITS | Clinical Summary ---
Author Organization [facility] [employer] [place] Address [address] [place] [address] [place] [address] Care Team Providers Care Broadcast Field Supervisor Name Role Phone Kelvin Aguilera DO Primary Care Provider Allergies No known active allergies Medications lisinopriL (PRINIVIL) 10 mg tabletIndicati ons:HTN (hypertension) , benign Take 1 Tablet (10 mg) by mouth daily. 90 Tablet 1 4 Active rosuvastatin (CRESTOR) 20 mg tablet take 1 tablet daily 90 Tablet 3 4 Active PARoxetine HCl (PAXIL) 10 mg tabletIndicati ons:Anxiety state take 1 tablet daily 90 Tablet 3 4 Active capecitabine (XELODA) 500 mg tablet TAKE 4 TABLETS OF 500 MG WITH 4 TABLETS OF 150 MG (TOTAL DOSE 2,600 MG) TWICE DAILY WITH MEALS FOR 14 DAYS ON, 7 DAYS OFF 112 Tablet 5 Active capecitabine (XELODA) 150 mg tablet TAKE 4 TABLETS OF 150 MG WITH 4 TABLETS OF 500 MG (TOTAL 2,600 MG) TWICE DAILY WITH MEALS FOR 14 DAYS ON, 7 DAYS OFF. TAKE ON DAYS 1 THROUGH 14 FOR A 21 DAY CYCLE (FOR 6 CYCLES) 112 Tablet 5 Active capecitabine (XELODA) 150 mg tablet TAKE 4 TABLETS OF 150 MG WITH 4 TABLETS OF 500 MG (TOTAL 2,600 MG) TWICE DAILY WITH MEALS FOR 14 DAYS ON, 7 DAYS OFF. TAKE ON DAYS 1 THROUGH 14 FOR A 21 DAY CYCLE (FOR 6 CYCLES) 112 Tablet 5 11/13/19 25 Discontinued capecitabine (XELODA) 500 mg tablet TAKE 4 TABLETS OF 500 MG WITH 4 TABLETS OF 150 MG (TOTAL DOSE 2,600 MG) TWICE DAILY WITH MEALS FOR 14 DAYS ON, 7 DAYS OFF 112 Tablet 5 11/13/19 25 Discontinued capecitabine (XELODA) 150 mg tablet TAKE 4 TABLETS OF 150 MG WITH 4 TABLETS OF 500 MG (TOTAL 2,600 MG) TWICE DAILY WITH MEALS FOR 14 DAYS ON, 7 DAYS OFF. TAKE ON DAYS 1 THROUGH 14 FOR A 21 DAY CYCLE (FOR 6 CYCLES) 112 Tablet 5 11/28/19 25 Discontinued capecitabine (XELODA) 500 mg tablet TAKE 4 TABLETS OF 500 MG WITH 4 TABLETS OF 150 MG (TOTAL DOSE 2,600 MG) TWICE DAILY WITH MEALS FOR 14 DAYS ON, 7 DAYS OFF 112 Tablet 5 11/28/19 25 Discontinued Active Problems Problem Noted Date Diagnosed Date Generalized anxiety disorder 06/21/2023 YASMANI on CPAP 12/03/2022 Overview (12/03/2022): Severe on sleep study 2017. In Media Vitamin D deficiency 11/26/2022 Elevated bilirubin 11/26/2022 Overview (11/26/2022): Negative eval at hepatology consult 2021 Environmental and seasonal allergies 09/02/2021 Anxiety state 05/18/2019 HTN (hypertension), benign 05/18/2019 Hyperlipidemia Encounters Date Type Department Care Team Description 11/27/2024 [facility] Oncology and Hematology - [place] [address] [place] [address] Dimitri Stiles MD 11/27/2024 [facility] Oncology and Hematology - [place] [address] [place] [address] Dimitri Stiles MD 11/26/2024 [facility] at Work [employer] [place] [address] [place] [address] Nori Abrams MD Anxiety state 11/12/2024 [facility] Oncology and Hematology - [place] [address] [place] [address] Dimitri Stiles MD 11/05/2024 8:45 AM CDT Office Visit [facility] Oncology and Hematology [facility] [address] [place] [phone] Dimitri Stiles MD Malignant neoplasm of colon, unspecified part of colon (CMS/HCC) (Primary Dx) 11/05/2024 Orders Only [facility] Oncology and Hematology - [place] [address] [place] [address] Dimitri Stiles MD 10/22/2024 Refill [facility] Oncology and Hematology - [place] [address] [place] [phone] Dimitri Stiles MD 10/22/2024 Refill [facility] Oncology and Hematology - [place] [address] [place] [phone] Dimitri Stiles MD 10/16/[address] [facility] [address] [place] [phone] Sharon Curtis, PHARMACIST 10/12/2024 Specialty Pharmacy [facility] [address] [place] [phone] Sharon Curtis, PHARMACIST Specialty Pharmacy Refill Coordination 10/12/2024 Refill [facility] Oncology and Hematology [place] [address] [place] [address] Dimitri Stiles MD 10/12/[address] [facility] [address] [place] [phone] Sharon Curtis, PHARMACIST Specialty Pharmacy Prior Auth Coordination 10/11/2024 11:00 AM CDT Office Visit [facility] Oncology and Hematology - [place] [address] [place] [address] Dimitri Stiles MD Malignant neoplasm of colon, unspecified part of colon (CMS/HCC) (Primary Dx) 10/11/2024 Orders Only [facility] Oncology and Hematology - [place] [address] [place] [phone] Dimitri Stiles MD 10/04/2024 Orders Only [facility] Oncology and Hematology - [place] [address] [place] [address] Dimitri Stiles MD 10/03/2024 Orders Only [facility] Oncology and Hematology - [place] [address] [place] [address] Dimitri Stiles MD 09/14/2024 Orders Only [facility] Oncology and Hematology - [place] [address] [place] [address] Dimitri Stiles MD 09/13/2024 Telephone [facility] Oncology and Hematology - [place] [address] [place] [address] Dimitri Stiles MD [facility] 09/13/2024 Telephone [facility] Oncology and Hematology [facility] [address] [place] [phone] Dimitri Stiles MD Add on [facility] Testing 09/12/2024 3:00 PM CDT Office Visit [facility] Oncology and Hematology [facility] [address] [place] [phone] Dimitri Stiles MD Malignant neoplasm of colon, unspecified part of colon (CMS/HCC) (Primary Dx) from Last 3 Months Immunizations Immunization Administration Dates Next Due (ADACEL/BOOSTRIX)(10 YR UP) TDAP VACCINE, 0.5ML, IM 05/18/2019 (PFIZER)(12 YR UP) COVID-19 VACCINE - EMERGENCY USE AUTHORIZATION, MRNA, [id number](PF) 30 MCG/0.3 ML IM SUSP 11/11/2020,10/21/2020 INFLUENZA [...] Sign Reading Time Taken Comments Blood Pressure 125/82 11/05/2024 8:29 AM CDT Pulse 68 11/05/2024 8:29 AM CDT Temperature 36.2 C (97.2 F) 11/05/2024 8:29 AM CDT Respiratory Rate 16 11/05/2024 8:29 AM CDT Oxygen Saturation 97% 11/05/2024 8:29 AM CDT Inhaled Oxygen Concentration - - Weight 111.3 kg (245 lb 6.4 oz) 11/05/2024 8:29 AM CDT Height 185.4 cm (6' 1) 09/12/2024 2:31 PM CDT Body Mass Index 32.38 09/12/2024 2:31 PM CDT Plan of Treatment Upcoming Encounters Date Type Department Care Team (Late st Contact Info) Description 12/05/2024 10:00 AM CDT Office Visit [facility] On[facility] and [facility]ematology - [place] [address] [facility] [address] [place] [address] Dimitri Stiles MD [address] [facility] [address] [place] [address] Health Maintenance Due Date Last Done Comments HEPATITIS B VACCINES (1 of 3 - 19+ 3-dose series) 1998 COVID-19 Vaccine (2023- season) 2024 11/11/2020, 10/21/2020 Preventative Visit- Commercial 06/06/2024 INFLUENZA VACCINE (#1) 2025 , 03/17/2023, 03/25/2021, Additional history exists Pre-Diabetes and Diabetes Screening 03/31/2025 03/31/2022, 09/02/2021, 05/21/2020 DTAP/TDAP/TD VACCINES (2 - Td or Tdap) 05/18/2029 05/18/2019 HPV VACCINES Aged Out No longer eligi ble based on patient's age to complete this topic Procedures Procedure Name Priority Date/Time Associated Diagnosis Comments BASIC METABOLIC PANEL Routine 11/05/2024 2:18 PM CDT CBC WITH DIFFERENTIAL Routine 11/05/2024 2:16 PM CDT PET BONE IMG W CT SKL BSE MID THG Routine 10/02/2024 3:14 PM CDT PET BONE IMG W CT SKL BSE MID THG Routine 10/02/2024 9:19 AM CDT GLUCOSE LEVEL Routine 10/02/2024 8:25 AM CDT [facility] XF Routine 09/22/2024 2:45 PM CDT Malignant neoplasm of colon, unspecified part of colon (CMS/HCC) [facility] DNA AND RNA Routine 09/13/2024 7:32 AM CDT Malignant neoplasm of colon, unspecified part of colon (CMS/HCC) [facility] NORMAL BLOOD Routine 7:32 AM CDT Malignant neoplasm of colon, unspecified part of colon (CMS/HCC) [facility] DNA AND RNA SOLID TUMOR Routine 09/13/2024 7:32 AM CDT Malignant neoplasm of colon, unspecified part of colon (CMS/HCC) COMPREHENSIVE METABOLIC PANEL Routine 09/12/2024 2:10 PM CDT CBC WITH AUTODIFFERENTIAL Routine 09/12/2024 1:58 PM CDT HEMOGLOBIN A1C Routine 03/31/2022 7:19 AM CDT Screening for condition from Last 3 Months or Most Recently Relevant to Health Maintenance Results * BASIC METABOLIC PANEL (11/05/2024 2:18 PM CDT) Blood us Dimitri Stiles MD CHEMISTRY ORDERABLES Final Resu lt * CBC WITH DIFFERENTIAL (11/05/2024 2:16 PM CDT) Blood us Dimitri Stiles MD HEMATOLOGY ORDERABLES Final Res ult * PET BONE IMG W CT SKB MD (10/02/2024 3:14 PM CDT) Only the most recent of2 resultswithin the time period is included. Anatomical Region Laterality Modality Positron Emissio n Tomography (PET) Dimitri Stiles MD PE ORDERABLES Final Result * GLUCOSE LEVEL (10/02/2024 8:25 AM CDT) Blood us Dimitri Stiles MD CHEMISTRY [...] PM CDT [facility] [email or web address] 09/22/2024 2:45 PM CDT [facility] Comment:[facility] link Low Coverage Regions MSH3, TERT, TSC2 09/22/2024 2:45 PM CDT [facility] Blood Tumor Mutational Lotus Note bTMB cannot be calculated due to [...] Blood specimen (specimen) 09/15/2024 11:11 PM CDT Dimitri Stiles MD MOLECULAR ORDERABLES Final Resu lt Performing Organization Address City/[facility]/ZIP Co de Phone Number [facility] [address], [address] [place] [address], [facility] [address] [facility], [address] [place], [place] [address] * [facility] NORMAL BLOOD (09/13/2024 7:32 AM CDT) [facility] 09/13/2024 11:01 PM CDT [facility] Comment:See NGS Report for R esults. Blood specimen (specimen) 09/13/2024 7:32 AM CDT 09/13/2024 7:33 AM CDT us Dimitri Stiles MD MOLECULAR ORDERABLES Final Resu lt Performing Organization Address City/[facility]/ZIP Co de Phone Number [facility] [address], [address] [place] [address], [place] [phone] [facility] [address] [facility], [address] [place], [place] [address] * [facility] DNA AND RNA SOLID TUMOR (09/13/2024 7:32 AM CDT) Reason for Study To identify somatic and germline mutations relevant to patient's cancer. 11/15/2024 12:18 PM CDT [facility] Genetic Diseases Assessed Cancer 11/15/2024 12:18 PM CDT [facility] Description of Ranges of DNA Sequences Examined 648 gene panel 11/15/2024 12:18 PM CDT [facility] Overall Interpretation positive 11/15/2024 12:18 PM CDT [facility] MSI Stable 11/15/2024 12:18 PM CDT [facility] TMB 2.6 m/MB 11/15/2024 12:18 PM CDT [facility] [email or web address] Shop. Like a Man./patient [email or web address] d1 11/15/2024 12:18 PM CDT [facility] Comment:[facility] link Pertinent Negatives BRAF, NRAS 11/15/2024 12:18 PM CDT [facility] Therapy Count 1 11/15/2024 12:18 PM CDT [facility]: Potential Therapy 1 Gene: 6407^KRAS^HGNC Variant: p.G12D Match Type: snvIndel Match Type Description: KRAS p.G12D Agent: Cetuximab or Panitumumab Drug Class: Anti-EGFR MAb Tissue: Colorectal Cancer Association: Resistance Evidence Status: Consensus Evidence ID: [id number] KDB Variant: Xjrg-tr-wbslcydt MSK Associated Evidence: MSK OncoKB, Level R1 Label: FDA On Label FDA Approved?: Yes On label?: Yes 11/15/2024 12:18 PM CDT [facility] Trial Count 3 11/15/2024 12:18 PM CDT [facility]: Clinical Trial Match 1 Clinical Trial NCT ID: [id number] Clinical Trial Title: A Phase 1/2 Study of Inlexisertib (DCC-3116) in Patients With JOÃO/MAPK Pathway Mutant Solid Tumors Clinical Trial URL: https://clinical trials.gov/ct2/s how/[email or web address] Clinical Phase: Phase 1/Phase 2 Clinical Trial Matches: KRAS p.G12D mutation Clinical Trial Distance and Location: [address] [place], [place] 11/15/2024 12:18 PM CDT [facility]: Clinical Trial Match 2 Clinical Trial NCT ID: [id number] Clinical Trial Title: FOG-001 in Locally Advanced or Metastatic Solid Tumors Clinical Trial URL: https://clinical trials.gov/ct2/s how/[email or web address] Clinical Phase: Phase 1/Phase 2 Clinical Trial Matches: APC p.R216* mutation Clinical Trial Distance and Location: [address] [place] [address] 11/15/2024 12:18 PM CDT [facility]: Clinical Trial Match 3 Clinical Trial NCT ID: [id number] Clinical Trial Title: A Study to Learn About the Study Medicine [id number] When Given Alone or With Other Anti-cancer Therapies in People With Advanced Solid Tumors That Have a Genetic Mutation. Clinical Trial URL: https://clinical trials.gov/ct2/s how/[email or web address] Clinical Phase: Phase 1 Clinical Trial Matches: KRAS p.G12D mutation Clinical Trial Distance and Location: [address] [place] [address] 11/15/2024 12:18 PM CDT [facility] xR Result 1 QNS QNS - This report is being issued to report the results of gene rearrangement and altered splicing analysis from RNA sequencing. RNA sequencing analysis was not performed due to insufficient quantity and/or quality of RNA. 11/15/2024 12:18 PM CDT [facility] Germline Variant Note No potential germline variants were found in the limited set of genes on which we report. 11/15/2024 12:18 PM CDT [facility] Tissue specimen (specimen) 09/13/2024 7:32 AM CDT 10/12/2024 9:59 AM CDT Narrative This result has genomic variants that were not included in this document. us Dimitri Stiles MD MOLECULAR ORDERABLES Final Resu lt [facility] [address] [facility], [address] [place] [address], [facility] [address], [address] [place] [address] * COMPREHENSIVE METABOLIC PANEL (09/12/2024 2:10 PM CDT) Blood Dimitri Stiles MD CHEMISTRY ORDERABLES Final Resu lt * CBC WITH AUTODIFFERENTIAL (09/12/2024 1:58 PM CDT) Blood Dimitri Stiles MD HEMATOLOGY ORDERABLES Final Res ult * HEMOGLOBIN A1C (03/31/2022 7:19 AM CDT) HEMOGLOBIN A1C 5.4 <5.7 % of total Hgb [facility] Comment: For the purpose of screening for the presence of diabetes: <5.7% Consistent with the absence of diabetes 5.7-6.4% Consistent with increased risk for diabetes (prediabetes) > or =6.5% Consistent with diabetes This assay result is consistent with a decreased risk of diabetes. Currently, no consensus exists regarding use of hemoglobin A1c for diagnosis of diabetes in children. According to [place] Diabetes Association (ADA) guidelines, hemoglobin A1c <7.0% represents optimal control in non- diabetic patients. Different metrics may apply to specific patient populations. Standards of Medical Care in Diabetes(ADA). ESTIMATED AVERAGE GLUCOSE (MG/DL) 108 mg/dL [facility] ESTIMATED AVERAGE GLUCOSE (MMOL/L) 6.0 mmol/L [facility] Comment: Test Performed at: [facility] [address] [place] [address] Macro Roberto D.O., MPH Blood 03/31/2022 7:1 9 AM CDT 04/01/2022 8:27 AM CDT Shira Anguiano [employer] CHEMISTRY ORDERABLES F inal Result [facility] [phone] [facility] [address] [phone] from Last 3 Months or Most Recently Relevant to Health Maintenance Insurance [employer] * Guarantor: [employer]) Account Type Relation to Patient Date of Phone Billing Address Corporate Employer ATTN: [employer] [address] [address] [employer] Care Teams Broadcast Field Supervisor Relationship Specialty Start Date End Date Kelvin Aguilera DO [address] [place] [address] PCP - General Family Practice 12/19/23
--- OUTSIDE RECORDS SUMMARY | 2024-12-04 14:26 | XMS_ITS | Referral Summary ---
Author Organization [facility] Building [address] Address [address] [place] [address] Care Team Providers Care Search Engine Optimization Specialist Name Role Phone Yash Loza MD Primary [...] file Insurance [facility] Care Teams Search Engine Optimization Specialist Relationship Specialty Start Date End Date Yash Loza MD [address] [place] [address] [place] [address] PCP - General Family Medicine 12/16/20
--- OUTSIDE RECORDS SUMMARY | 2024-12-04 14:26 | XMS_ITS | Encounter Summary ---
Author Organization [facility] Address [address] [place] [address] Care Team Providers Care Boomswing Operator Name Role Phone AdenKelvin bullock Primary Care Provider [phone] Reason for Visit * Reason Comments Med Refill Encounter Details Date Type Department Care Team (Late Contact Info) Description 11/26/2024 Refill [facility] at Work [employer] [place] [address] [place] [address] Nori Abrams MD [address] [place] [address] Anxiety state Social History Tobacco Use Types Packs/Day Years [...] as of this encounter Plan of Treatment Upcoming Encounters Date Type Department Care Team (Late Contact Info) Description 12/05/2024 10:00 AM CDT Office Visit [facility] Oncology and Hematology - [place] [address] [facility] [address] [place] [address] Dimitri Stiles MD [address] [facility] [address] [place] [address] documented as of this encounter Visit Diagnoses Diagnosis Anxiety state Anxiety state, unspecified documented in this encounter Care Teams Boomswing Operator Relationship Specialty Start Date End Date Kelvin Aguilera DO [address] [place] [address] PCP - General Family Practice 12/19/23 documented as of this encounter
[2024-12-04 14:49] LABS: Hematocrit 42.4 % (42.0-52.0); Hemoglobin 14.2 g/dL (14.0-18.0); Immature Granulocyte Percent A 0.3 % (0-0.5); Lymphocytes Absolute Auto 2.84 K/mm3 (0.9-3.2); Mean Corpuscular HGB Conc 33.5 g/dl (32-36); Mean Corpuscular Hemoglobin 28.7 pg (26-34); Mean Corpuscular Volume 85.7 fl (80-100); Nucleated Red Blood Cells Absolute Auto 0.000 K/mm3 (0.0-0.012); Nucleated Red Blood Cells Perc 0.0 % (0.0-0.2); Platelet Count Result 288 k/mm3 (150-375); Red Blood Count 4.95 M/mm3 (4.6-6.20); White Blood Count 10.1 K/mm3 (4.5-10.0)
[2024-12-04 16:32] LABS: Alanine Aminotransferase 25 U/L (6-50); Albumin Level 4.6 g/dL (3.5-5.1); Alkaline Phosphatase 58 U/L (38-126); Anion Gap 8 mmol/L (4-12); Aspartate Amino Transferase 48 U/L (17-59); Bilirubin,Total 2.5 mg/dL (0.2-1.3); Blood Urea Nitrogen 11 mg/dL (9-20); Calcium 9.8 mg/dL (8.4-10.2); Carbon Dioxide 26 mmol/L (22-30); Chloride 100 mmol/L (98-107); Estimated Glomerular Filt Rate > 60; Glucose 115 mg/dL (65-110); Potassium 4.0 mmol/L (3.4-5.0); Sodium 134 mmol/L (137-145); Total Protein 7.4 g/dL (6.3-8.2)
[2024-12-04 17:03] LABS: Carcinoembryonic Antigen 3.5 ng/mL (0.0-3.0)
== END 2024-12-04 14:24 | disposition home or self-care (01) ==
LOC: ANHLAB 14:24
PROVIDERS: Visit Provider Internal Medicine Hematology & Oncology
DX: C18.9 Malignant neoplasm of colon, unspecified (principal)
CPT/HCPCS: 36415; 80053; 82378; 85025

== ENCOUNTER 2024-12-24 07:53 | Outpatient (CLI) | payer OTHER, SELFPAY ==
--- OUTSIDE RECORDS SUMMARY | 2024-12-24 07:55 | XMS_ITS | Clinical Summary ---
Author Organization [facility] [employer] [place] Address [address] [place] [address] [place] [address] Care Team Providers Care Board Of Education Secretary Name Role Phone Kelvin Aguilera DO Primary Care Provider [phone] Allergies No known active allergies Medications lisinopriL (PRINIVIL) 10 mg tabletIndicati ons:HTN (hypertension) , benign Take 1 Tablet (10 mg) by mouth daily. 90 Tablet 1 06/21/19 24 Active rosuvastatin (CRESTOR) 20 mg tablet take 1 tablet daily 90 Tablet 3 12/02/19 24 Active PARoxetine HCl (PAXIL) 10 mg tabletIndicati ons:Anxiety state take 1 tablet daily 90 Tablet 3 12/02/19 24 Active capecitabine (XELODA) 500 mg tablet TAKE 4 TABLETS OF 500 MG WITH 4 TABLETS OF 150 MG (TOTAL DOSE 2,600 MG) TWICE DAILY WITH MEALS FOR 14 DAYS ON, 7 DAYS OFF 112 Tablet 3 12/06/19 25 Active capecitabine (XELODA) 150 mg tablet TAKE 4 TABLETS OF 150 MG WITH 4 TABLETS OF 500 MG (TOTAL 2,600 MG) TWICE DAILY WITH MEALS FOR 14 DAYS ON, 7 DAYS OFF. TAKE ON DAYS 1 THROUGH 14 FOR A 21 DAY CYCLE (FOR 6 CYCLES) 112 Tablet 3 12/06/19 25 Active capecitabine (XELODA) 150 mg tablet TAKE 4 TABLETS OF 150 MG WITH 4 TABLETS OF 500 MG (TOTAL 2,600 MG) TWICE DAILY WITH MEALS FOR 14 DAYS ON, 7 DAYS OFF. TAKE ON DAYS 1 THROUGH 14 FOR A 21 DAY CYCLE (FOR 6 CYCLES) 112 Tablet 11/13/19 25 06/24/2 025 Discontinued capecitabine (XELODA) 500 mg tablet TAKE 4 TABLETS OF 500 MG WITH 4 TABLETS OF 150 MG (TOTAL DOSE 2,600 MG) TWICE DAILY WITH MEALS FOR 14 DAYS ON, 7 DAYS OFF 112 Tablet 11/13/19 25 025 Discontinued capecitabine (XELODA) 500 mg tablet TAKE 4 TABLETS OF 500 MG WITH 4 TABLETS OF 150 MG (TOTAL DOSE 2,600 MG) TWICE DAILY WITH MEALS FOR 14 DAYS ON, 7 DAYS OFF 112 Tablet 11/28/19 25 025 Discontinued(Re order) capecitabine (XELODA) 150 mg tablet TAKE 4 TABLETS OF 150 MG WITH 4 TABLETS OF 500 MG (TOTAL 2,600 MG) TWICE DAILY WITH MEALS FOR 14 DAYS ON, 7 DAYS OFF. TAKE ON DAYS 1 THROUGH 14 FOR A 21 DAY CYCLE (FOR 6 CYCLES) 112 Tablet 11/28/19 25 025 Discontinued Active Problems Problem Noted Date Diagnosed Date Generalized anxiety disorder 06/21/2023 YASMANI on CPAP 12/03/2022 Overview (12/03/2022): Severe on sleep study 2017. In Media Vitamin D deficiency 11/26/2022 Elevated bilirubin 11/26/2022 Overview (11/26/2022): Negative eval at hepatology consult 2021 Environmental and seasonal allergies 09/02/2021 Anxiety state 05/18/2019 HTN (hypertension), benign 05/18/2019 Hyperlipidemia Encounters Date Type Department Care Team Description 12/05/2024 10:00 AM CDT Office Visit [facility] Oncology and Hematology - [address] [place] [address] Dimitri Stiles MD Malignant neoplasm of colon, unspecified part of colon (CMS/HCC) (Primary Dx) 12/05/2024 Orders Only [facility] Oncology and Hematology - [address] [place] [address] Dimitri Stiles MD 12/04/2024 Orders Only [facility] Oncology and Hematology - [address] [place] [phone] Dimitri Stiles MD 11/27/2024 Refill [facility] Oncology and Hematology - [address] [place] [address] Dimitri Stiles MD 11/27/2024 Refill [facility] Oncology and Hematology - [address] [place] [address] Dimitri Stiles MD 11/26/2024 Refill [facility] Work [employer] [place] [address] [place] [phone] Nori Abrams MD [facility] 11/12/2024 Refill [facility] - [address] [place] [address] Dimitri Stiles MD 11/05/2024 8:45 AM CDT [facility] - [address] [place] [address] Dimitri Stiles MD Malignant neoplasm of colon, unspecified part of colon (CMS/HCC) (Primary Dx) 11/05/2024 Orders Only [facility] - [address] [place] [address] Dimitri Stiles MD 10/22/2024 Refill [facility] - [address] [place] [address] Dimitri Stiles MD 10/22/2024 Refill [facility] On[facility] - [address] [place] [address] Dimitri Stiles MD 10/16/2024 Specialty Pharmacy [facility] [address] [place] [phone] Sharon Curtis, PHARMACIST 10/12/2024 Specialty Pharmacy [facility] [address] [place] [phone] Sharon Curtis, PHARMACIST Specialty Pharmacy Refill Coordination 10/12/2024 Refill [facility] Oncology and Hematology - [address] [place] [address] Dimitri Stiles MD 10/12/2024 Specialty Pharmacy [facility] [address] [facility] [place] [phone] Sharon Curtis, PHARMACIST Specialty Pharmacy Prior Auth Coordination 10/11/2024 11:00 AM CDT Office Visit [facility] Oncology and Hematology - [address] [place] [address] Dimitri Stiles MD Malignant neoplasm of colon, unspecified part of colon (CMS/HCC) (Primary Dx) 10/11/2024 Orders Only [facility] Oncology and Hematology - [address] [place] [address] Dimitri Stiles MD 10/04/2024 Orders Only [facility] Oncology and Hematology - [address] [place] [address] Dimitri Stiles MD 10/03/2024 Orders Only [facility] Oncology and Hematology - [address] [place] [address] Dimitri Stiles MD from Last 3 Months Immunizations Immunization Administration Dates Next Due (ADACEL/BOOSTRIX)(10 YR UP) TDAP VACCINE, 0.5ML, IM 05/18/2019 (PFIZER)(12 YR UP) COVID-19 VACCINE - EMERGENCY USE AUTHORIZATION, MRNA, [id number](PF) 30 MCG/0.3 ML IM SUSP 11/11/2020,10/21/2020 INFLUENZA [...] Sign Reading Time Taken Comments Blood Pressure 120/89 12/05/2024 9:58 AM CDT Pulse 64 12/05/2024 9:58 AM CDT Temperature 36.5 C (97.7 F) 12/05/2024 9:58 AM CDT Respiratory Rate 16 12/05/2024 9:58 AM CDT Oxygen Saturation 98% 12/05/2024 9:58 AM CDT Inhaled Oxygen Concentration - - Weight 117.5 kg (259 lb) 12/05/2024 9:58 AM CDT Height 185.4 cm (6' 1) 09/12/2024 2:31 PM CDT Body Mass Index 34.17 09/12/2024 2:31 PM CDT Plan of Treatment Upcoming Encounters Date Type Department Care Team (Late st Contact Info) Description 01/17/2025 11:15 AM CDT Office Visit [facility] Oncology and Hematology - [address] [facility] [address] [place] [address] Dimitri Stiles MD [address] [facility] [address] [place] [address] Health Maintenance Due Date Last Done Comments HPV VACCINES (1 - Male 3-dos e series) 1994 HEPATITIS B VACCINES (1 of 3 - 19+ 3-dose series) 1998 COVID-19 Vaccine (3 - 2023-2 5 season) 2024 11/11/2020, 10/21/2020 INFLUENZA VACCINE (#1) 2025 , 03/17/2023, 03/25/2021, Additional history exists Pre-Diabetes and Diabetes Screening 03/31/2025 03/31/2022, 09/02/2021, 05/21/2020 DTAP/TDAP/TD VACCINES (2 - T d or Tdap) 05/18/2029 05/18/2019 Procedures Procedure Name Priority Date/Time Associated Diagnosis Comments CBC WITH DIFFERENTIAL Routine 12/04/2024 5:34 PM CDT COMPREHENSIVE METABOLIC PANEL Routine 12/04/2024 10:35 AM CDT BASIC METABOLIC PANEL Routine 11/05/2024 2:18 PM CDT CBC WITH DIFFERENTIAL Routine 11/05/2024 2:16 PM CDT PET BONE IMG W CT SKL BSE MID THG Routine 10/02/2024 3:14 PM CDT PET BONE IMG W CT SKL BSE MID THG Routine 10/02/2024 9:19 AM CDT GLUCOSE LEVEL Routine 10/02/2024 8:25 AM CDT HEMOGLOBIN A1C Routine 03/31/2022 7:19 AM CDT Screening for condition from Last 3 Months or Most Recently Relevant to Health Maintenance Results * CBC WITH DIFFERENTIAL (12/04/2024 5:34 PM CDT) Only the most recent of2 resultswithin the time period is included. Blood Dimitri Stiles MD HEMATOLOGY ORDERABLES Final Res ult * COMPREHENSIVE METABOLIC PANEL (12/04/2024 10:35 AM CDT) Blood Dimitri Stiles MD CHEMISTRY ORDERABLES Final Resu lt * BASIC METABOLIC PANEL (11/05/2024 2:18 PM CDT) Blood Dimitri Stiles MD CHEMISTRY ORDERABLES Final Resu lt * PET BONE IMG W CT SKB MDTH (10/02/2024 3:14 PM CDT) Only the most recent of2 resultswithin the time period is included. Anatomical Region Laterality Modality Positron Emissio n Tomography (PET) Dimitri Stiles MD PE ORDERABLES Final Result * GLUCOSE LEVEL (10/02/2024 8:25 AM CDT) Blood Dimitri Stiles MD CHEMISTRY ORDERABLES Final Resu lt * HEMOGLOBIN A1C (03/31/2022 7:19 AM CDT) HEMOGLOBIN A1C 5.4 <5.7 % of total Hgb [facility] Comment: For the purpose of screening for the presence of diabetes: <5.7% Consistent with the absence of diabetes 5.7-6.4% Consistent with increased risk for diabetes (prediabetes) > or =6.5% Consistent with diabetes This assay result is consistent with a decreased risk of diabetes. Currently, no consensus exists regarding use of hemoglobin A1c for diagnosis of diabetes in children. According to [place] Diabetes Association (ADA) guidelines, hemoglobin A1c <7.0% represents optimal control in non- diabetic patients. Different metrics may apply to specific patient populations. Standards of Medical Care in Diabetes(ADA). ESTIMATED AVERAGE GLUCOSE (MG/DL) 108 mg/dL [facility] ESTIMATED AVERAGE GLUCOSE (MMOL/L) 6.0 mmol/L [facility] Comment: Test Performed at: [facility] [address] [place] [address] Marco Roberto D.O., MPH Blood 03/31/2022 7:19 AM CDT 04/01/2022 8:27 AM CDT Shira Anguiano QUALITY LIAISON CHEMISTRY ORDERABLES F inal Result [facility] [phone] 3 day [facility] [address] [place] [address] from Last 3 Months or Most Recently Relevant to Health Maintenance Insurance [employer] OPEN ACCESS [employer] * Guarantor: MICHELLE MILLER[employer] A MOHSEN Landers (C) Account Type Relation to Patient Date of Phone Billing Address Corporate Employer ATTN: LIBERTAD QUIÑONES [address] [address] ALLEGIANCE OPEN ACCESS Care Teams Board Of Education Secretary Relationship Specialty Start Date End Date Kelvin Aguilera DO [address] [place] [address] PCP - General Family Practice 12/19/23
--- OUTSIDE RECORDS SUMMARY | 2024-12-24 07:55 | XMS_ITS | Referral Summary ---
Author Organization [facility] Address [address] [place] [address] Care Team Providers Care Commercial Lease Administrator Name Role Phone Yash Loza MD Primary [...] Plan of Treatment Not on file Insurance [facility] H[facility]/PPO Address: [address] [phone] Care Teams Commercial Lease Administrator Relationship Specialty Start Date End Date Yash Loza MD [address] [place] [address] [place] [address] PCP - General Family Medicine 12/16/20
--- OUTSIDE RECORDS SUMMARY | 2024-12-24 07:55 | XMS_ITS | Clinical Summary ---
Author Organization [facility] Address [address] [place] [address] Care Team Providers Care Hr Analyst Name Role Phone Yash Loza MD [...] Plan of Treatment Not on file Insurance [facility] Care Teams Hr Analyst Relationship Specialty Start Date End Date Yash Loza MD [address] [place] [address] [place] [address] PCP - General Family Medicine 12/16/20
== END 2024-12-24 07:54 | disposition home or self-care (01) ==
PROVIDERS: PCP Family Medicine; Visit Provider Otolaryngology
DX: H65.21 Chronic serous otitis media, right ear (principal); H90.0 Conductive hearing loss, bilateral
CPT/HCPCS: 92557; 92567

== ENCOUNTER 2025-01-16 08:05 | Outpatient (CLI) | payer OTHER, SELFPAY ==
--- OUTSIDE RECORDS SUMMARY | 2025-01-16 08:07 | XMS_ITS | Clinical Summary ---
Author Organization [facility] Address [address] [place] [address] Care Team Providers Care Sas Developer Analyst Name Role Phone Yash Loza MD [...] Plan of Treatment Not on file Insurance [facility] Care Teams Sas Developer Analyst Relationship Specialty Start Date End Date Yash Loza MD [address] [place] [address] [place] [address] PCP - General Family Medicine 12/16/20
--- OUTSIDE RECORDS SUMMARY | 2025-01-16 08:07 | XMS_ITS | Clinical Summary ---
Author Organization [facility] [employer] [place] Address [address] [place] [address] [place] [address] Care Team Providers Care Data Support Analyst Name Role Phone Kelvin Aguilera DO Primary Care Provider [phone] Allergies No known active allergies Medications lisinopriL (PRINIVIL) 10 mg tabletIndicatio ns:HTN (hypertension), benign Take 1 Tablet (10 mg) by mouth daily. 90 Tablet 1 06/21/2023 Active rosuvastatin (CRESTOR) 20 mg tablet take 1 tablet daily 90 Tablet 3 12/02/2023 Active PARoxetine HCl (PAXIL) 10 mg tabletIndicatio ns:Anxiety state take 1 tablet daily 90 Tablet 3 12/02/2023 Active capecitabine (XELODA) 500 mg tablet TAKE 4 TABLETS OF 500 MG WITH 4 TABLETS OF 150 MG (TOTAL DOSE 2,600 MG) TWICE DAILY WITH MEALS FOR 14 DAYS ON, 7 DAYS OFF 112 Tablet 3 12/05/2024 Active capecitabine (XELODA) 150 mg tablet TAKE 4 TABLETS OF 150 MG WITH 4 TABLETS OF 500 MG (TOTAL 2,600 MG) TWICE DAILY WITH MEALS FOR 14 DAYS ON, 7 DAYS OFF. TAKE ON DAYS 1 THROUGH 14 FOR A 21 DAY CYCLE (FOR 6 CYCLES) 112 Tablet 3 12/05/2024 Active Active Problems Problem Noted Date Diagnosed Date Generalized anxiety disorder 06/21/2023 YASMANI on CPAP 12/03/2022 Overview (12/03/2022): Severe on sleep study 2017. In Media Vitamin D deficiency 11/26/2022 Elevated bilirubin 11/26/2022 Overview (11/26/2022): Negative eval at hepatology consult 2021 Environmental and seasonal allergies 09/02/2021 Anxiety state 05/18/2019 HTN (hypertension), benign 05/18/2019 Hyperlipidemia Encounters Date Type Department Care Team Description 01/01/2025 External Device Data [facility] ABSTRACTION Provider, Abstract 12/05/2024 10:00 AM CDT Office Visit [facility] Oncology and Hematology - [address] [place] [address] Dimitri Stiles MD Malignant neoplasm of colon, unspecified part of colon (CMS/HCC) (Primary Dx) 12/05/2024 Orders Only [facility] Oncology and Hematology - [address] [place] [address] Dimitri Stiles MD 12/04/2024 Orders Only [facility] Oncology and Hematology - [address] [place] [address] Dimitri Stiles MD 11/27/2024 Refill [facility] Oncology and Hematology - [address] [place] [phone] Dimitri Stiles MD 11/27/2024 Refill [facility] Oncology and Hematology - [address] [place] [phone] Dimitri Stiles MD 11/26/2024 Refill [facility] at Work [employer] [place] [address] [place] [address] Nori Abrams MD Anxiety state 11/12/2024 Refill [facility] Oncology and Hematology - [address] [place] [phone] Dimitri Stiles MD 11/05/2024 8:45 AM CDT Office Visit [facility] Oncology and Hematology - [address] [place] [phone] Dimitri Stiles MD Malignant neoplasm of colon, unspecified part of colon (CMS/HCC) (Primary Dx) 11/05/2024 Orders Only [facility] Oncology and Hematology - [address] [place] [address] Dimitri Stiles MD 10/22/2024 Refill [facility] Oncology and Hematology - [address] [place] [address] Dimitri Stiles MD 10/22/2024 Refill [facility] Oncology and Hematology - [address] [place] [address] Dimitri Stiles MD 10/16/2024 Specialty Pharmacy [facility] Specialty [facility] [place] [address] Sharon Curtis, PHARMACIST from Last 3 Months Immunizations Immunization Administration Dates Next Due (ADACEL/BOOSTRIX)(10 YR UP) TDAP VACCINE, 0.5ML, IM 05/18/2019 (PFIZER)(12 YR UP) COVID-19 VACCINE - EMERGENCY USE AUTHORIZATION, MRNA, [id number](PF) 30 MCG/0.3 ML IM SUSP 11/11/2020,10/21/2020 INFLUENZA [...] Description 01/17/2025 11:15 AM CDT Office Visit [facility] Oncology and Hematology [facility] [address] [facility] [address] [place] [address] Dimitri Stiles MD [address] [facility] [address] [place] [address] Health Maintenance Due Date Last Done Comments HEPATITIS B VACCINES (1 of 3 - 19+ 3-dose series) 1998 COVID-19 Vaccine (3 - season) 2024 11/11/2020, 10/21/2020 Preventative Visit- Commercial [...] WITH DIFFERENTIAL Routine 11/05/2024 2:16 PM CDT HEMOGLOBIN A1C Routine 03/31/2022 7:19 AM CDT Screening for condition from Last 3 Months or Most Recently Relevant to Health Maintenance Results * CBC WITH DIFFERENTIAL (12/04/2024 5:34 PM CDT) Only the most recent of2 resultswithin the time period is included. Blood us Dimitri Stiles MD HEMATOLOGY ORDERABLES Final Res ult * COMPREHENSIVE METABOLIC PANEL (12/04/2024 10:35 AM CDT) Blood us Dimitri Stiles MD CHEMISTRY ORDERABLES Final Resu lt * BASIC METABOLIC PANEL (11/05/2024 2:18 PM CDT) Blood us Dimitri Stiles MD CHEMISTRY ORDERABLES Final Resu lt * HEMOGLOBIN A1C (03/31/2022 7:19 AM CDT) HEMOGLOBIN A1C 5.4 <5.7 % of total Hgb [facility] Comment: For the purpose of screening for the presence of diabetes: <5.7% Consistent with the absence of diabetes 5.7-6.4% Consistent with increased risk for diabetes (prediabetes) > or =6.5% Consistent with diabetes This assay result is consistent with a decreased risk of diabetes. Currently, no consensus exists regarding use of hemoglobin A1c for diagnosis of diabetes in children. According to [place] Diabetes Association (ADA) guidelines, hemoglobin A1c <7.0% represents optimal control in non- diabetic patients. Different metrics may apply to specific patient populations. Standards of Medical Care in Diabetes(ADA). ESTIMATED AVERAGE GLUCOSE (MG/DL) 108 mg/dL [facility] ESTIMATED AVERAGE GLUCOSE (MMOL/L) 6.0 mmol/L [facility] Comment: Test Performed at: [facility] [address] [address] Marco Roberto D.O., MPH Blood 03/31/2022 7:19 AM CDT 04/01/2022 8:27 AM CDT Shira Anguiano AS400 ANALYST CHEMISTRY ORDERABLES F inal Result [facility] [phone] [facility] [address] [phone] from Last 3 Months or Most Recently Relevant to Health Maintenance Insurance [employer] OPEN ACCESS RX [employer] * Guarantor: [employer] D (C) Account Type Relation to Patient Date of Phone Billing Address Corporate Employer ATTN: LIBERTAD QUIÑONES [address] [address] ALLEGIANCE OPEN ACCESS Care Teams Data Support Analyst Relationship Specialty Start Date End Date Kelvin Aguilera DO [address] [place] [address] PCP - General Family Practice 12/19/23
[2025-01-16 08:26] LABS: Hematocrit 43.2 % (42.0-52.0); Hemoglobin 14.8 g/dL (14.0-18.0); Immature Granulocyte Percent A 0.6 % (0-0.5); Lymphocytes Absolute Auto 2.20 K/mm3 (0.9-3.2); Mean Corpuscular HGB Conc 34.3 g/dl (32-36); Mean Corpuscular Hemoglobin 29.9 pg (26-34); Mean Corpuscular Volume 87.3 fl (80-100); Nucleated Red Blood Cells Absolute Auto 0.000 K/mm3 (0.0-0.012); Nucleated Red Blood Cells Perc 0.0 % (0.0-0.2); Platelet Count Result 282 k/mm3 (150-375); Red Blood Count 4.95 M/mm3 (4.6-6.20); White Blood Count 7.0 K/mm3 (4.5-10.0)
[2025-01-16 09:16] LABS: Alanine Aminotransferase 32 U/L (6-50); Albumin Level 4.6 g/dL (3.5-5.1); Alkaline Phosphatase 69 U/L (38-126); Anion Gap 8 mmol/L (4-12); Aspartate Amino Transferase 38 U/L (17-59); Bilirubin,Total 3.2 mg/dL (0.2-1.3); Blood Urea Nitrogen 14 mg/dL (9-20); Calcium 9.5 mg/dL (8.4-10.2); Carbon Dioxide 23 mmol/L (22-30); Chloride 103 mmol/L (98-107); Estimated Glomerular Filt Rate > 60; Glucose 111 mg/dL (65-110); Potassium 4.3 mmol/L (3.4-5.0); Sodium 134 mmol/L (137-145); Total Protein 7.3 g/dL (6.3-8.2)
[2025-01-16 09:52] LABS: Carcinoembryonic Antigen 3.9 ng/mL (0.0-3.0)
== END 2025-01-16 08:06 | disposition home or self-care (01) ==
LOC: ANHLAB 08:06
PROVIDERS: PCP Family Medicine; Visit Provider Internal Medicine Hematology & Oncology
DX: C18.9 Malignant neoplasm of colon, unspecified (principal)
CPT/HCPCS: 36415; 80053; 82378; 85025

== ENCOUNTER 2025-03-12 09:54 | Outpatient (CLI) | payer OTHER, SELFPAY ==
--- NOTE | ~2025-03-12 | CT_ITS ---
EXAMINATION: CT abdomen pelvis w con DATE: 03/12/2025 10:18 INDICATION: Malignant neoplasm of colon. TECHNIQUE: Computed tomography (CT) of the abdomen and pelvis was performed with 100 mL Omnipaque 350 intravenous contrast. Automated exposure control and iterative reconstruction technique were employed. The dose-length product was 1038.03 mGy-cm. COMPARISON: CT abdomen and pelvis 08/01/2024 FINDINGS: The visualized portions of the lung bases demonstrate mild atelectasis. There are two stable 3 mm nodules in left lower lobe. There is a stable 12 mm nodule in right lower lobe. No pleural effusion. The heart size is normal. No pericardial effusion. There is diffuse hepatic steatosis. There are cysts in the liver measuring up to 7 mm. There is a chronic 8 mm hypodense mass in the spleen, likely a cyst or granulomatous disease. The gallbladder, pancreas, adrenal glands, and kidneys are normal. There is an anastomosis in the sigmoid colon. There are no dilated loops of bowel. The appendix is normal. There are no pathologically enlarged lymph nodes. There is no free intraperitoneal fluid. There are chronic bilateral L5 pars defects. There is 4 mm anterolisthesis of L5 on S1. There is mild thoracic spondylosis and moderate lower lumbar spondylosis. IMPRESSION: 1. Pulmonary nodules measuring up to 12 mm, stable from 08/01/2014, likely benign. Consider noncontrast chest CT in one year. Reviewed, dictated and finalized at location E. IMPRESSION: 1. Pulmonary nodules measuring up to 12 mm, stable from 08/01/2014, likely benig n. Consider noncontrast chest CT in one year.
--- OUTSIDE RECORDS SUMMARY | 2025-03-12 10:40 | XMS_ITS | Clinical Summary ---
Author Organization [facility] Address [address] [place] [address] Care Team Providers Care Soil Chemist Name Role Phone Yash Loza MD Primary [...] Plan of Treatment Not on file Insurance [facility] H[facility]/PPO Address: [address] [address] Care Teams Soil Chemist Relationship Specialty Start Date End Date Yash Loza MD [address] [place] [address] [place] [address] PCP - General Family Medicine 12/16/20
--- OUTSIDE RECORDS SUMMARY | 2025-03-12 10:40 | XMS_ITS | Clinical Summary ---
Author Organization [facility] [place] Address [address] [place] [address] [place] [address] Care Team Providers Care Skills Instructor Name Role Phone Kelvin Aguilera DO Primary Care Provider [phone] Allergies No known active allergies Medications lisinopriL [...] Encounters Date Type Department Care Team Description 02/20/2025 External Device Data STL ABSTRACTION Provider, Abstract 01/17/2025 11:15 AM CDT Office Visit [facility] Oncology and Hematology [facility] [address] [place] [address] Dimitri Stiles MD Malignant neoplasm of colon, unspecified part of colon (CMS/HCC) (Primary Dx) 01/16/2025 Orders Only [facility] Oncology [facility] [address] [place] [address] Dimitri Stiles MD 01/01/2025 External Device Data STL ABSTRACTION Provider, Abstract from Last 3 Months Immunizations Immunization Administration Dates Next Due (ADACEL/BOOSTRIX)(10 YR UP) TDAP VACCINE, 0.5ML, IM 05/18/2019 (PFIZER)(12 YR UP) COVID-19 VACCINE - EMERGENCY USE AUTHORIZATION, MRNA, [id number](PF) 30 MCG/0.3 ML IM SUSP 11/11/2020,10/21/2020 INFLUENZA [...] Sign Reading Time Taken Comments Blood Pressure 140/83 01/17/2025 11:06 AM CDT Pulse 70 01/17/2025 11:06 AM CDT Temperature 36.1 C (96.9 F) 01/17/2025 11:06 AM CDT Respiratory Rate 15 01/17/2025 11:0 6 AM CDT Oxygen Saturation 98% 01/17/2025 11: 06 AM CDT Inhaled Oxygen Concentration - - Weight 119.7 kg (263 lb 12.8 oz) 2024 11:06 AM CDT Height 185.4 cm (6' 1) 09/12/2024 2:31 PM CDT Body Mass Index 34.8 09/12/2024 2:31 PM CDT Plan of Treatment Upcoming Encounters Date Type Department Care Team (Late st Contact Info) Description 03/19/2025 11:30 AM CDT Office Visit [facility] Oncology and Hematology [facility] [address] [facility] [address] [place] [address] Dimitri Stiles MD [address] [facility] [address] [place] [address] Health Maintenance Due Date Last Done Comments HEPATITIS B VACCINES (1 of 3 - 19+ 3-dose series) 1998 INFLUENZA VACCINE (#1) 2025 , 03/17/2023, 03/25/2021, Additional history exists COVID-19 Vaccine ( season) 2025 11/11/2020, 10/21/2020 Pre-Diabetes and Diabetes Screening 03/31/2025 03/31/2022, 09/02/2021, 05/21/2020 DTAP/TDAP/TD VACCINES (2 - Td or Tdap) 05/18/2029 05/18/2019 HPV VACCINES Aged Out No longer eligi ble based on patient's age to complete this topic Procedures Procedure Name Priority Date/Time Associated Diagnosis Comments COMPREHENSIVE METABOLIC PANEL Routine 01/16/2025 12:34 PM CDT CBC WITH AUTODIFFERENTIAL Routine 01/16/2025 12:27 PM CDT HEMOGLOBIN A1C Routine 03/31/2022 7:19 AM CDT Screening for condition from Last 3 Months or Most Recently Relevant to Health Maintenance Results * COMPREHENSIVE METABOLIC PANEL (01/16/2025 12:34 PM CDT) Blood Dimitri Stiles MD CHEMISTRY ORDERABLES Final Resu lt * CBC WITH AUTODIFFERENTIAL (01/16/2025 12:27 PM CDT) Blood Dimitri Stiles MD HEMATOLOGY ORDERABLES Final Res ult * HEMOGLOBIN A1C (03/31/2022 7:19 AM CDT) HEMOGLOBIN A1C 5.4 <5.7 % of total Hgb [facility] Comment: For the purpose of screening for the presence of diabetes: <5.7% Consistent with the absence of diabetes 5.7-6.4% Consistent with increased risk for diabetes (prediabetes) > or =6.5% Consistent with diabetes This assay result is consistent with a decreased risk of diabetes. Currently, no consensus exists regarding use of hemoglobin A1c for diagnosis of diabetes in children. According to [place] Diabetes Association (ADA) guidelines, hemoglobin A1c <7.0% represents optimal control in non- diabetic patients. Different metrics may apply to specific patient populations. Standards of Medical Care in Diabetes(ADA). ESTIMATED AVERAGE GLUCOSE (MG/DL) 108 mg/dL [facility] ESTIMATED AVERAGE GLUCOSE (MMOL/L) 6.0 mmol/L [facility] Comment: Test Performed at: [facility] [id number] [id number] Marco Roberto D.O., MPH Blood 03/31/2022 7:19 AM CDT 04/01/2022 8:27 AM CDT Shira Anguiano [facility] CHEMISTRY ORDERABLES F inal Result [facility] [phone] [facility] [id number] [phone] from Last 3 Months or Most Recently Relevant to Health Maintenance Insurance [employer] OPEN ACCESS [employer] * Guarantor: [employer]LD WORK[employer] THRU D (C) Account Type Relation to Patient Date of Phone Billing Address Corporate Employer ATTN: [employer] [address] [address] [employer] OPEN ACCESS Care Teams Skills Instructor Relationship Specialty Start Date End Date Kelvin Aguilera DO [address] [place] [address] PCP - General Family Practice 12/19/23
== END 2025-03-12 09:55 | disposition home or self-care (01) ==
PROVIDERS: PCP Family Medicine; Visit Provider Internal Medicine Hematology & Oncology
DX: C18.9 Malignant neoplasm of colon, unspecified (principal); R91.8 Other nonspecific abnormal finding of lung field
CPT/HCPCS: 74177; Q9967

== ENCOUNTER 2025-03-18 09:44 | Outpatient (CLI) | payer OTHER, SELFPAY ==
[2025-03-18 10:13] LABS: Hematocrit 44.7 % (42.0-52.0); Hemoglobin 15.0 g/dL (14.0-18.0); Immature Granulocyte Percent A 0.5 % (0-0.5); Lymphocytes Absolute Auto 2.22 K/mm3 (0.9-3.2); Mean Corpuscular HGB Conc 33.6 g/dl (32-36); Mean Corpuscular Hemoglobin 30.9 pg (26-34); Mean Corpuscular Volume 92.2 fl (80-100); Nucleated Red Blood Cells Absolute Auto 0.000 K/mm3 (0.0-0.012); Nucleated Red Blood Cells Perc 0.0 % (0.0-0.2); Platelet Count Result 227 k/mm3 (150-375); Red Blood Count 4.85 M/mm3 (4.6-6.20); White Blood Count 7.8 K/mm3 (4.5-10.0)
--- OUTSIDE RECORDS SUMMARY | 2025-03-18 10:30 | XMS_ITS | Encounter Summary ---
Author Organization [facility] Address [address] [place] [address] Care Team Providers Care Sql Server Architect Name Role Phone AdenKelvin bullock Primary Care Provider [phone] Encounter Details Date Type Department Care Team ([facility] Contact Info) Description 03/13/2025 Orders Only [facility] Oncology and Hematology - [address] [place] [address] Dimitri Stiles MD [facility] [employer] [address] [place] [address] Social History Tobacco Use Types Packs/Day Years [...] Department Care Team (Late Contact Info) Description 03/19/2025 11:30 AM CDT Office Visit [facility] Oncology and Hematology - [address] [place] [address] Dimitri Stiles MD [address] [place] [address] documented as of this encounter Procedures Procedure Name Priority Date/Time Associated Diagnosis Comments CT ABDOMEN PELVIS W CONTRAST Routine 03/12/2025 10:37 AM CDT documented in this encounter Results * CT ABDOMEN PELVIS W CONTRAST (03/12/2025 10:37 AM CDT) Anatomical Region Laterality Modality Abdomen Computed Tomogra phy Dimitri Stiles MD CT ORDERABLES Final Result documented in this encounter Visit Diagnoses Not on filedocumented in this encounter Care Teams Sql Server Architect Relationship Specialty Start Date End Date Kelvin Aguilera DO [address] [place] [address] PCP - General Family Practice 12/19/23 documented as of this encounter
--- OUTSIDE RECORDS SUMMARY | 2025-03-18 10:30 | XMS_ITS | Clinical Summary ---
Author Organization [facility] Address [address] [place] [address] Care Team Providers Care R Developer Name Role Phone Yash Loza MD Primary [...] Plan of Treatment Not on file Insurance [facility] Care Teams R Developer Relationship Specialty Start Date End Date Yash Loza MD [address] [place] [address] [place] [address] PCP - General Family Medicine 12/16/20
--- OUTSIDE RECORDS SUMMARY | 2025-03-18 10:30 | XMS_ITS | Clinical Summary ---
Author Organization [facility] [employer] [place] Address [address] [place] [address] [place] [address] Care Team Providers Care Hand Ii Blocker Name Role Phone Kelvin Aguilera DO Primary [...] Encounters Date Type Department Care Team Description 03/13/[address] [facility] Oncology and Hematology [facility] [address] [place] [address] Dimitri Stiles MD 02/20/2025 External Device Data STL ABSTRACTION Provider, Abstract 01/17/2025 11:15 AM CDT Office Visit [facility] Oncology and Hematology [facility] [address] [place] [address] Dimitri Stiles MD Malignant neoplasm of colon, unspecified part of colon (CMS/HCC) (Primary Dx) 01/16/[address] [facility] Oncology and Hematology [facility] [address] [place] [address] Dimitri Stiles MD 01/01/2025 External Device Data STL ABSTRACTION Provider, Abstract from Last 3 Months Immunizations Immunization Administration Dates Next Due (ADACEL/BOOSTRIX)(10 YR UP) TDAP VACCINE, 0.5ML, IM 05/18/2019 (PFIZER)(12 YR UP) COVID-19 VACCINE - EMERGENCY USE AUTHORIZATION, MRNA, [id number](PF) 30 MCG/0.3 ML IM SUSP 11/11/2020,10/21/2020 INFLUENZA [...] Description 03/19/2025 11:30 AM CDT Office Visit [facility] Oncology and Hematology - [address] [facility] [address] [place] [address] Dimitri Stiles MD [address] [facility] [address] [place] [address] Health Maintenance Due Date Last Done Comments HEPATITIS B VACCINES (1 of 3 - 19+ 3-dose series) 1998 Preventative Visit- Commercial 06/06/2024 INFLUENZA VACCINE (#1) 2025 , 03/17/2023, 03/25/2021, Additional history exists COVID-19 Vaccine (2024- season) 2025 11/11/2020, 10/21/2020 Pre-Diabetes and Diabetes Screening 03/31/2025 03/31/2022, 09/02/2021, 05/21/2020 DTAP/TDAP/TD VACCINES (2 - Td or Tdap) 05/18/2029 05/18/2019 HPV VACCINES Aged Out No longer eligi ble based on patient's age to complete this topic Procedures Procedure Name Priority Date/Time Associated Diagnosis Comments CT ABDOMEN PELVIS W CONTRAST Routine 03/12/2025 10:37 AM CDT COMPREHENSIVE METABOLIC PANEL Routine 01/16/2025 12:34 PM CDT CBC WITH AUTODIFFERENTIAL Routine 01/16/2025 12:27 PM CDT HEMOGLOBIN A1C Routine 03/31/2022 7:19 AM CDT Screening for condition from Last 3 Months or Most Recently Relevant to Health Maintenance Results * CT ABDOMEN PELVIS W CONTRAST (03/12/2025 10:37 AM CDT) Anatomical Region Laterality Modality Abdomen Computed Tomogra phy us Dimitri Stiles MD CT ORDERABLES Final Result * COMPREHENSIVE METABOLIC PANEL (01/16/2025 12:34 PM CDT) Blood us Dimitri Stiles MD CHEMISTRY ORDERABLES Final Resu lt * CBC WITH AUTODIFFERENTIAL (01/16/2025 12:27 PM CDT) Blood us Dimitri Stiles MD [...] diagnosis of diabetes in children. According to [place] Diabetes Association (ADA) guidelines, hemoglobin A1c <7.0% represents optimal control in non- diabetic patients. Different metrics may apply to specific patient populations. Standards of Medical Care in Diabetes(ADA). ESTIMATED AVERAGE GLUCOSE (MG/DL) 108 mg/dL [facility] ESTIMATED AVERAGE GLUCOSE (MMOL/L) 6.0 mmol/L [facility] Comment: Test Performed at: [facility] [address] [id number] Marco Roberto D.O., MPH Blood 03/31/2022 7:19 AM CDT 04/01/2022 8:27 AM CDT Shira Anguiano FIRE APPARATUS ENGINEER CHEMISTRY ORDERABLES F inal Result [facility] [phone] [facility] [id number] [phone] from Last 3 Months or Most Recently Relevant to Health Maintenance [facility] [employer] * Guarantor: OLD WORKFLOW[employer] A THRU D (C) Account Type Relation to Patient Date of Phone Billing Address Corporate Employer ATTN: [employer] [address] [address] [employer] OPEN ACCESS Care Teams Hand Ii Blocker Relationship Specialty Start Date End Date Kelvin Aguilera DO [address] [place] [address] PCP - General Family Practice 12/19/23
[2025-03-18 10:33] LABS: Alanine Aminotransferase 30 U/L (6-50); Albumin Level 4.5 g/dL (3.5-5.1); Alkaline Phosphatase 62 U/L (38-126); Anion Gap 8 mmol/L (4-12); Aspartate Amino Transferase 32 U/L (17-59); Bilirubin,Total 1.9 mg/dL (0.2-1.3); Blood Urea Nitrogen 11 mg/dL (9-20); Calcium 9.4 mg/dL (8.4-10.2); Carbon Dioxide 23 mmol/L (22-30); Chloride 105 mmol/L (98-107); Estimated Glomerular Filt Rate > 60; Glucose 101 mg/dL (65-110); Potassium 4.7 mmol/L (3.4-5.0); Sodium 136 mmol/L (137-145); Total Protein 7.2 g/dL (6.3-8.2)
[2025-03-18 11:08] LABS: Carcinoembryonic Antigen 3.7 ng/mL (0.0-3.0)
== END 2025-03-18 09:45 | disposition home or self-care (01) ==
LOC: ANHLAB 09:46
PROVIDERS: PCP Family Medicine; Visit Provider Internal Medicine Hematology & Oncology
DX: C18.9 Malignant neoplasm of colon, unspecified (principal); I10 Essential (primary) hypertension
CPT/HCPCS: 36415; 80053; 82378; 85025

== ENCOUNTER 2025-05-22 09:19 | Outpatient (CLI) | payer OTHER, SELFPAY ==
[2025-05-22 09:30] LABS: Hematocrit 48.3 % (40.0-54.0); Hemoglobin 16.0 g/dL (14.0-18.0); Immature Granulocyte Percent A 0.5 % (0.0-0.0); Lymphocytes Absolute Auto 2.26 K/mm3 (1.10-4.50); Mean Corpuscular HGB Conc 33.1 g/dL (32-36); Mean Corpuscular Hemoglobin 29.1 pg (27.0-31.0); Mean Corpuscular Volume 87.8 fL (78.0-102.0); Nucleated Red Blood Cells Absolute Auto 0.00 K/mm3 (0.00-0.00); Nucleated Red Blood Cells Perc 0.0 % (0-0.0); Platelet Count Result 264 K/mm3 (150-420); Red Blood Count 5.50 M/mm3 (4.70-6.10); White Blood Count 8.1 K/mm3 (4.8-10.8)
[2025-05-22 09:43] LABS: Hemoglobin A1C 5.2 % (<5.7)
[2025-05-22 10:01] LABS: Alanine Aminotransferase 32 U/L (6-50); Albumin Level 4.6 g/dL (3.5-5.1); Alkaline Phosphatase 66 U/L (38-126); Anion Gap 10 mmol/L (4-12); Aspartate Amino Transferase 26 U/L (17-59); Bilirubin,Total 1.6 mg/dL (0.2-1.3); Blood Urea Nitrogen 7 mg/dL (9-20); Calcium 9.7 mg/dL (8.4-10.2); Carbon Dioxide 26 mmol/L (22-30); Chloride 103 mmol/L (98-107); Cholesterol 142 mg/dL (0-200); Estimated Glomerular Filt Rate > 60; Glucose 103 mg/dL (65-110); HDL Direct 55 mg/dL; Osmolality Calculated 286 mOsm/kg (285-295); Potassium 4.5 mmol/L (3.4-5.0); Sodium 139 mmol/L (137-145); Total Protein 6.9 g/dL (6.3-8.2); Triglycerides 127 mg/dL (<150)
--- OUTSIDE RECORDS SUMMARY | 2025-05-22 10:19 | XMS_ITS | Clinical Summary ---
Author Organization [facility] Address [address] [place] [address] Care Team Providers Care Aircraft Engine Technician Name Role Phone Yash Loza MD Primary Care Provider Allergies No known active allergies Medications atenoloL (TENORMIN) 50 mg tablet Take 50 mg by mouth daily 08/19/2020 Active PARoxetine (PAXIL) 10 mg tablet Take 10 mg by mouth daily 10/23/2020 Active rosuvastatin (CRESTOR) 20 mg tablet Take 20 mg by mouth daily 08/19/2020 Active Active Problems No known active problems Encounters Date Type Department Care Team Description 04/17/2025 Orders Only [facility] Medicine Pathology Outreach [address] [place] [address] Unknown, Notinfile from Last 3 Months Surgical History Surgery Date Site/Laterality Comments SHOULDER [...] 02/03/2021 11:05 AM CDT Plan of Treatment Health Maintenance Due Date Last Done Comments Colon Cancer Screening-Colonoscopy 1980 Depression Screening 1980 Hepatitis C Screening 1979 Hepatitis B Screening 1997 Regular Well Visit/Exam 18-64 1997 Covid-19 Vaccine ( season) 2025 11/11/2020, 10/21/2020 DTaP/Tdap/Td Vaccine (4 - Td or Tdap) 05/18/2029 05/18/2019, 01/14/1997, 01/12/1984, Additional history exists Influenza Vaccine Completed 04/05/2025, , 03/17/2023, Additional history exists HPV Vaccines Aged Out No longer eligi ble based on patient's age to complete this topic Pneumococcal vaccine <65 Aged Out No longer eligible based on patient's age to complete this topic Procedures Procedure Name Priority Date/Time Associated Diagnosis Comments SURGICAL PATHOLOGY Routine 04/17/2025 10 :10 AM ANGULAR JS DEVELOPER from Last 3 Months Results * Surgical pathology (04/17/2025 10:10 AM ANGULAR JS DEVELOPER) Skin, shave biopsy 04/17/2025 10:10 AM ANGULAR JS DEVELOPER 04/18/2025 11:19 AM ANGULAR JS DEVELOPER Narrative 04/25/2025 2:41 PM ANGULAR JS DEVELOPER [facility] results best viewed via link to PDF [facility] [address] [place] [address], [address], [place] [address] [email or web address] Note to Patients: This report may contain a detailed description of human tissue sent by a health care provider to the laboratory for pathologic evaluation. The content of this report is essential for diagnosis and may provide important critical findings. This information may be unfamiliar to patients to review without a medical professional present. It is advised that the patient review this report in the presence of a health care provider who can answer questions and explain the details. FINAL REPORT Patient Information: PATIENT NAME: INGE MUKHERJEE SEX: M : 1980 (Age: 45) Specimen Information: COLLECTED: 04/17/2025 RECEIVED: 04/18/2025 REPORTED: 04/25/2025 Submitting Physician Information: Joselyn Reyes, [facility], [address] [place] [address], DERMATOPATHOLOGY REPORT RESULTS DIAGNOSIS: A. SKIN, LEFT MID DORSAL INDEX FINGER, SHAVE BIOPSY: CHRONIC SPONGIOTIC DERMATITIS Note: These changes may be seen in nummular dermatitis, allergic contact dermatitis, id reactions and in patients who clinically appear to have atopic dermatitis. B. SKIN, LEFT CENTRAL MU-ISM, SHAVE BIOPSY: BASAL CELL CARCINOMA aislinn/lac By this signature, I attest that the above diagnosis is based upon my personal examination of the slides(and/or other material indicated in the diagnosis). Jayla Milner M.D. Report Electronically Reviewed and Signed Out By Jayla Milner M.D. 04/25/2025 14:41:06 CLINICAL INFORMATION A. DERMATITIS UNSPECIFIED VS. HYPERSENSITIVITY REACTION VS. NUMMULAR ECZEMA VS. VASCULITIS VS. CELLULITIS B. NEOPLASM OF UNCERTAIN BEHAVIOR VS. BCC SPECIMEN DATA MICROSCOPIC DESCRIPTION: A. There is scale crust, spongiosis and a superficial perivascular inflammatory cell infiltrate with lymphocytes and histiocytes. (L30.9) B. Irregular aggregates of atypical basal epithelial cells with palisading of their peripheral nuclei are present within the dermis. (C44.91) GROSS DESCRIPTION: A. Received in a formalin-containing bottle is a superficial fragment of pale mead and finely scaling skin measuring 0.9 by 0.9 by 0.1 cm. The surgical margin is inked blue. The specimen is sectioned into 4 pieces and submitted entirely in a single cassette. Due to shrinkage, measurements may be different than those at time of procedure. B. Received in a formalin-containing bottle is a superficial fragment of pink- mead, slightly raised and hair-bearing skin measuring 0.9 by 0.6 by 0.1 cm. The surgical margin is inked blue. The specimen is sectioned into 3 pieces and submitted entirely in a single cassette. Due to shrinkage, measurements may be different than those at time of procedure. exr/mat ICD-9 ZSD.1463 ZSD.176 ZSD.509 Clerical Data A; 02177, 67764 B; 84206 The characteristics of special, immunohistochemical, and immunofluorescence stains and in-situ hybridization tests performed by the [facility] were deemed acceptable in ongoing quality assurance associate measures and in compliance with regulations drawn from the Clinical Laboratory Improvement Act ya3543 (CLIA '88). Control reactions for all stains performed were deemed adequate and appropriate by a pathologist prior to evaluation of patient tissue. Some diagnoses were rendered with the assistance of laboratory-developed tests utilizing analyte-specific reagents; the performance characteristic of these tests were determined by [facility] and are not cleared or approved by the [place] Food an Drug administration. Laboratory developed test may only be performed in a facility that is certified by the [facility] as a high-complexity laboratory under CLIA '88. These tests are used for clinical purposes and are not investigational. us Notinfile Unknown LAB PATHOLOGY ORDERABLES Final Result from Last [address] [place] [place] [address] Care Teams Aircraft Engine Technician Relationship Specialty Start Date End Date Yash Loza MD [address] [place] [address] [place] [address] PCP - General Family Medicine 12/16/20
--- OUTSIDE RECORDS SUMMARY | 2025-05-22 10:19 | XMS_ITS | Clinical Summary ---
Author Organization [facility] [employer] [place] Address [address] [place] [address] [place] [address] Care Team Providers Care Geospatial Technologist Name Role Phone Kelvin Aguilera DO Primary Care Provider [phone] Allergies No known active allergies Medications lisinopriL [...] 12/03/2022 Overview (12/03/2022): Severe on sleep study 2018. In Media Vitamin D deficiency 11/26/2022 Elevated bilirubin 11/26/2022 Overview (11/26/2022): Negative eval at hepatology consult 2021 Environmental and seasonal allergies 09/02/2021 Anxiety state 05/18/2019 HTN (hypertension), benign 05/18/2019 Hyperlipidemia Encounters Date Type Department Care Team Description 05/21/2025 External Device Data STL ABSTRACTION Provider, Abstract 05/14/2025 External Device Data STL ABSTRACTION Provider, Abstract 04/05/2025 2:30 PM CDT Immunization [facility] at Work [employer] [place] [address] [place] [place] [address] [phone] Need for prophylactic vaccination and inoculation against influenza (Primary Dx) 04/03/2025 External Device Data STL ABSTRACTION Provider, Abstract 04/02/2025 External Device Data STL ABSTRACTION Provider, Abstract 03/19/2025 11:30 AM CDT Office Visit [facility] Oncology and Hematology - [address] [place] [id number] Dimitri Stiles MD Malignant neoplasm of colon, unspecified part of colon (CMS/HCC) (Primary Dx) 03/19/2025 Orders Only [facility] Hematology - [address] [place] [id number] Dimitri Stiles MD 03/18/2025 Orders Only [facility]ology - [address] [place] [id number] Dimitri Stiles MD 03/13/2025 Orders Only [facility]ology - [address] [place] [id number] Dimitri Stiles MD 02/20/2025 External Device Data STL ABSTRACTION Provider, Abstract from Last 3 Months Immunizations Immunization Administration Dates Next Due (ADACEL/BOOSTRIX)(10 YR UP) TDAP VACCINE, 0.5ML, IM 05/18/2019 (PFIZER)(12 YR UP) COVID-19 VACCINE - EMERGENCY USE AUTHORIZATION, MRNA, [id number](PF) 30 MCG/0.3 ML IM SUSP 11/11/2020,10/21/2020 INFLUENZA VACCINE QUADRIVALENT 6 MOS UP IM 03/07 INFLUENZA VACCINE QUADRIVALE NT 6 MOS UP PF IM 03/17/2023,03/25/2021,03/03/2020 INFLUENZA VACCINE TRIVALENT SPLIT VIRUS, (6 MOS UP), 0.5ML (PF), IM 04/05/2025,03/14/2024 Family History Medical History Relation Name Comments [...] Sign Reading Time Taken Comments Blood Pressure 126/85 03/19/2025 11:25 AM CDT Pulse 73 03/19/2025 11:22 AM CDT Temperature 36.1 C (96.9 F) 03/19/2025 11:22 AM CDT Respiratory Rate 16 03/19/2025 11:2 2 AM CDT Oxygen Saturation 98% 03/19/2025 11: 22 AM CDT Inhaled Oxygen Concentration - - Weight 117.6 kg (259 lb 3.2 oz) 025 11:22 AM CDT Height 185.4 cm (6' 1) 09/12/2024 2:31 PM CDT Body Mass Index 34.2 09/12/2024 2:31 PM CDT Plan of Treatment Upcoming Encounters Date Type Department Care Team (Late st Contact Info) Description 06/27/2025 11:15 AM PROGRAMMABLE LOGIC CONTROLLER ASSEMBLER Office Visit [facility] Oncology and Hematology - [place] [place] [address] Dimitri Stiles MD [address] [facility] [address] [place] [address] Health Maintenance Due Date Last Done Comments HEPATITIS B VACCINES (1 of 3 - 19+ 3-dose series) 1998 COVID-19 Vaccine (3 2024-2 6 season) 2025 11/11/2020, 10/21/2020 Pre-Diabetes and Diabetes Screening 03/31/2025 03/31/2022, 09/02/2021, 05/21/2020 DTAP/TDAP/TD VACCINES (2 - T d or Tdap) 05/18/2029 05/18/2019 INFLUENZA VACCINE Completed 04/05/2025, , 03/17/2023, Additional history exists HPV VACCINES (No Doses Required) Completed Procedures Procedure Name Priority Date/Time Associated Diagnosis Comments COMPREHENSIVE METABOLIC PANEL Routine 03/18/2025 1:46 PM CDT COMPREHENSIVE METABOLIC PANEL Routine 03/18/2025 8:[address] ABDOMEN PELVIS W CONTRAST Routine 03/12/2025 10:37 AM CDT HEMOGLOBIN A1C Routine 03/31/2022 7:19 AM CDT Screening for condition from Last 3 Months or Most Recently Relevant to Health Maintenance Results * COMPREHENSIVE METABOLIC PANEL (03/18/2025 1:46 PM CDT) Only the most recent of2 resultswithin the time period is included. Blood us Dimitri Stiles MD CHEMISTRY ORDERABLES Final Resu lt * CT ABDOMEN PELVIS W CONTRAST (03/12/2025 10:37 AM CDT) Anatomical Region Laterality Modality Abdomen Computed Tomogra phy us Dimitri Stiles MD CT ORDERABLES Final Result * HEMOGLOBIN A1C (03/31/2022 7:19 AM CDT) [...] diagnosis of diabetes in children. According to [place] Diabetes Association (ADA) guidelines, hemoglobin A1c <7.0% represents optimal control in non- diabetic patients. Different metrics may apply to specific patient populations. Standards of Medical Care in Diabetes(ADA). ESTIMATED AVERAGE GLUCOSE (MG/DL) 108 mg/dL [facility] ESTIMATED AVERAGE GLUCOSE (MMOL/L) 6.0 mmol/L [employer] Comment: Test Performed at: [facility] [address] [place] [address] Marco Roberto D.O., MPH Blood 03/31/2022 7:19 AM CDT 04/01/2022 8:27 AM CDT Shira Anguiano [employer] CHEMISTRY ORDERABLES F inal Result [facility] [phone] [facility] [address] [place] [address] from Last 3 Months or Most Recently Relevant to Health Maintenance Insurance [employer] * Guarantor: MICHELLE MILLER-[employer] (C) Account Type Relation to Patient Date of Phone Billing Address Corporate Employer ATTN: [employer] [address] [address] [employer] Care Teams Geospatial Technologist Relationship Specialty Start Date End Date Kelvin Aguilera DO [address] [place] [address] PCP - General Family Practice 12/19/23
--- OUTSIDE RECORDS SUMMARY | 2025-05-22 10:19 | XMS_ITS | Encounter Summary ---
Author Organization [facility] Address [address] [place] [address] Care Team Providers Care Assistant Head Cashier Name Role Phone Kelvin Aguilera DO Primary Care Provider [phone] Encounter Details Date Type Department Care Team (Late st Contact Info) Description 05/21/2025 External Device Data STL ABSTRACTION [...] st Contact Info) Description 06/27/2025 11:15 AM POWDER OPERATOR Office Visit [facility] Oncology and Hematology - [address] [facility] [address] [place] [address] Dimitri Stiles MD [address] [facility] [address] [place] [address] documented as of this encounter Visit Diagnoses Not on filedocumented in this encounter Care Teams Assistant Head Cashier Relationship Specialty Start Date End Date Kelvin Aguilera DO [address] [place] [phone] PCP - General Family Practice 12/19/23 documented as of this encounter
--- OUTSIDE RECORDS SUMMARY | 2025-05-22 10:19 | XMS_ITS | Clinical Summary ---
Author Organization [facility] Address [address] [place] [address] Care Team Providers Care Seafood Preparer Name Role Phone Pcp, No Primary Care Provider [phone] Social History Tobacco Use Types Packs/Day Years Used Date Smoking Tobacco: Never Assessed Sex and Gender Information Value Date Recorded Sex Assigned at Not on file Legal Sex Male 7:57 AM EST Gender Identity Not on file Sexual Orientation Not on file Plan of Treatment Not on file Medical Devices Not on file Insurance [facility] MEDICARE Care Teams Seafood Preparer Relationship Specialty Start Date End Date Pcp, No PCP - General Family Medicine 06/28/20
[2025-05-22 10:31] LABS: Thyroid Stimulating Hormone Reflex 0.910 uIU/mL (0.465-4.68)
== END 2025-05-22 09:20 | disposition home or self-care (01) ==
PROVIDERS: PCP Nurse Practitioner Family; Visit Provider Nurse Practitioner Family
DX: Z00.00 Encounter for general adult medical examination without abnormal findings (principal)
CPT/HCPCS: 36415; 80053; 80061; 83036; 84443; 85025